=== PATIENT | male | born 1930 | race Caucasian/White ===

== ENCOUNTER 2016-11-03 16:23 | Observation (INO) | payer OTHER ==
[~2016-11-03] VITALS: Ht 180.3 cm; Wt 74.0 kg
[~2016-11-03 16:23] MED LIST: CEPH500C3 PO; GLUCTAB OR; JANU25TA OR; LORTA5
[2016-11-03 16:30] VITALS: BP 110/63; PULSE 80; RESP 18; TEMP 98.4; O2SAT 100
[2016-11-03 16:33] VITALS: BP 110/63; PULSE 71; RESP 18; TEMP 97.9; O2SAT 99
--- NOTE | 2016-11-03 16:44 | PD ---
HPI Chief Complaint: Chest Pain Time Seen by Provider: 16:30 Travel History International Travel<30 days: No Contact w/Intl Traveler<30days: No Traveled to known affect area: No History of Present Illness HPI 86-year-old male who is hard of hearing with a history of diabetes presents via EMS for evaluation of chest pain. He reports that over the past month he has had approximately 4 episodes of substernal chest pressure. Symptoms tend to last for a few minutes at a time and then resolved. Today she was sitting in a chair at the in waiting on an appointment with his primary care physician when he had an episode of chest pressure. It lasted for few minutes and then resolved. There are no obvious artery relieving factors. He was sent here via EMS for further evaluation. He currently has no pressure at all. He was given 2 nitroglycerin and 4 baby aspirin at the [place]. Denies any associated shortness of breath, diaphoresis, nausea or vomiting, recent illness, calf swelling, abdominal pain, fevers or chills. He believes that he had a stress test about 15 years ago. No personal history of coronary artery disease. No other complaints. PFSH Past Medical History Cancer: Yes (PROSTATE/RECENT DX) Diabetes: Yes Patient Takes Glucophage: No Diminished Hearing: Yes ?: Not Past Surgical History Abdominal Surgery: Yes (RT INGUINAL HERNIA REPAIR) Eye Surgery: Yes Social History Alcohol Use: Yes (OCCAS) Tobacco Use: No Substance Use: No Allergies-Medications (Allergen,Severity, Reaction): Coded Allergies: No Known Allergies (Verified , 05/27/12) Reported Meds & Prescriptions Reported Meds & Active Scripts Active Review of Systems Except as stated in HPI: all other systems reviewed are Neg Physical Exam Narrative GENERAL: Pleasant well-developed well-nourished elderly male in no acute distress answering questions appropriately SKIN: Warm and dry. HEAD: Atraumatic. Normocephalic. EYES: Pupils equal and round. No scleral icterus. No injection or drainage. ENT: No nasal bleeding or discharge. Mucous membranes pink and moist. NECK: Trachea midline. No JVD. CARDIOVASCULAR: Regular rate and rhythm. No murmur appreciated. RESPIRATORY: No accessory muscle use. Clear to auscultation. Breath sounds equal bilaterally. GASTROINTESTINAL: Abdomen soft, non-tender, nondistended. Hepatic and splenic margins not palpable. MUSCULOSKELETAL: No obvious deformities. No edema. NEUROLOGICAL: Awake and alert. No obvious cranial nerve deficits. Motor grossly within normal limits. Normal speech. PSYCHIATRIC: Appropriate mood and affect; insight and judgment normal. Data Data Last Documented VS Vital Signs Date Time Temp Pulse Resp B/P Pulse Ox O2 Delivery O2 Flow Rate FiO2 11/03/16 16:33 71 18 99 Room Air 11/03/16 16:33 97.9 110/63 Orders Electrocardiogram (11/03/16 16:42) Basic Metabolic Panel (Bmp) (11/03/16 16:42) Ckmb (Isoenzyme) Profile (11/03/16 16:42) Complete Blood Count With Diff (11/03/16 16:42) Magnesium (Mg) (11/03/16 16:42) Prothrombin Time / Inr (Pt) (11/03/16 16:42) Act Partial Throm Time (Ptt) (11/03/16 16:42) Troponin I (11/03/16 16:42) Chest, Single Ap (11/03/16 16:42) Ecg Monitoring (11/03/16 16:42) Bilateral Bp Monitoring (11/03/16 16:42) Iv Access Insert/Monitor (11/03/16 16:42) Oximetry (11/03/16 16:42) Oxygen Administration (11/03/16 16:42) Sodium Chloride 0.9% Flush (Ns Flush) (11/03/16 16:45) CKMB (11/03/16 16:45) CKMB% (11/03/16 16:45) Activity Bed Rest With Brp (11/03/16 18:02) Vital Signs (Adult) Q4H (11/03/16 18:02) Cardiac Rhythm .As Directed (11/03/16 18:02) ^ Notify Dr: Other .PRN (11/03/16 18:02) ^ Notify Dr. Parameters (11/03/16 18:02) Resp Oxygen Nasal Cannula (11/03/16 ) Diet Heart Healthy (11/03/16 Dinner) Ckmb (Isoenzyme) Profile (11/03/16 19:45) Ckmb (Isoenzyme) Profile (11/03/16 22:45) Troponin I (11/03/16 19:45) Troponin I (11/03/16 22:45) Electrocardiogram (11/03/16 19:45) Electrocardiogram (11/03/16 22:45) ^ Obtain (11/03/16 18:02) Sodium Chloride 0.9% Flush (Ns Flush) (11/03/16 18:15) Sodium Chloride 0.9% Flush (Ns Flush) (11/03/16 21:00) Tassel Snipper / Telemetry EMELY.Q8H (11/03/16 18:02) Npo After Midnight W/ Po Meds (11/03/16 Dinner) Admit Order (Ed Use Only) (11/03/16 18:07) Labs Laboratory Tests Test 11/03/16 16:45 White Blood Count 7.7 TH/MM3 Red Blood Count 3.96 MIL/MM3 Hemoglobin 12.3 GM/DL Hematocrit 36.1 % Mean Corpuscular Volume 91.2 FL Mean Corpuscular Hemoglobin 31.1 PG Mean Corpuscular Hemoglobin 34.0 % Concent Red Cell Distribution Width 14.1 % Platelet Count 154 TH/MM3 Mean Platelet Volume 9.5 FL Neutrophils (%) (Auto) 71.5 % Lymphocytes (%) (Auto) 19.1 % Monocytes (%) (Auto) 7.1 % Eosinophils (%) (Auto) 1.3 % Basophils (%) (Auto) 1.0 % Neutrophils # (Auto) 5.5 TH/MM3 Lymphocytes # (Auto) 1.5 TH/MM3 Monocytes # (Auto) 0.5 TH/MM3 Eosinophils # (Auto) 0.1 TH/MM3 Basophils # (Auto) 0.1 TH/MM3 CBC Comment DIFF FINAL Differential Comment Prothrombin Time 10.8 SEC Prothromb Time International 1.0 RATIO Ratio Activated Partial 25.9 SEC Thromboplast Time Sodium Level 142 MEQ/L Potassium Level 4.7 MEQ/L Chloride Level 106 MEQ/L Carbon Dioxide Level 30.4 MEQ/L Anion Gap 6 MEQ/L Blood Urea Nitrogen 32 MG/DL Creatinine 1.50 MG/DL Estimat Glomerular Filtration 44 ML/MIN Rate Random Glucose 138 MG/DL Calcium Level 8.8 MG/DL Magnesium Level 2.0 MG/DL Total Creatine Kinase 106 U/L Creatine Kinase MB 3.0 NG/ML Troponin I LESS THAN 0.02 NG/ML MDM Medical Decision Making Medical Screen Exam Complete: Yes Emergency Medical Condition: Yes Medical Record Reviewed: Yes Interpretation(s) EKG sinus tachycardia Differential Diagnosis Acute coronary syndrome, angina, costochondritis, GERD, pericarditis, myocarditis, pneumonia, pneumothorax Narrative Course 86-year-old male with diabetes was sent from the [place] for evaluation of substernal chest pressure which lasted for a few minutes and then resolved. He received 325 mg of aspirin as well as 2 nitroglycerin reportedly at the [facility] today. Currently he feels fine. We'll check basic laboratory, chest x-ray and EKG. Ultimately the patient will be admitted to the chest pain center for rule out purposes. Laboratory is been reviewed. He does have renal insufficiency with no recent creatinine and BUN on file. He can likely follow-up with his primary care physician about this after discharge for repeat BMP. Diagnosis Primary Impression: Chest pain Qualified Code: R07.9 - Chest pain, unspecified type Admitting Information Admitting Physician Requests: Edinson Sheriff Nov 03, 2016 16:44
[2016-11-03] MEDS ORDERED: SODIUM CHLORIDE 0.9% FLUSH 5 ML FLUSH IVF PRN ×2 (16:45→18:15)
[2016-11-03 17:00] LABS: AUTOMATED NEUTROPHIL # 5.5 TH/MM3 (1.8-7.7); BASOPHIL # 0.1 TH/MM3 (0-0.2); EOSINOPHIL # 0.1 TH/MM3 (0-0.4); EOSINOPHIL % 1.3 % (0.0-4.0); HEMATOCRIT 36.1 % (39.0-51.0); HEMO FLAGS DIFF FINAL; LYMPH % 19.1 % (9.0-44.0); LYMPHOCYTE # 1.5 TH/MM3 (1.0-4.8); MEAN CELL VOLUME 91.2 FL (80.0-100.0); MEAN CORPUSCULAR HEMOGLOBIN 31.1 PG (27.0-34.0); MONO % 7.1 % (0.0-8.0); NEUT % 71.5 % (16.0-70.0); PLATELET COUNT 154 TH/MM3 (150-450); RED BLOOD COUNT 3.96 MIL/MM3 (4.50-5.90); RED CELL DISTRIBUTION WIDTH 14.1 % (11.6-17.2); WHITE BLOOD COUNT 7.7 TH/MM3 (4.0-11.0)
[2016-11-03 17:09] LABS: APTT (PATIENT) 25.9 SEC (24.3-30.1); PROTHROMBIN TIME - PATIENT 10.8 SEC (9.8-11.6)
[2016-11-03 17:22] LABS: ANION GAP 6 MEQ/L (5-15); BICARBONATE 30.4 MEQ/L (21.0-32.0); BLOOD UREA NITROGEN 32 MG/DL (7-18); CHLORIDE 106 MEQ/L (98-107); GLOMERULAR FILTRATION RATE 44 ML/MIN (>89); POTASSIUM 4.7 MEQ/L (3.5-5.1); SODIUM (NA) 142 MEQ/L (136-145)
[2016-11-03 17:27] LABS: CREATINE KINASE 106 U/L (39-308)
--- NOTE | 2016-11-03 17:40 | PD ---
Physical Exam Date Seen by Provider: Nov 03, 2016 Time Seen by Provider: 17:15 Narrative Ancillary Baylee Phillips. The patient presents here from the [place] after he had an episode of chest pain. Patient states he's had 4 episodes of chest pain over the last month. While waiting the [facility] waiting room, he had another episode of chest pain/chest pressure. They gave him 2 nitroglycerin and aspirin and sent him here for further evaluation. The patient does have a history of diabetes mellitus. He is pain-free now at the time of my examination. Data Data Last Documented VS Vital Signs Date Time Temp Pulse Resp B/P Pulse Ox O2 Delivery O2 Flow Rate FiO2 11/03/16 16:33 71 18 99 Room Air 11/03/16 16:33 97.9 110/63 Orders Electrocardiogram (11/03/16 16:42) Basic Metabolic Panel (Bmp) (11/03/16 16:42) Ckmb (Isoenzyme) Profile (11/03/16 16:42) Complete Blood Count With Diff (11/03/16 16:42) Magnesium (Mg) (11/03/16 16:42) Prothrombin Time / Inr (Pt) (11/03/16 16:42) Act Partial Throm Time (Ptt) (11/03/16 16:42) Troponin I (11/03/16 16:42) Chest, Single Ap (11/03/16 16:42) Ecg Monitoring (11/03/16 16:42) Bilateral Bp Monitoring (11/03/16 16:42) Iv Access Insert/Monitor (11/03/16 16:42) Oximetry (11/03/16 16:42) Oxygen Administration (11/03/16 16:42) Sodium Chloride 0.9% Flush (Ns Flush) (11/03/16 16:45) CKMB (11/03/16 16:45) CKMB% (11/03/16 16:45) Activity Bed Rest With Brp (11/03/16 18:02) Vital Signs (Adult) Q4H (11/03/16 18:02) Cardiac Rhythm .As Directed (11/03/16 18:02) ^ Notify Dr: Other .PRN (11/03/16 18:02) ^ Notify . Parameters (11/03/16 18:02) Resp Oxygen Nasal Cannula (11/03/16 ) Diet Heart Healthy (11/03/16 Dinner) Ckmb (Isoenzyme) Profile (11/03/16 19:45) Ckmb (Isoenzyme) Profile (11/03/16 22:45) Troponin I (11/03/16 19:45) Troponin I (11/03/16 22:45) Electrocardiogram (11/03/16 19:45) Electrocardiogram (11/03/16 22:45) ^ Obtain (11/03/16 18:02) Sodium Chloride 0.9% Flush (Ns Flush) (11/03/16 18:15) Sodium Chloride 0.9% Flush (Ns Flush) (11/03/16 21:00) Shipping Hand / Telemetry EMELY.Q8H (11/03/16 18:02) Npo After Midnight W/ Po Meds (11/03/16 Dinner) Admit Order (Ed Use Only) (11/03/16 18:07) Labs Laboratory Tests Test 11/03/16 16:45 White Blood Count 7.7 TH/MM3 Red Blood Count 3.96 MIL/MM3 Hemoglobin 12.3 GM/DL Hematocrit 36.1 % Mean Corpuscular Volume 91.2 FL Mean Corpuscular Hemoglobin 31.1 PG Mean Corpuscular Hemoglobin 34.0 % Concent Red Cell Distribution Width 14.1 % Platelet Count 154 TH/MM3 Mean Platelet Volume 9.5 FL Neutrophils (%) (Auto) 71.5 % Lymphocytes (%) (Auto) 19.1 % Monocytes (%) (Auto) 7.1 % Eosinophils (%) (Auto) 1.3 % Basophils (%) (Auto) 1.0 % Neutrophils # (Auto) 5.5 TH/MM3 Lymphocytes # (Auto) 1.5 TH/MM3 Monocytes # (Auto) 0.5 TH/MM3 Eosinophils # (Auto) 0.1 TH/MM3 Basophils # (Auto) 0.1 TH/MM3 CBC Comment DIFF FINAL Differential Comment Prothrombin Time 10.8 SEC Prothromb Time International 1.0 RATIO Ratio Activated Partial 25.9 SEC Thromboplast Time Sodium Level 142 MEQ/L Potassium Level 4.7 MEQ/L Chloride Level 106 MEQ/L Carbon Dioxide Level 30.4 MEQ/L Anion Gap 6 MEQ/L Blood Urea Nitrogen 32 MG/DL Creatinine 1.50 MG/DL Estimat Glomerular Filtration 44 ML/MIN Rate Random Glucose 138 MG/DL Calcium Level 8.8 MG/DL Magnesium Level 2.0 MG/DL Total Creatine Kinase 106 U/L Creatine Kinase MB 3.0 NG/ML Troponin I LESS THAN 0.02 NG/ML [facility] Medical Record Reviewed: Yes Supervised Visit with CHALO: Yes Narrative Course 86-year-old with a history of diabetes mellitus, presents from the [place] with complaints of chest pain. The patient had 4 previous episodes in the last month. Patient's EKG does not show acute ST elevations or depressions with a heart rate 110. The patient's cardiac enzymes are within normal limits. Given his pain and symptoms, we have recommended that he be admitted to the chest pain center. Initially the patient did not wish to stay however upon further encouragement, he agreed to stay. Diagnosis Primary Impression: Chest pain Additional Impression: Diabetes mellitus Taiwo Chery MD Nov 03, 2016 17:40
--- NOTE | 2016-11-03 18:03 | RADRPT ---
EXAM DATE/TIME: 11/03/2016 17:17 [facility] COMPARISON: No previous studies available for comparison. INDICATIONS : Short of breath. MEDICAL HISTORY : None. SURGICAL HISTORY : None. ENCOUNTER: Initial ACUITY: 1 day PAIN SCORE: 0/10 LOCATION: Bilateral chest FINDINGS: A single view of the chest demonstrates the lungs to be symmetrically aerated without evidence of mas s, infiltrate or effusion. The cardiomediastinal contours are unremarkable. Osseous structures are intact. CONCLUSION: No evidence of acute cardiopulmonary disease. Duong Moreno MD on November 03, 2016 at 18:01 Board Certified Radiologist. This report was verified electronically.
[2016-11-03 18:56] VITALS: BP 134/73; PULSE 67; RESP 18; O2SAT 100
[2016-11-03] MEDS ORDERED: METF500T PO (19:14)
[2016-11-03] MEDS ORDERED: INSULIN SQ (19:14)
[2016-11-03] MEDS ORDERED: GLIM4TAB PO (19:14)
[2016-11-03 20:16] VITALS: BP 139/79; PULSE 86; RESP 16; O2SAT 94
[2016-11-03] MEDS: SODIUM CHLORIDE 0.9% FLUSH 5 ML FLUSH IVF SCH (20:53)
[2016-11-03 21:16] LABS: CREATINE KINASE 87 U/L (39-308)
[2016-11-03 23:36] VITALS: BP 109/65; PULSE 55; RESP 18; TEMP 98.2; O2SAT 97
[2016-11-04 00:10] VITALS: PULSE 60
[2016-11-04 00:34] LABS: CREATINE KINASE 81 U/L (39-308)
[2016-11-04 04:00] VITALS: BP 122/71; PULSE 65; RESP 18; TEMP 97.8; O2SAT 96
[2016-11-04 04:05] VITALS: PULSE 66
[2016-11-04 07:35] VITALS: BP 132/71; PULSE 78; RESP 20; TEMP 98.7; O2SAT 96
[2016-11-04 08:00] VITALS: PULSE 83
[2016-11-04] MEDS ORDERED: PANTOPRAZOLE SOD 40 MG DELAYED RELEASE TAB PO SCH (09:00)
[2016-11-04] MEDS ORDERED: ACETAMINOPHEN 500 MG CPLT PO PRN (09:00)
[2016-11-04] MEDS ORDERED: NITROGLYCERIN 0.4 MG SL 25 TABS/BTL SL PRN (09:00)
[2016-11-04] MEDS ORDERED: ONDANSETRON HCL 4 MG/2 ML VIAL IV PRN (09:00)
[2016-11-04] MEDS ORDERED: ASPIRIN 325 MG TAB PO SCH (09:00)
[2016-11-04] MEDS: SODIUM CHLORIDE 0.9% FLUSH 5 ML FLUSH IVF SCH (09:04)
[2016-11-04] MEDS ORDERED: GLUCAGON 1 MG/ML VIAL OTHER PRN (10:15)
[2016-11-04] MEDS ORDERED: DEXTROSE 50% IN WATER 50 ML VIAL(D50) IV PUSH PRN (10:15)
--- NOTE | 2016-11-04 10:21 | HHI.HP ---
HPI Primary Care Physician Physician [facility]- Dr. Portillo Chief Complaint Chest pressure History of Present Illness 86-year-old male with known diabetes presents to the emergency room via EMS. He was at his regular scheduled primary care appointment yesterday. There he developed chest pressure in his midsternal area severity 11/05. States this is not pain but chest pressure. No radiation. Duration approximately 15 minutes. No associated symptoms. No precipitating factors. No relieving factors. Over the past month, he had 4 episodes similar to yesterday's chest pressure episode. Relieving factors eating. Chest pressures nonexertional. Past episode also lasted approximately 15 minutes. Never had chest pain in the past. Position, movement, or breathing did not make pressure better or worse. Feels similar to acid reflux he has had in the past. In fact, one of his chest pressure episodes was relieved with 3 Tums. Endorses multiple stressors in past 6 months, including 5 close relatives/friends have . Review of Systems General: No fatigue,weakness, fever, chills, recent travel, recent illness, or change in appetite HEENT: No BROOKE, no vision changes, no nasal congestion or drainage, no dysphasia CV: No current chest pain or pressure. Occasionally feels palpitations and evening hours. No intermittent leg pain or dizziness RESP: No SOB, cough, wheeze, or recent URI GI: No nausea, vomiting, bowel changes, constipation, pain, distention, melena, blood in the stool. Last week endorses day diarrhea, this has since resolved. No change in appetite, no unintentional weight gain or weight loss : No dysuria, urgency, frequency, history of elevated PSA-follows with PCP. EXT: No lower leg edema, no paraesthesias MS: No discomfort or change in ROM. NEURO: No change in memory, dizziness, difficulty with balance, LOC, motor/ sensory deficits PSYCH: No anxiety or depression. Situational stress as stated above. SKIN: No rashes, no concerning lesions Past Family Social History Allergies: Coded Allergies: No Known Allergies (Verified , 05/27/12) Past Medical History Diabetes, BPH, hard of hearing Past Surgical History None Reported Medications Reported Meds & Active Scripts Active Reported Metformin (Metformin HCl) 500 Mg Tab 1,000 Mg PO BID With meals [Insulin] 5 Units SQ BID-name of insulin unknown at this time Glimepiride 4 Mg Tab 4 Mg PO BID Active Ordered Medications Current Medications Medications (Trade) Dose Ordered Sig/Kristen Route Start Time Stop Time Status Last Admin (Tylenol) 500 mg Q4H PRN PO 11/04/16 09:00 (Zofran Inj) 4 mg Q6H PRN IV 11/04/16 09:00 (Protonix) 40 mg DAILY PO 11/04/16 09:00 11/04/16 09:04 (Nitrostat Sl) 0.4 mg Q5M PRN SL 11/04/16 09:00 (Aspirin) 325 mg DAILY PO 11/04/16 09:00 11/04/16 09:04 (D50w (Vial) Inj) 25 ml UNSCH PRN IV PUSH 11/04/16 10:15 (Glucagon Inj) 1 mg UNSCH PRN OTHER 11/04/16 10:15 Family History Noncontributory for early onset cardiovascular disease Social History Retired, , 4 grown children. He quit smoking 1951. Rare alcohol use. No remote or current illegal drug use. Known diabetes. No known hypertension or hyperlipidemia. Does not take statins or LIANA inhibitor's, states he was never told to do so. Although remembers remotely before changing MDs he was on a pill to "protect my kidneys. " He is active daily. Activities include softball, bowling, and the gym membership. Past cardiac testing Exercise treadmill 1520 years ago. Has never had cardiac catheterization nor required a naphthalene operator. Physical Exam Vital Signs Vital Signs Date Time Temp Pulse Resp B/P Pulse Ox O2 Delivery O2 Flow Rate FiO2 11/04/16 08:00 83 11/04/16 07:35 98.7 78 20 132/71 96 11/04/16 04:05 66 11/04/16 04:00 97.8 65 18 122/71 96 11/04/16 00:10 60 11/03/16 23:36 98.2 55 18 109/65 97 11/03/16 20:16 86 16 139/79 94 Room Air 11/03/16 18:56 67 18 134/73 100 Room Air 11/03/16 16:33 71 18 99 Room Air 11/03/16 16:33 97.9 71 18 110/63 99 Room Air 11/03/16 16:30 98.4 80 18 110/63 100 11/03/16 16:30 98 Room Air Physical Exam GENERAL: Alert WN, WD, NAD, pleasant, male who appears younger than stated age HEAD: NC, AT EYES: Sclera clear, conjunctiva without injection, pupils equal and round ENT: Mucous membranes pink and moist NECK: Supple, no masses CV: RRR, without murmur, rub, gallop, no JVD, S1-S2 no S3-S4. No carotid or femoral bruits RESP: Clear lungs throughout bilateral, no crackles, wheeze, rhonchi, symmetrical chest rise, nonlabored, able to speak in full sentences ABD: Soft, flat, NT, ND, no masses, positive bowel tones BACK: No scoliosis EXT: Pulses +24, no dependent edema MS: Normal tone 4 extremities, nontender, no obvious deformities, full range of motion NEURO: CN II through CN XII grossly intact, motor strength 5/5, gait WNL PSYCH: A+O 3, pleasant affect, appropriate speech, appropriate mood and affect , insight and judgment SKIN: Normal turgor, normal texture, no lesions, no rashes, brisk cap refill, even hair distribution Laboratory Laboratory Tests Test 11/03/16 11/03/16 11/03/16 16:45 20:04 23:58 White Blood Count 7.7 Red Blood Count 3.96 Hemoglobin 12.3 Hematocrit 36.1 Mean Corpuscular Volume 91.2 Mean Corpuscular Hemoglobin 31.1 Mean Corpuscular Hemoglobin 34.0 Concent Red Cell Distribution Width 14.1 Platelet Count 154 Mean Platelet Volume 9.5 Neutrophils (%) (Auto) 71.5 Lymphocytes (%) (Auto) 19.1 Monocytes (%) (Auto) 7.1 Eosinophils (%) (Auto) 1.3 Basophils (%) (Auto) 1.0 Neutrophils # (Auto) 5.5 Lymphocytes # (Auto) 1.5 Monocytes # (Auto) 0.5 Eosinophils # (Auto) 0.1 Basophils # (Auto) 0.1 CBC Comment DIFF FINAL Differential Comment Prothrombin Time 10.8 Prothromb Time International 1.0 Ratio Activated Partial 25.9 Thromboplast Time Sodium Level 142 Potassium Level 4.7 Chloride Level 106 Carbon Dioxide Level 30.4 Anion Gap 6 Blood Urea Nitrogen 32 Creatinine 1.50 Estimat Glomerular Filtration 44 Rate Random Glucose 138 Calcium Level 8.8 Magnesium Level 2.0 Total Creatine Kinase 106 87 81 Creatine Kinase MB 3.0 Troponin I LESS THAN 0.02 LESS THAN 0.02 LESS THAN 0.02 Result Diagram: 11/03/16 1645 11/03/16 1645 Imaging Last Impressions Chest X-Ray 11/03/16 1642 Signed Impressions: Service Date/Time: Thursday, November 03, 2016 17:17 - CONCLUSION: No evidence of acute cardiopulmonary disease. Duong Moreno MD Course EKGs 3 EKGs show normal sinus rhythm, normal axis, with no ST or T-segment changes. First EKG showed sinus arrhythmia/sinus rhythm. Assessment and Plan Assessment and Plan #1 Chest painadmitted to chest pain center. Ruled out with 3 EKGs, cardiac enzymes, and monitored throughout evening. Was seen and evaluated by Dr. Jani Perry. Completed an exercise stress test. Stress test was on remarkable with no signs of ischemia and good exercise tolerance. Will be discharged this afternoon. #2 GERDdiscussed in length possibility chest pressure could be related to acid reflux. Encouraged daily [id number] preventative medications and to discuss with PCP at follow-up appointment. Take antacids liberally as needed. #3 DiabetesSSI ordered. No changes in home going medications for discharge. Encouraged patient to discuss with PCP the addition of an liana inhibitor and statin for preventative measures. Catalina Potts Nov 04, 2016 10:21
[2016-11-04] MEDS ORDERED: INSULIN ASPART SUPPLEMENTAL SCALE SQ SCH (11:00)
[2016-11-04 11:15] VITALS: BP 123/66; PULSE 85; RESP 20; TEMP 99.4; O2SAT 99
[2016-11-04] MEDS ORDERED: metFORMIN HCL 500 MG TAB PO SCH (11:15)
--- NOTE | 2016-11-04 11:33 | TR ---
Date Performed: 11/04/2016 Time Performed: 10:27:13 DOCTOR: Jani Perry DRUG LIST: CLINICAL HISTORY: CHEST PAIN REASON FOR TEST: REASON FOR ENDING: OBSERVATION: CONCLUSION: Saeid protocol completed. Stopped sec to exceeding target heart rate and leg fatigue . Maximum KZ=580 Target HR Achieved=91.0% Maximum IN=874/60 Total Exercise Time=7:01. No reprod chest discomfort. Rare PVC. No st t segment changes to sugg ischemia. Good exercise tolerance. Normal bp r esponse. Recovery quick and unremarkable. COMMENTS: Conclusion: Normal treadmill exercise. No evidence of ischemia.
[2016-11-04] MEDS ORDERED: GLIMEPIRIDE 4 MG TAB PO SCH (12:00)
--- NOTE | 2016-11-04 12:04 | HHI.DCPOC ---
Discharge Care Plan Diagnosis: (1) Atypical chest pain (2) GERD (gastroesophageal reflux disease) (3) Diabetes mellitus Goals to Promote Your Health * To prevent worsening of your condition and complications * To maintain your health at the optimal level Directions to Meet Your Goals Take your medications as prescribed Follow your dietary instruction Follow activity as directed Keep your appointments as scheduled Take your immunizations and boosters as scheduled If your symptoms worsen call your PCP, if no PCP go to Urgent Care Center or Emergency Room Smoking is Dangerous to Your Health. Avoid second hand smoke Call the 24-hour hour crisis hotline for domestic abuse at Catalina Potts Nov 04, 2016 12:04
--- NOTE | 2016-11-04 14:40 | EKG ---
Date Performed: 11/03/2016 Time Performed: 23:34:04 PTAGE: 86 years EKG: SINUS BRADYCARDIA WITH OCCASIONAL SUPRAVENTRICULAR PREMATURE COMPLEXES BORDERLINE ECG Sinus arrhythmia PREVIOUS TRACING : 11/03/2016 20.13 Since previous tracing, no significant change noted DOCTOR: Jani Perry Interpretating Date/Time 11/04/2016 14:39:06
--- NOTE | 2016-11-04 14:41 | EKG ---
Date Performed: 11/03/2016 Time Performed: 20:13:23 PTAGE: 86 years EKG: Sinus rhythm WITH MARKED SINUS ARRHYTHMIA BORDERLINE ECG PREVIOUS TRACING : 11/03/2016 16.33 Since previous tracing, no significant change noted DOCTOR: Jani Perry Interpretating Date/Time 11/04/2016 14:39:56
--- NOTE | 2016-11-04 14:43 | EKG ---
Date Performed: 11/03/2016 Time Performed: 16:33:19 PTAGE: 86 years EKG: SINUS TACHYCARDIA ABNORMAL RHYTHM ECG PREVIOUS TRACING : 09/24/2009 21.07 Since previous tracing, no significant change noted DOCTOR: Jani Perry Interpretating Date/Time 11/04/2016 14:42:19
== END 2016-11-04 13:13 | disposition home or self-care (01) ==
LOC: NEPC 16:23 → NEDA 18:08 → UNDOADMOB 18:08 → NEPGCP 23:11
PROVIDERS: ADMIT Internal Medicine Cardiovascular Disease; ATTEND Internal Medicine Cardiovascular Disease
DX: E07.89 Other specified disorders of thyroid (principal); K21.9 Gastro-esophageal reflux disease without esophagitis; E11.9 Type 2 diabetes mellitus without complications
CPT/HCPCS: 71010; 80048; 82550; 82552; 82948; 83735; 84484; 85025; 85610; 85730; 93005; 93017; 99285; G0378

== ENCOUNTER 2017-10-20 19:56 | Inpatient (IN) | payer OTHER, MEDICARE ==
[~2017-10-20] VITALS: Ht 182.9 cm; Wt 65.0 kg
[~2017-10-20 19:56] MED LIST changes: -CEPH500C3 PO; +GLIM4TAB PO; -GLUCTAB OR; +INSULIN SQ; -JANU25TA OR; -LORTA5; +METF500T PO
[2017-10-20 20:02] VITALS: BP 189/85; PULSE 81; RESP 16; TEMP 97.8; O2SAT 99
[2017-10-20] MEDS ORDERED: NOVORP2 SQ (20:08)
[2017-10-20] MEDS ORDERED: MORPHINE SULFATE 2 MG/ML INJ IV PUSH ONE (20:15)
[2017-10-20] MEDS ORDERED: ONDANSETRON HCL 4 MG/2 ML VIAL IV PUSH ONE (20:15)
--- NOTE | 2017-10-20 21:05 | RADRPT ---
EXAM DATE/TIME: 10/20/2017 20:25 [facility] COMPARISON: CHEST SINGLE AP, November 03, 2016, 17:17. INDICATIONS : Trauma due to fall. MEDICAL HISTORY : Diabetes mellitus type II. SURGICAL HISTORY : Hernia repair. ENCOUNTER: Initial ACUITY: 3 weeks PAIN SCORE: 0/10 LOCATION: Bilateral chest FINDINGS: Mild diffuse interstitial prominence similar to the prior exam. No pneumothorax, effusion or new pare nchymal opacity. Cardiomediastinal contours are within normal limits. Bony thorax is grossly intact. CONCLUSION: 1. No acute abnormality or significant interval change. Abhinav Diaz MD on October 20, 2017 at 21:03 Board Certified Radiologist. This report was verified electronically.
--- NOTE | 2017-10-20 21:07 | RADRPT ---
EXAM DATE/TIME: 10/20/2017 20:25 [facility] COMPARISON: No previous studies available for comparison. EXTERNAL COMPARISON : [facility] October 20, 2017 INDICATIONS : Pain due to fall three weeks ago. MEDICAL HISTORY : Diabetes mellitus type II. SURGICAL HISTORY : Hernia repair. ENCOUNTER: Initial ACUITY: 3 weeks PAIN SCORE: 10/10 LOCATION: Right hip, anterior. FINDINGS: Subpectoral right femoral neck fracture. Remaining osseous structures are intact. Joint spaces are ma intained. Sacral arches are intact. Soft tissues are unremarkable. CONCLUSION: 1. Subcapital right femoral neck fracture. Abhinav Diaz MD on October 20, 2017 at 21:04 Board Certified Radiologist. This report was verified electronically.
[2017-10-20 21:17] LABS: AUTOMATED NEUTROPHIL # 11.3 TH/MM3 (1.8-7.7); BASOPHIL # 0.1 TH/MM3 (0-0.2); BASOPHIL % 0.7 % (0.0-2.0); EOSINOPHIL % 0.3 % (0.0-4.0); HEMATOCRIT 36.4 % (39.0-51.0); HEMOGLOBIN 12.2 GM/DL (13.0-17.0); LYMPH % 9.3 % (9.0-44.0); LYMPHOCYTE # 1.2 TH/MM3 (1.0-4.8); MEAN CELL VOLUME 89.3 FL (80.0-100.0); MEAN CORPUSCULAR HEMOGLOBIN 29.8 PG (27.0-34.0); MEAN CORPUSCULAR HGB CONC 33.4 % (32.0-36.0); MEAN PLATELET VOLUME 9.8 FL (7.0-11.0); MONO % 5.4 % (0.0-8.0); MONOCYTE # 0.7 TH/MM3 (0-0.9); NEUT % 84.3 % (16.0-70.0); PLATELET COUNT 228 TH/MM3 (150-450); RED BLOOD COUNT 4.08 MIL/MM3 (4.50-5.90); RED CELL DISTRIBUTION WIDTH 13.3 % (11.6-17.2); WHITE BLOOD COUNT 13.4 TH/MM3 (4.0-11.0)
[2017-10-20 21:24] LABS: INTERNATIONAL NORMALIZED RATIO 1.1 RATIO; PROTHROMBIN TIME - PATIENT 10.7 SEC (9.8-11.6)
[2017-10-20 21:38] LABS: ALT (GPT) 25 U/L (12-78)
[2017-10-20 21:39] LABS: ALBUMIN 3.3 GM/DL (3.4-5.0); AST (GOT) 23 U/L (15-37); BICARBONATE 29.3 MEQ/L (21.0-32.0); BLOOD UREA NITROGEN 51 MG/DL (7-18); CALCIUM 9.3 MG/DL (8.5-10.1); CHLORIDE 97 MEQ/L (98-107); CREATININE 1.65 MG/DL (0.60-1.30); GLOMERULAR FILTRATION RATE 40 ML/MIN (>89); GLUCOSE,RANDOM 319 MG/DL (74-106); MAGNESIUM 2.3 MG/DL (1.5-2.5); SODIUM (NA) 134 MEQ/L (136-145)
[2017-10-20 21:41] LABS: ALKALINE PHOSPHATASE 77 U/L (45-117); TOTAL BILIRUBIN ADULT 0.6 MG/DL (0.2-1.0); TOTAL PROTEIN 7.3 GM/DL (6.4-8.2)
--- NOTE | 2017-10-20 21:44 | PD ---
HPI Chief Complaint: Pain: Acute or Chronic Time Seen by Provider: 20:07 Travel History International Travel<30 days: No Contact w/Intl Traveler<30days: No Traveled to known affect area: No History of Present Illness HPI 87-year-old male that presents to the ED for evaluation of right hip pain. Apparently patient had a fall about 3 weeks ago moving a wheelbarrow. Per patient he was doing some yard work when he lost his footing and landed on his left hip. He was not able to get himself back up and had a they were helping. Per patient he had a lot of pain since and did not seek any medical help until this week when he went to see his doctor. He had an x-ray done yesterday at [facility] that showed apparently fracture. Per patient he was sent here for eval for the fracture. He does not have a orthopedic surgeon. He denies any other medical issues. No head injury. Per patient he has no pain as long as he doesn't move. Any weightbearing or movement makes pain worse. Per patient is 7 out of 10. Currently 4 out of 10. He was given morphine by ambulance. Denies any urinary or bowel movement issues. History of diabetes. No allergies to medication. No other medical issues. PFSH Past Medical History Heart Rhythm Problems: No Cancer: Yes (PROSTATE) Cardiac Catheterization: No Cardiovascular Problems: No High Cholesterol: No Congestive Heart Failure: No Diabetes: Yes Patient Takes Glucophage: Yes Diminished Hearing: Yes Past Surgical History Abdominal Surgery: Yes (RT INGUINAL HERNIA REPAIR) Coronary Artery Bypass Graft: No Eye Surgery: Yes Social History Alcohol Use: Yes (OCCAS) Tobacco Use: No (PT STATES NOT SINCE HIS 30S) Substance Use: No Allergies-Medications (Allergen,Severity, Reaction): Coded Allergies: No Known Allergies (Verified Adverse Reaction, Unknown, 10/20/17) Reported Meds & Prescriptions Reported Meds & Active Scripts Active Reported Novolin R Inj (Insulin Human Regular) 1,000 Unit/10 Ml Vial 7 Units SQ BID Metformin (Metformin HCl) 500 Mg Tab 1,000 Mg PO BID With meals Glimepiride 4 Mg Tab 4 Mg PO BIDAC Review of Systems Except as stated in HPI: all other systems reviewed are Neg Physical Exam Narrative GENERAL: SKIN: Warm and dry. HEAD: Atraumatic. Normocephalic. EYES: Pupils equal and round. No scleral icterus. No injection or drainage. ENT: No nasal bleeding or discharge. Mucous membranes pink and moist. Tongue is midline. No uvula deviation. NECK: Trachea midline. No JVD. CARDIOVASCULAR: Regular rate and rhythm. RESPIRATORY: No accessory muscle use. Clear to auscultation. Breath sounds equal bilaterally. GASTROINTESTINAL: Abdomen soft, non-tender, nondistended. Hepatic and splenic margins not palpable. MUSCULOSKELETAL: Extremities without clubbing, cyanosis, or edema. No obvious deformities. Full ROM of the upper and lower extremities bilaterally. Significant pain with any movement of the right hip. There is some shortening and rotation of the right hip. 2+ pulses bilaterally. sensation intact. NEUROLOGICAL: Awake and alert. No obvious cranial nerve deficits. Motor grossly within normal limits. Five out of 5 muscle strength in the arms and legs. Normal speech. PSYCHIATRIC: Appropriate mood and affect; insight and judgment normal. Data Data Last Documented VS Vital Signs Date Time Temp Pulse Resp B/P (MAP) Pulse Ox O2 Delivery O2 Flow Rate FiO2 10/20/17 20:02 97.8 81 16 189/85 (119) 99 Orders Orders Morphine Inj (Morphine Inj) (10/20/17 20:15) Ondansetron Inj (Zofran Inj) (10/20/17 20:15) Hip, Uni(Ap&Lat) W Ap Pelvis (10/20/17 ) Complete Blood Count With Diff (10/20/17 20:27) Comprehensive Metabolic Panel (10/20/17 20:27) Prothrombin Time / Inr (Pt) (10/20/17 20:27) Act Partial Throm Time (Ptt) (10/20/17 20:27) Urinalysis - C+S If Indicated (10/20/17 20:27) Magnesium (Mg) (10/20/17 20:27) Chest, Single Ap (10/20/17 20:27) Iv Access Insert/Monitor (10/20/17 20:27) Ecg Monitoring (10/20/17 20:27) Oximetry (10/20/17 20:27) Labs Laboratory Tests Test 10/20/17 20:55 White Blood Count 13.4 TH/MM3 Red Blood Count 4.08 MIL/MM3 Hemoglobin 12.2 GM/DL Hematocrit 36.4 % Mean Corpuscular Volume 89.3 FL Mean Corpuscular Hemoglobin 29.8 PG Mean Corpuscular Hemoglobin Concent 33.4 % Red Cell Distribution Width 13.3 % Platelet Count 228 TH/MM3 Mean Platelet Volume 9.8 FL Neutrophils (%) (Auto) 84.3 % Lymphocytes (%) (Auto) 9.3 % Monocytes (%) (Auto) 5.4 % Eosinophils (%) (Auto) 0.3 % Basophils (%) (Auto) 0.7 % Neutrophils # (Auto) 11.3 TH/MM3 Lymphocytes # (Auto) 1.2 TH/MM3 Monocytes # (Auto) 0.7 TH/MM3 Eosinophils # (Auto) 0.0 TH/MM3 Basophils # (Auto) 0.1 TH/MM3 CBC Comment DIFF FINAL Differential Comment Prothrombin Time 10.7 SEC Prothromb Time International Ratio 1.1 RATIO Activated Partial Thromboplast Time 24.5 SEC MDM Medical Decision Making Medical Screen Exam Complete: Yes Emergency Medical Condition: Yes Medical Record Reviewed: Yes Interpretation(s) xray shows subcapital femoral neck fracture CBC & BMP Diagram 10/20/17 20:55 Total Protein 7.3, Albumin 3.3 L, Calcium Level 9.3, Magnesium Level 2.3, Alkaline Phosphatase 77, Aspartate Amino Transf (AST/SGOT) 23, Alanine Aminotransferase (ALT/SGPT) 25, Total Bilirubin 0.6 Differential Diagnosis Fracture versus sprain versus strain versus bruise versus contusion Narrative Course 37-year-old male that presents to the ED for evaluation right hip pain. Patient was properly examined and was found to have signs and symptoms consistent with fracture. I was able to review the records of the x-rays that he had outpatient and the did show right hip subcapital femoral neck fracture. Unclear if patient has an appointment with orthopedic doctor as he is not really sure but he was told to come here to get evaluated as she continues to have pain. X-ray labs were ordered. X-ray labs confirm fracture. This time her condition is for admission for further eval and likely orthopedic consultation and possible surgery. Patient agrees with plan. Patient was given pain medication with relief. Case discussed with Dr. Wu who agrees to admission. Diagnosis Primary Impression: Hip fracture, right Qualified Codes: S72.001A - Fracture of unspecified part of neck of right femur, initial encounter for closed fracture Admitting Information Admitting Physician Requests: Admit Jonah Chau Oct 20, 2017 21:44
[2017-10-20 22:04] VITALS: BP 158/84; PULSE 68; RESP 16; O2SAT 98
[2017-10-20 22:05] VITALS: O2SAT 98
[2017-10-20] MEDS ORDERED: BISACODYL 10 MG SUPP RECTAL PRN (23:00)
[2017-10-20] MEDS ORDERED: GLUCAGON 1 MG/ML VIAL OTHER PRN (23:00)
[2017-10-20] MEDS ORDERED: LACTULOSE SYRUP 20 GM/30 ML CUP PO PRN (23:00)
[2017-10-20] MEDS ORDERED: SODIUM CHLORIDE 0.9% FLUSH 10 ML FLUSH IV FLUSH PRN (23:00)
[2017-10-20] MEDS ORDERED: SENNOSIDES 8.6 MG TAB PO PRN (23:00)
[2017-10-20] MEDS ORDERED: DEXTROSE 50% IN WATER 50 ML VIAL(D50) IV PUSH PRN (23:00)
[2017-10-20] MEDS ORDERED: NALOXONE HCL 0.4 MG/ML AMP IV PUSH PRN (23:00)
[2017-10-20] MEDS ORDERED: ACETAMINOPHEN 325 MG TAB PO PRN (23:00)
[2017-10-20] MEDS ORDERED: ONDANSETRON HCL 4 MG/2 ML VIAL IVP PRN (23:00)
[2017-10-20] MEDS ORDERED: MORPHINE SULFATE 2 MG/ML INJ IV PUSH PRN (23:00)
--- NOTE | 2017-10-20 23:03 | HHI.HP ---
[facility] Admission Diagnosis right hip fracture Diagnoses: Travel History International Travel<30 Days: No Contact w/Intl Traveler <30 Da: No Traveled to Known Affected Are: No History of Present Illness 87-year-old male with past medical history significant for diabetes mellitus presents to the emergency department for evaluation of right hip pain. Approximately 3 weeks ago, the patient was working in his yard with a wheelbarrow when he tripped and fell onto his right side. The patient reports that he has been able to ambulate however only with a 4 wheeled walker. He complains of significant pain in his right hip when going from sitting to standing or standing to sitting. Denies chest pain or shortness of breath. No nausea/vomiting/diarrhea. Review of Systems Except as stated in HPI: all other systems reviewed are Neg Past Family Social History Past Medical History Diabetes mellitus Past Surgical History Hernia repair 2 Reported Medications Reported Meds & Active Scripts Active Reported Novolin R Inj (Insulin Human Regular) 1,000 Unit/10 Ml Vial 7 Units SQ BID Metformin (Metformin HCl) 500 Mg Tab 1,000 Mg PO BID With meals Glimepiride 4 Mg Tab 4 Mg PO BIDAC Allergies: Coded Allergies: No Known Allergies (Verified Adverse Reaction, Unknown, 10/20/17) Family History Father with coronary artery disease Social History Denies tobacco. Occasional alcohol. Denies illicit drugs. Physical Exam Vital Signs Vital Signs Date Time Temp Pulse Resp B/P (MAP) Pulse Ox O2 Delivery O2 Flow Rate FiO2 10/20/17 22:05 98 Room Air 10/20/17 22:04 68 16 158/84 (108) 98 Room Air 10/20/17 20:21 16 10/20/17 20:02 97.8 81 16 189/85 (119) 99 Physical Exam GENERAL: male lying in bed SKIN: No rashes, ecchymoses or lesions. Cool and dry. HEAD: Atraumatic. Normocephalic. No temporal or scalp tenderness. EYES: Pupils equal round and reactive. Extraocular motions intact. No scleral icterus. No injection or drainage. ENT: Nose without bleeding, purulent drainage or septal hematoma. Throat without erythema, tonsillar hypertrophy or exudate. Uvula midline. Airway patent. NECK: Trachea midline. No JVD or lymphadenopathy. Supple, nontender, no meningeal signs. CARDIOVASCULAR: Regular rate and rhythm without murmurs, gallops, or rubs. RESPIRATORY: Clear to auscultation. Breath sounds equal bilaterally. No wheezes , rales, or rhonchi. GASTROINTESTINAL: Abdomen soft, non-tender, nondistended. No hepato-splenomegaly , or palpable masses. No guarding. MUSCULOSKELETAL: Extremities without clubbing, cyanosis, or edema. No calf tenderness. Right lower extremity bent at the knee and externally rotated. Neurovascularly intact. NEUROLOGICAL: Awake and alert. Cranial nerves II through XII intact. Motor and sensory grossly within normal limits. Five out of 5 muscle strength in all muscle groups. Normal speech. Laboratory Laboratory Tests Test 10/20/17 20:55 White Blood Count 13.4 Red Blood Count 4.08 Hemoglobin 12.2 Hematocrit 36.4 Mean Corpuscular Volume 89.3 Mean Corpuscular Hemoglobin 29.8 Mean Corpuscular Hemoglobin Concent 33.4 Red Cell Distribution Width 13.3 Platelet Count 228 Mean Platelet Volume 9.8 Neutrophils (%) (Auto) 84.3 Lymphocytes (%) (Auto) 9.3 Monocytes (%) (Auto) 5.4 Eosinophils (%) (Auto) 0.3 Basophils (%) (Auto) 0.7 Neutrophils # (Auto) 11.3 Lymphocytes # (Auto) 1.2 Monocytes # (Auto) 0.7 Eosinophils # (Auto) 0.0 Basophils # (Auto) 0.1 CBC Comment DIFF FINAL Differential Comment Prothrombin Time 10.7 Prothromb Time International Ratio 1.1 Activated Partial Thromboplast Time 24.5 Blood Urea Nitrogen 51 Creatinine 1.65 Random Glucose 319 Total Protein 7.3 Albumin 3.3 Calcium Level 9.3 Magnesium Level 2.3 Alkaline Phosphatase 77 Aspartate Amino Transf (AST/SGOT) 23 Alanine Aminotransferase (ALT/SGPT) 25 Total Bilirubin 0.6 Sodium Level 134 Potassium Level 4.3 Chloride Level 97 Carbon Dioxide Level 29.3 Anion Gap 8 Estimat Glomerular Filtration Rate 40 Result Diagram: 10/20/17205410/20/172054 Caprini VTE Risk Assessment Caprini VTE Risk Assessment: Mod/High Risk (score >= 2) Caprini Risk Assessment Model Point Value = 1 Point Value = 2 Point Value = 3 Point Value = 5 Age 41-60 Minor surgery BMI > 25 kg/m2 Swollen legs Varicose veins or History of unexplained or recurrent spontaneous Oral contraceptives or hormone replacement Sepsis (< 1 month) Serious lung disease, including pneumonia (< 1 month) Abnormal pulmonary function Acute myocardial infarction Congestive heart failure (< 1 month) History of inflammatory bowel disease Medical patient at bed rest Age 61-74 Arthroscopic surgery Major open surgery (> 45 min) Laparoscopic surgery (> 45 min) Malignancy Confined to bed (> 72 hours) Immobilizing plaster cast Central venous access Age >= 75 History of VTE Family history of VTE Factor V Leiden Prothrombin [id number] Lupus anticoagulant Anticardiolipin antibodies Elevated serum homocysteine Heparin-induced thrombocytopenia Other congenital or acquired thrombophilia Stroke (< 1 month) Elective arthroplasty Hip, pelvis, or leg fracture Acute spinal cord injury (< 1 month) Prophylaxis Regimen Total Risk Factor Score Risk Level Prophylaxis Regimen 0-1 Low Early ambulation 2 Moderate Order ONE of the following: *Sequential Compression Device (SCD) *Heparin 5000 units SQ BID 3-4 Higher Order ONE of the following medications: *Heparin 5000 units SQ TID *Enoxaparin/Lovenox 40 mg SQ daily (WT < 150 kg, CrCl > 30 mL/min) *Enoxaparin/Lovenox 30 mg SQ daily (WT < 150 kg, CrCl > 10-29 mL/min) *Enoxaparin/Lovenox 30 mg SQ BID (WT < 150 kg, CrCl > 30 mL/min) AND/OR *Sequential Compression Device (SCD) 5 or more Highest Order ONE of the following medications: *Heparin 5000 units SQ TID (Preferred with Epidurals) *Enoxaparin/Lovenox 40 mg SQ daily (WT < 150 kg, CrCl > 30 mL/min) *Enoxaparin/Lovenox 30 mg SQ daily (WT < 150 kg, CrCl > 10-29 mL/min) *Enoxaparin/Lovenox 30 mg SQ BID (WT < 150 kg, CrCl > 30 mL/min) AND *Sequential Compression Device (SCD) Assessment and Plan Assessment and Plan Assessment/plan: 1. Right femoral neck fracture Hip x-ray significant for subcapital right femoral neck fracture Orthopedic surgery consulted, appreciate assistance Morphine for pain 2. Diabetes mellitus Holding home oral anti-hyperglycemics Sinus scale insulin Monitor blood glucose 3. Chronic kidney disease Creatinine 1.65, at baseline Monitor renal function FEN Nothing by mouth NS at 75 cc/hour Electrolytes: Monitor and replete when necessary Holding pharmacologic anticoagulation in anticipation of operative intervention Physician Certification 2 Midnight Certification Type: Admission for Inpatient Services Order for Inpatient Services The services are ordered in accordance with Medicare regulations or non- Medicare payer requirements, as applicable. In the case of services not specified as inpatient-only, they are appropriately provided as inpatient services in accordance with the 2-midnight benchmark. Estimated LOS (days): 2 2 days is the estimated time the patient will need to remain in the hospital, assuming treatment plan goals are met and no additional complications. Post-Hospital Plan: Not yet determined Tracee Wu MD Oct 20, 2017 23:02
[2017-10-20] MEDS ORDERED: POVIDONE IODINE 5% (ANTISEPSIS KIT) 4 APPLICATIONS EACH NARE PRN (23:45)
[2017-10-20] MEDS ORDERED: CHLORHEXIDINE GLUCONATE 2 % 1 PACK (2 CLOTHS) TOPICAL PRN (23:45)
[2017-10-20] MEDS ORDERED: LACTATED RINGER'S 1000 ML IV PRN (23:45)
[2017-10-20] MEDS ORDERED: METOPROLOL TARTRATE 25 MG TAB PO PRN (23:45)
[2017-10-21] VITALS: BP 131/66; PULSE 71; RESP 15; TEMP 97.2; O2SAT 98
[2017-10-21] MEDS: SODIUM CHLOR 0.9% 1000 ML INJ 1,000 ML IV SCH ×3 (00:11→22:12)
[2017-10-21 04:00] VITALS: BP 134/65; PULSE 66; RESP 15; TEMP 98.2; O2SAT 97
[2017-10-21 06:14] LABS: AUTOMATED NEUTROPHIL # 7.1 TH/MM3 (1.8-7.7); BASOPHIL # 0.1 TH/MM3 (0-0.2); BASOPHIL % 0.7 % (0.0-2.0); EOSINOPHIL # 0.1 TH/MM3 (0-0.4); EOSINOPHIL % 0.9 % (0.0-4.0); HEMATOCRIT 34.9 % (39.0-51.0); HEMOGLOBIN 11.9 GM/DL (13.0-17.0); LYMPH % 16.1 % (9.0-44.0); LYMPHOCYTE # 1.5 TH/MM3 (1.0-4.8); MEAN CELL VOLUME 89.5 FL (80.0-100.0); MEAN CORPUSCULAR HEMOGLOBIN 30.6 PG (27.0-34.0); MEAN CORPUSCULAR HGB CONC 34.2 % (32.0-36.0); MEAN PLATELET VOLUME 9.3 FL (7.0-11.0); MONO % 6.3 % (0.0-8.0); MONOCYTE # 0.6 TH/MM3 (0-0.9); PLATELET COUNT 209 TH/MM3 (150-450); RED CELL DISTRIBUTION WIDTH 13.1 % (11.6-17.2); WHITE BLOOD COUNT 9.4 TH/MM3 (4.0-11.0)
[2017-10-21 06:32] LABS: BICARBONATE 27.1 MEQ/L (21.0-32.0); CREATININE 1.39 MG/DL (0.60-1.30)
--- NOTE | 2017-10-21 06:36 | PD.ORT.PN ---
Subjective Subjective Remarks Fall at home at driveway. right hip pain and was unable to ambulate Objective Vitals Vital Signs Date Time Temp Pulse Resp B/P (MAP) Pulse Ox O2 Delivery O2 Flow Rate FiO2 10/21/17 00:00 97.2 71 15 131/66 (87) 98 10/20/17 23:16 10/20/17 22:05 98 Room Air 10/20/17 22:04 68 16 158/84 (108) 98 Room Air 10/20/17 20:21 16 10/20/17 20:02 97.8 81 16 189/85 (119) 99 Result Diagram: 10/21/17 0530 10/21/17 0530 Other Results Laboratory Tests Test 10/20/17 20:55 Prothromb Time International Ratio 1.1 RATIO Prothrombin Time 10.7 SEC (9.8-11.6) Imaging Last 24 hours Impressions Chest X-Ray 10/20/172026 Signed Impressions: Service Date/Time: September 20:25 - CONCLUSION: 1. No acute abnormality or significant interval change. Abhinav Diaz MD Objective Remarks Right upper extremity slight tenderness with motion of right shoulder. Skin is intact. No pain with elbow or wrist range of motion. Distally intact sensation good capillary refills. left upper extremity full range of motion neurovascularly intact Left lower extremity: Full range of motion and neurovascularly intact Right lower extremity: Pain to palpation of hip and movement of hip. No pain at knee or ankle. Distally intact sensation good capillary refills. Assessment & Plan Assessment and Plan Right femoral neck fracture Surgical intervention is discussed and understands that a right hip hemiarthroplasty is most appropriate. We will plan for surgery this morning. Nothing by mouth Sign consents Shahid Crump Jr. Oct 21, 2017 06:36
[2017-10-21] MEDS ORDERED: INSULIN HUMAN REGULAR 1,000 UNITS/10 ML VIAL ONE (07:24)
[2017-10-21] MEDS ORDERED: SODIUM CHLORIDE 0.9% IV SCH (07:30)
[2017-10-21] MEDS ORDERED: TRANEXAMIC ACID IV SCH (07:30)
[2017-10-21] MEDS ORDERED: ceFAZolin 2 GM PREMIX 0 ML ONE (07:31)
[2017-10-21] MEDS ORDERED: ceFAZolin INJ 1,000 MG VIAL ONE (07:43)
[2017-10-21] MEDS: INSULIN ASPART SUPPLEMENTAL SCALE SQ SCH ×4 (08:00→21:00)
[2017-10-21] MEDS ORDERED: NORC5TAB PO (08:54)
--- NOTE | 2017-10-21 08:54 | PD.OP ---
cc: Alejandro Hudson MD Operative Report Date of Surgery: Oct 21, 2017 Preoperative Diagnosis: Displaced right femoral neck fracture Postoperative Diagnosis: Procedure: Right hip hemiarthroplasty Anesthesia: Gen. Surgeon: Alejandro Hudson Shift Superintendent Caustic Cresylate(s): ENDER Garces PA-C The surgical procedure was assisted by my physician assistant passenger locomotive engineer. My P.A. presence was necessary throughout this case for the manipulation and positioning of the surgical extremity. My P.A. was assisting me throughout the duration of this procedure. The skill set of a physician assistant passenger locomotive engineer was medically necessary to complete this procedure. During the surgical case the certified surgical tech/first assistant was working at the back table and the physician assistant passenger locomotive engineer was directly assisting me. Operation and Findings: PLAN OF ACTIVITY Weight bear as tolerated. IMPLANTS USED DePuy Corail size [15] stem with size [56] bipolar head and [+1 standard] neck. DETAILS OF PROCEDURE This patient was brought into the operating room and placed on the OR table. The patient was given anesthesia. The patient received IV antibiotics. The patient was then placed in lateral decubitus position. The hip and leg were prepped with alcohol, followed by Hibiclens and draped in a usual sterile fashion. Clean air was used for this procedure. Time out procedure was performed. The procedure began with a 5 inch incision over the posterolateral hip. The subcutaneous tissue was dissected with the Bovie. The iliotibial band were split in line with fibers. The Charnley retractor was placed. The piriformis and external rotators were released from the femur and tagged with a #1 Vicryl suture. The capsule is now incised and tagged with #1 Vicryl. The femoral neck fracture was now visualized. A corkscrew was now used to remove the femoral head. The femoral head was sized and measured. Soft tissue was now protected. The hip skid was placed underneath the femoral neck. An oscillating saw was used to make a femoral neck cut. At this point attention was turned to preparation of the proximal femur. A box osteotome was used to remove the lateral cortex of the femoral neck. The T- handle reamer was used to open the femoral canal. Next, the canal was broached. A lateralizing reamer was used to help lateralize the prosthesis. At this point a trial head and neck were placed. The hip was reduced. The patient was found to have excellent stability with good range of motion. Trial components were removed. Soft tissue and bone were thoroughly irrigated. A Corail stem was now opened. The stem was now impacted into the proximal femur. Care was taken to keep appropriate anteversion. The head and neck were now impacted onto the stem. The hip was again reduced. The hip was found to have good range of motion and good stability. Leg lengths were clinically equal. The wound was thoroughly irrigated. The capsule, piriformis and iliotibial band were closed with #1 Vicryl. Subcutaneous tissue was closed with 3-0 Vicryl. The skin was closed with wen. A sterile dressing was applied with Primapore. The patient was placed into a knee immobilizer. The patient was awakened and transferred to the recovery room in stable condition. Needle and sponge counts were correct. Alejandro Hudson MD Oct 21, 2017 08:54
[2017-10-21] MEDS ORDERED: MORPHINE SULFATE 4 MG/ML INJ IV PUSH PRN (09:00)
[2017-10-21] MEDS ORDERED: Post-op Orders (for Pharmacy) XX ONE (09:00)
[2017-10-21] MEDS ORDERED: CHOLECALCIFEROL (VIT D3) 5000 UNIT CAP PO SCH (09:00)
[2017-10-21] MEDS ORDERED: ERGOCALCIFEROL (VIT D2) 50,000 UNIT CAP PO ONE (09:15)
[2017-10-21] MEDS ORDERED: DO NOT ADM ANY ANTICOAGULANT DRUGS PRN (09:15)
[2017-10-21] MEDS ORDERED: WALKER/ADULT/FO1 MIS (09:16)
[2017-10-21] MEDS ORDERED: CALCTAB19 PO (09:16)
[2017-10-21] MEDS ORDERED: XARE10TA PO (09:16)
[2017-10-21] MEDS ORDERED: VITA500012 PO (09:16)
--- NOTE | 2017-10-21 09:21 | PD.ORT.PN ---
Subjective Subjective Remarks As for the PACU in stable condition Objective Vitals Vital Signs Date Time Temp Pulse Resp B/P (MAP) Pulse Ox O2 Delivery O2 Flow Rate FiO2 10/21/17 04:00 98.2 66 15 134/65 (88) 97 10/21/17 00:00 97.2 71 15 131/66 (87) 98 10/20/17 23:16 10/20/17 22:05 98 Room Air 10/20/17 22:04 68 16 158/84 (108) 98 Room Air 10/20/17 20:21 16 10/20/17 20:02 97.8 81 16 189/85 (119) 99 I/O 10/20/17 10/20/17 10/20/17 10/21/17 10/21/17 10/21/17 07:00 15:00 23:00 07:00 15:00 23:00 Intake Total 300 ml 600 ml Output Total 250 ml Balance 300 ml 350 ml Intake Oral 300 ml IV Total 600 ml Output Estimated Blood Loss 250 ml Result Diagram: 10/21/17 0530 10/21/17 0530 Other Results Laboratory Tests Test 10/20/17 20:55 Prothromb Time International Ratio 1.1 RATIO Prothrombin Time 10.7 SEC (9.8-11.6) Imaging Last 24 hours Impressions Chest X-Ray 10/20/172026 Signed Impressions: Service Date/Time: September 20:25 - CONCLUSION: 1. No acute abnormality or significant interval change. Abhinav Diaz MD Objective Remarks Right upper extremity slight tenderness with motion of right shoulder. Skin is intact. No pain with elbow or wrist range of motion. Distally intact sensation good capillary refills. left upper extremity full range of motion neurovascularly intact Left lower extremity: Full range of motion and neurovascularly intact Right lower extremity: Clean dry dressings intact. Knee immobilizer in place. Distally intact sensation and good capillary refills Assessment & Plan Assessment and Plan Right hip hemiarthroplasty POD 0 Weightbearing as tolerated with posterior hip precautions Knee immobilizer while in bed Begin daily dressing changes beginning POD 2 with dry dressings of Primapore. Beginning 10/31/2017 begin adding bacitracin over incision with Primapore Incentive spirometry Lovenox Discharge to rehabilitation Tuesday or Tuesday Follow-up Dr. Hudson or PA in 2 weeks Shahid Crump Jr. BRAVO Oct 21, 2017 09:21
[2017-10-21] MEDS ORDERED: VANCOMYCIN HCL 1000 MG VIAL ONE (09:30)
[2017-10-21] MEDS ORDERED: GENTAMICIN SULFATE 80 MG/2 ML VIAL ONE (09:30)
[2017-10-21] MEDS ORDERED: *morphine SULFATE 10 MG/ML PERIprocedure ONLY ONE (09:34)
--- NOTE | 2017-10-21 10:11 | RADRPT ---
EXAM DATE/TIME: 10/21/2017 09:24 [place] COMPARISON: HIP RIGHT (AP&LAT 2/3VWS) W AP PELVIS, October 20, 2017, 20:25. INDICATIONS : Post op right hip surgery MEDICAL HISTORY : None. SURGICAL HISTORY : None. ENCOUNTER: Initial ACUITY: 1 day PAIN SCORE: Non-responsive. LOCATION: Right hip and pelvis FINDINGS: 5 images of the right hip are performed after right noncemented unipolar total hip arthroplasty. The alignment of the osseous structures is anatomic. Lucency between the medial femoral component and b one measures 5 mm in thickness. Multiple skin wen and deep soft tissue gas is present. The bony pelvic ring is grossly intact. Vascular calcification in the proximal thighs. CONCLUSION: 1. Expected postsurgical changes right total hip arthroplasty. 2. Please note that there is a 5 mm lucency at the interface between the proximal medial femoral shaf t component and bone; this configuration can serve as a baseline. Tristan Figueroa MD on October 21, 2017 at 10:07 Board Certified Radiologist. This report was verified electronically.
[2017-10-21 11:35] VITALS: BP 119/57; PULSE 58; RESP 19; TEMP 95.6; O2SAT 100
[2017-10-21] MEDS: SODIUM CHLORIDE 0.9% FLUSH 10 ML FLUSH IV FLUSH SCH ×2 (11:39→22:12)
[2017-10-21] MEDS: DOCUSATE SODIUM 50 MG/SENNA 8.6 MG TAB PO SCH ×2 (11:40→22:11)
[2017-10-21] MEDS: ACETAMINOPHEN/HYDROcodone 325 MG/5 MG TAB PO PRN (11:44)
[2017-10-21] MEDS ORDERED: LIDOCAINE HCL 1% PF 5 ML SYRINGE OTHER ONE (12:00)
[2017-10-21] MEDS ORDERED: ONDANSETRON HCL 4 MG/2 ML VIAL IV PUSH ONE (12:00)
[2017-10-21] MEDS ORDERED: PHENYLEPH/NS 1000 MCG/10 ML SYR IV ONE (12:00)
[2017-10-21] MEDS ORDERED: PROPOFOL 200 MG/20 ML AMP IV ONE (12:00)
[2017-10-21] MEDS ORDERED: NEOSTIGMINE 5 MG/5 ML SYRINGE IV PUSH ONE (12:00)
[2017-10-21] MEDS ORDERED: GLYCOPYRROLATE 1 MG/5 ML SYRINGE IV PUSH ONE (12:00)
[2017-10-21] MEDS ORDERED: ROCURONIUM INJ 50 MG/5 ML SYRINGE IV PUSH ONE (12:00)
[2017-10-21] MEDS ORDERED: ePHEDrine/NS 25 MG/5 ML SYRINGE IV ONE (12:00)
--- NOTE | 2017-10-21 13:26 | MB ---
cc: BANDAR SANTIAGO DATE OF CONSULTATION: 10/20/2017 REASON FOR CONSULTATION: A right femoral neck fracture. CONSULTING PHYSICIAN Dr. Cueto. HISTORY Farhad is an 87-year-old male who is relatively healthy. He does have diabetes. He states he fell approximately 3 weeks ago. He has had persistent right hip pain since that time. He has only been able to ambulate with a walker. He has pain with moving his hip. He has pain with putting weight on his leg. He presented emergency room where x-rays revealed a partially displaced right femoral neck fracture. He is currently awake and the orthopedic floor. His only complaint is his right hip. He denies dizziness, syncope or loss of consciousness. PAST MEDICAL HISTORY Illnesses diabetes, hernia repair. MEDICATIONS: insulin, metformin, glimepiride. ALLERGIES NO KNOWN DRUG ALLERGIES. FAMILY HISTORY: Family history is positive for coronary artery disease in father. SOCIAL HISTORY The patient lives at home independently. He denies alcohol. He denies tobacco or drug use. He rarely drinks alcohol. REVIEW OF SYSTEMS The patient denies headache, visual changes, neck pain, chest pain, shortness of breath, abdominal pain, nausea or recent weight loss, fevers or chills, numbness of extremities or bowel, bladder incontinence. Today he complains of the right hip pain. PHYSICAL EXAMINATION IN GENERAL: The patient is a pleasant 87-year-old male. He is awake and alert. He is alert and x3. He appears well-developed, well-nourished. He is in no acute distress. VITAL SIGNS: Temperature 98.2, pulse 66, respirations 15, blood pressure 134/65, O2 sat 97% on room air. HEAD, EYES, EARS, NOSE, AND THROAT: Head: The patient is normocephalic. Pupils are equal. NECK: Soft, nontender. Trachea is midline. ABDOMEN: Soft, nontender, nondistended. EXTREMITIES: Examination of bilateral upper extremities reveals no pain with shoulder, elbow or wrist motion. He has intact sensation in all fingers. He has good cap refill fingers. Skin is intact in both hands. Radial pulses are palpable. Examination of left leg reveals no pain with hip, knee or ankle motion. Skin is intact. Dorsalis pedis pulses palpable. Sensation is intact. Examination of right leg reveals pain with any hip motion. Skin is intact. Calf and thigh compartments are soft. He has no pain with knee or ankle motion. Dorsalis pedis pulses palpable. Sensation is intact in both feet. X-RAYS X-rays of right hip were reviewed x-rays reveal a moderately displaced right femoral neck fracture.. IMPRESSION 1. Diabetes 2. Right femoral neck fracture. PLAN Treatment option discussed with the patient. I discussed both reduction and pinning as well as right hip hemiarthroplasty. The fracture site is relatively vertical and there is mild to moderate displacement of the fracture. At this point I feel that hemiarthroplasty would give him a quick return to function empirically for return to walking as well as overall better functional outcome. The patient states that he would like to return activities as possible. He prefers proceed prefer to proceed with hemiarthroplasty. Risks of surgery include bleeding, infection, injury to blood vessels, hip dislocation of leg length discrepancies as well as medical complications including blood clot, stroke, heart attack and . All questions were answered. I will plan on surgery today. At my new patient PA follow up in point in O2 structures follow up above assessment and had a section of LABORATORY DATA The patient is a white blood cell count 9.4, hemoglobin 11.9, hematocrit of 34.9. INR is 1.1. BUN is 45 and creatinine is 1.39. MD VALENTE Jaeger/silvia /7:39 AM /12:43 PM
[2017-10-21 14:00] VITALS: BP 116/62; PULSE 67; RESP 19; TEMP 96.9; O2SAT 100
[2017-10-21] MEDS: ceFAZolin 2 GM PREMIX 50 ML IV SCH ×2 (14:00→22:13)
--- NOTE | 2017-10-21 16:37 | EKG ---
Date Performed: 10/21/2017 Time Performed: 00:10:40 PTAGE: 87 years EKG: Sinus rhythm with PAC(s). Borderline ECG PREVIOUS TRACING : 11/03/2016 23.34 No significant change from previous tracing noted. DOCTOR: Eduardo Bolden Interpretating Date/Time 10/21/2017 16:35:32
--- NOTE | 2017-10-21 20:13 | HHI.PR ---
Subjective Remarks Patient states pain is controlled. Denies cp/sob. Afebrile. WBC and creatinine trending down. Objective Vitals Vital Signs Date Time Temp Pulse Resp B/P (MAP) Pulse Ox O2 Delivery O2 Flow Rate FiO2 10/21/17 19:21 Room Air 10/21/17 14:00 96.9 67 19 116/62 (80) 100 10/21/17 11:35 95.6 58 19 119/57 (77) 100 10/21/17 10:00 54 12 130/63 (85) 100 Nasal Cannula 2 10/21/17 09:45 57 20 137/70 (92) 100 Nasal Cannula 2 10/21/17 09:30 59 19 148/72 (97) 100 Nasal Cannula 3 10/21/17 09:12 98.0 69 20 185/83 (117) 99 Nasal Cannula 3 10/21/17 04:00 98.2 66 15 134/65 (88) 97 10/21/17 00:00 97.2 71 15 131/66 (87) 98 10/20/17 23:16 10/20/17 22:05 98 Room Air 10/20/17 22:04 68 16 158/84 (108) 98 Room Air 10/20/17 20:21 16 I/O 10/20/17 10/20/17 10/20/17 10/21/17 10/21/17 10/21/17 06:59 14:59 22:59 06:59 14:59 22:59 Intake Total 300 ml 900 ml Output Total 1000 ml Balance 300 ml -100 ml Intake Oral 300 ml 300 ml IV Total 600 ml Output Urine Total 750 ml Estimated Blood Loss 250 ml # Voids 1 # Bowel Movements 0 Result Diagram: 10/21/17 0530 10/21/17 0530 Imaging Last Impressions Hip and Pelvis X-Ray 10/21/17 0851 Signed Impressions: Service Date/Time: Saturday, October 21, 2017 09:24 - CONCLUSION: 1. Expected postsurgical changes right total hip arthroplasty. 2. Please note that there is a 5 mm lucency at the interface between the proximal medial femoral shaft component and bone; this configuration can serve as a baseline. Tristan Figueroa MD Chest X-Ray 10/20/172026 Signed Impressions: Service Date/Time: September 20:25 - CONCLUSION: 1. No acute abnormality or significant interval change. Abhinav Diaz MD Objective Remarks GENERAL: male lying in bed SKIN: No rashes, ecchymoses or lesions. Cool and dry. HEAD: Atraumatic. Normocephalic. No temporal or scalp tenderness. EYES: Pupils equal round and reactive. Extraocular motions intact. No scleral icterus. No injection or drainage. ENT: Nose without bleeding, purulent drainage or septal hematoma. Throat without erythema, tonsillar hypertrophy or exudate. Uvula midline. Airway patent. NECK: Trachea midline. No JVD or lymphadenopathy. Supple, nontender, no meningeal signs. CARDIOVASCULAR: Regular rate and rhythm without murmurs, gallops, or rubs. RESPIRATORY: Clear to auscultation. Breath sounds equal bilaterally. No wheezes , rales, or rhonchi. GASTROINTESTINAL: Abdomen soft, non-tender, nondistended. No hepato-splenomegaly , or palpable masses. No guarding. MUSCULOSKELETAL: Extremities without clubbing, cyanosis, or edema. No calf tenderness. Neurovascularly intact. Postsurgical site C/D/I. No hematoma observed NEUROLOGICAL: Awake and alert. Cranial nerves II through XII intact. Motor and sensory grossly within normal limits. Five out of 5 muscle strength in all muscle groups. Normal speech. Medications and IVs Current Medications Medications (Trade) Dose Ordered Sig/Kristen Route Start Time Stop Time Status Last Admin Sodium Chloride 1,000 ml @ 75 mls/hr [id number] IV 10/20/17 22:51 10/21/17 11:43 (NS Flush) 2 ml UNSCH PRN IV FLUSH 10/20/17 23:00 (NS Flush) 2 ml BID IV FLUSH 10/21/17 09:00 10/21/17 11:39 (Tylenol) 650 mg Q4H PRN PO 10/20/17 23:00 (Zofran Inj) 4 mg Q6H PRN IVP 10/20/17 23:00 (Narcan Inj) 0.4 mg UNSCH PRN IV PUSH 10/20/17 23:00 (Jerri-Colace) 1 tab BID PO 10/21/17 09:00 10/21/17 11:40 (Milk Of Magnesia Liq) 30 ml Q12H PRN PO 10/20/17 23:00 (Senokot) 17.2 mg Q12H PRN PO 10/20/17 23:00 (Dulcolax Supp) 10 mg DAILY PRN RECTAL 10/20/17 23:00 (Lactulose Liq) 30 ml DAILY PRN PO 10/20/17 23:00 (Morphine Inj) 2 mg Q3H PRN IV PUSH 10/20/17 23:00 10/20/17 23:53 (D50w (Vial) Inj) 50 ml UNSCH PRN IV PUSH 10/20/17 23:00 (Glucagon Inj) 1 mg UNSCH PRN OTHER 10/20/17 23:00 (NovoLOG SUPPLEMENTAL SCALE) 1 ACHS SLIDING SCALE SQ 10/21/17 08:00 10/21/17 18:39 Lactated Ringer's 1,000 ml @ 30 mls/hr Q24H PRN IV 10/20/17 23:45 10/23/17 23:44 10/21/17 06:59 (Lopressor) 25 mg TECHNICIAN TERMINAL AND REPEATER PRN PO 10/20/17 23:45 10/23/17 23:44 (Betadine 5% Antisepsis Kit) 1 applic TECHNICIAN TERMINAL AND REPEATER PRN EACH NARE 10/20/17 23:45 10/23/17 23:44 (Chlorhexidine 2% Cloth) 3 pack TECHNICIAN TERMINAL AND REPEATER PRN TOPICAL 10/20/17 23:45 10/23/17 23:44 Cefazolin Sodium/ Dextrose 50 ml @ 100 mls/hr Q6H IV 10/21/17 14:00 10/22/17 02:29 10/21/17 14:00 (Lovenox Inj) 30 mg Q24H SQ 10/22/17 08:00 ([place] 5-325 Mg) 1 tab Q3H PRN PO 10/21/17 09:00 10/21/17 11:44 (Morphine Inj) 3 mg Q3H PRN IV PUSH 10/21/17 09:00 (Vitamin D3) 5,000 units DAILY PO 10/22/17 09:00 Miscellaneous Information ALL NURSING DEPARTME... UNSCH PRN .XX 10/21/17 09:15 10/22/17 09:14 A/P Problem List: (1) Diabetes mellitus with hyperglycemia ICD Code: E11.65 - Type 2 diabetes mellitus with hyperglycemia (2) Hip fracture, right ICD Code: S72.001A - Fracture of unspecified part of neck of right femur, initial encounter for closed fracture Status: Acute (3) FARZANEH (acute kidney injury) ICD Code: N17.9 - Acute kidney failure, unspecified Status: Acute Assessment and Plan Assessment/plan: 1. Right femoral neck fracture Hip x-ray significant for subcapital right femoral neck fracture Orthopedic surgery consulted, appreciate assistance Morphine for pain 10/21 the patient is status post right hip hemiarthroplasty. Continue pain control as per orthopedic surgery. Weightbearing as tolerated. 2. Diabetes mellitus Holding home oral anti-hyperglycemics Sinus scale insulin Monitor blood glucose 10/21 blood sugar is severely elevated in the 300s. Start the patient on basal bolus therapy with insulin Levemir and prandial insulin NovoLog. Check hemoglobin A1c. 3. Acute kidney injury on chronic kidney disease As per review of records creatinine 1.50 in 2017. Back in 2012 patient had a normal creatinine of 0.8. Suspect there is some degree of acute kidney injury which is improving since creatinine trended down from 1.65-1.39. Continue to monitor BMP, STI's and O's and avoid nephrotoxins. Continue IV fluids. FEN Nothing by mouth NS at 75 cc/hour Electrolytes: Monitor and replete when necessary Lovenox subcu as per orthopedic surgery for DVT prophylaxis. Discharge Planning Discharge planning pending orthopedic surgery clearance and stabilization of blood sugars. Problem Qualifiers (1) Diabetes mellitus with hyperglycemia: Qualified Codes: E11.65 - Type 2 diabetes mellitus with hyperglycemia; Z79.4 - prison (current) use of insulin (2) Hip fracture, right: Qualified Codes: S72.001A - Fracture of unspecified part of neck of right femur , initial encounter for closed fracture Rosendo Yañez MD Oct 21, 2017 20:13
[2017-10-21 20:30] VITALS: BP 113/60; PULSE 93; RESP 18; TEMP 98.7; O2SAT 98
[2017-10-21] MEDS: INSULIN DETEMIR 100 UNITS/ML VIAL SQ SCH (22:11)
[2017-10-22] VITALS (7 sets, daily range): BP systolic 119–166; BP diastolic 61–77; PULSE 75–91; RESP 18–19; TEMP 97.6–100.8; O2SAT 94–100
[2017-10-22] MEDS: ACETAMINOPHEN/HYDROcodone 325 MG/5 MG TAB PO PRN ×3 (03:45→15:21)
[2017-10-22] MEDS: ceFAZolin 2 GM PREMIX 50 ML IV SCH (03:45)
[2017-10-22 06:06] LABS: AUTOMATED NEUTROPHIL # 12.4 TH/MM3 (1.8-7.7); BASOPHIL % 0.3 % (0.0-2.0); EOSINOPHIL % 0.1 % (0.0-4.0); HEMATOCRIT 34.6 % (39.0-51.0); HEMOGLOBIN 11.8 GM/DL (13.0-17.0); LYMPH % 4.7 % (9.0-44.0); LYMPHOCYTE # 0.7 TH/MM3 (1.0-4.8); MEAN CELL VOLUME 89.3 FL (80.0-100.0); MEAN CORPUSCULAR HEMOGLOBIN 30.6 PG (27.0-34.0); MEAN CORPUSCULAR HGB CONC 34.2 % (32.0-36.0); MEAN PLATELET VOLUME 9.6 FL (7.0-11.0); MONO % 6.3 % (0.0-8.0); MONOCYTE # 0.9 TH/MM3 (0-0.9); NEUT % 88.6 % (16.0-70.0); PLATELET COUNT 193 TH/MM3 (150-450); RED BLOOD COUNT 3.88 MIL/MM3 (4.50-5.90); RED CELL DISTRIBUTION WIDTH 13.1 % (11.6-17.2)
[2017-10-22 06:41] LABS: ALBUMIN 2.9 GM/DL (3.4-5.0); ALKALINE PHOSPHATASE 67 U/L (45-117); ALT (GPT) 23 U/L (12-78); AST (GOT) 29 U/L (15-37); BICARBONATE 27.1 MEQ/L (21.0-32.0); BLOOD UREA NITROGEN 28 MG/DL (7-18); CALCIUM 8.7 MG/DL (8.5-10.1); CHLORIDE 101 MEQ/L (98-107); CREATININE 1.22 MG/DL (0.60-1.30); GLOMERULAR FILTRATION RATE 56 ML/MIN (>89); GLUCOSE,RANDOM 208 MG/DL (74-106); MAGNESIUM 1.8 MG/DL (1.5-2.5); PHOSPHORUS 2.5 MG/DL (2.5-4.9); SODIUM (NA) 135 MEQ/L (136-145); TOTAL BILIRUBIN ADULT 0.5 MG/DL (0.2-1.0); TOTAL PROTEIN 6.5 GM/DL (6.4-8.2)
--- NOTE | 2017-10-22 07:04 | PD.ORT.PN ---
Subjective Post Op Day #: 1 Subjective Remarks Pt slightly confused, laying in bed comfortable with ice to right hip. Expresses interest in attempting walking today with PT. No other complaints. Objective Vitals Vital Signs Date Time Temp Pulse Resp B/P (MAP) Pulse Ox O2 Delivery O2 Flow Rate FiO2 10/22/17 03:45 100.8 86 19 166/70 (102) 99 10/22/17 00:05 100.1 91 19 138/69 (92) 100 10/21/17 20:30 98.7 93 18 113/60 (77) 98 10/21/17 19:21 Room Air 10/21/17 14:00 96.9 67 19 116/62 (80) 100 10/21/17 11:35 95.6 58 19 119/57 (77) 100 10/21/17 10:00 54 12 130/63 (85) 100 Nasal Cannula 2 10/21/17 09:45 57 20 137/70 (92) 100 Nasal Cannula 2 10/21/17 09:30 59 19 148/72 (97) 100 Nasal Cannula 3 10/21/17 09:12 98.0 69 20 185/83 (117) 99 Nasal Cannula 3 I/O 10/21/17 10/21/17 10/21/17 10/22/17 10/22/17 10/22/17 07:00 15:00 23:00 07:00 15:00 23:00 Intake Total 300 ml 900 ml 240 ml 2154 ml Output Total 1000 ml 0 ml 1250 ml Balance 300 ml -100 ml 240 ml 904 ml Intake Oral 300 ml 300 ml 240 ml 240 ml IV Total 600 ml 1914 ml Output Urine Total 750 ml 0 ml 1250 ml Estimated Blood Loss 250 ml # Voids 1 # Bowel Movements 0 0 0 Result Diagram: 10/22/17 0505 10/22/17 0505 Imaging Last 24 hours Impressions Chest X-Ray 10/20/172026 Signed Impressions: Service Date/Time: September 20:25 - CONCLUSION: 1. No acute abnormality or significant interval change. Abhinav Diaz MD Procedures Right hip hemiarthroplasty [place] 10/21/17 Objective Remarks Right upper extremity slight tenderness with motion of right shoulder. Skin is intact. No pain with elbow or wrist range of motion. Distally intact sensation good capillary refills. left upper extremity full range of motion neurovascularly intact Left lower extremity: Full range of motion and neurovascularly intact Right lower extremity: Clean dry dressings intact. Knee immobilizer in place. Distally intact sensation and good capillary refills Assessment & Plan Ortho Post Op Day #: 1 Problem List: (1) Hip fracture, right ICD Codes: S72.001A - Fracture of unspecified part of neck of right femur, initial encounter for closed fracture Status: Acute Qualifiers: Qualified Codes: S72.001A - Fracture of unspecified part of neck of right femur, initial encounter for closed fracture (2) FARZANEH (acute kidney injury) ICD Codes: N17.9 - Acute kidney failure, unspecified Status: Acute (3) Diabetes mellitus with hyperglycemia ICD Codes: E11.65 - Type 2 diabetes mellitus with hyperglycemia Qualifiers: Qualified Codes: E11.65 - Type 2 diabetes mellitus with hyperglycemia; 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 Beginning 10/31/2017 begin adding bacitracin over incision with Primapore Incentive spirometry Lovenox Discharge to rehabilitation Tuesday or Tuesday Follow-up Dr. [place] or [place] in 2 weeks Prisca Velez Oct 22, 2017 07:04
[2017-10-22] MEDS: INSULIN ASPART SUPPLEMENTAL SCALE SQ SCH ×4 (08:00→21:18)
[2017-10-22] MEDS: INSULIN ASPART 1,000 UNITS/10 ML VIAL SQ SCH ×3 (08:00→17:00)
[2017-10-22] MEDS: DOCUSATE SODIUM 50 MG/SENNA 8.6 MG TAB PO SCH ×2 (08:59→21:17)
[2017-10-22] MEDS: CHOLECALCIFEROL (VIT D3) 5000 UNIT CAP PO SCH (08:59)
[2017-10-22] MEDS: ENOXAPARIN SODIUM 30 MG/0.3 ML SYRINGE SQ SCH (08:59)
[2017-10-22] MEDS: SODIUM CHLORIDE 0.9% FLUSH 10 ML FLUSH IV FLUSH SCH ×2 (09:00→21:17)
[2017-10-22] MEDS: INSULIN DETEMIR 100 UNITS/ML VIAL SQ SCH ×2 (09:00→21:18)
[2017-10-22] MEDS: SODIUM CHLOR 0.9% 1000 ML INJ 1,000 ML IV SCH (14:51)
--- NOTE | 2017-10-22 18:04 | HHI.PR ---
Subjective Remarks Patient had a low-grade fever with a MAXIMUM TEMPERATURE of 100.8. WBC count also increased. Blood sugars are improving. Creatinine is trending down. Objective Vitals Vital Signs Date Time Temp Pulse Resp B/P (MAP) Pulse Ox O2 Delivery O2 Flow Rate FiO2 10/22/17 16:21 18 10/22/17 16:00 99.8 84 18 119/61 (80) 97 10/22/17 12:00 98.8 80 18 135/65 (88) 97 10/22/17 08:00 97.6 75 18 149/77 (101) 98 10/22/17 03:45 100.8 86 19 166/70 (102) 99 10/22/17 00:05 100.1 91 19 138/69 (92) 100 10/21/17 20:30 98.7 93 18 113/60 (77) 98 10/21/17 19:21 Room Air I/O 10/21/17 10/21/17 10/21/17 10/22/17 10/22/17 10/22/17 07:00 15:00 23:00 07:00 15:00 23:00 Intake Total 300 ml 900 ml 240 ml 2154 ml 600 ml Output Total 1000 ml 0 ml 1250 ml 550 ml Balance 300 ml -100 ml 240 ml 904 ml 50 ml Intake Oral 300 ml 300 ml 240 ml 240 ml 600 ml IV Total 600 ml 1914 ml Output Urine Total 750 ml 0 ml 1250 ml 550 ml Estimated Blood Loss 250 ml # Voids 1 # Bowel Movements 0 0 0 0 Result Diagram: 10/22/17 0505 10/22/17 0505 Imaging Last Impressions Hip and Pelvis X-Ray 10/21/17 0851 Signed Impressions: Service Date/Time: Saturday, October 21, 2017 09:24 - CONCLUSION: 1. Expected postsurgical changes right total hip arthroplasty. 2. Please note that there is a 5 mm lucency at the interface between the proximal medial femoral shaft component and bone; this configuration can serve as a baseline. Tristan Figueroa MD Chest X-Ray 10/20/172026 Signed Impressions: Service Date/Time: September 20:25 - CONCLUSION: 1. No acute abnormality or significant interval change. Abhinav Diaz MD Objective Remarks GENERAL: male lying in bed SKIN: No rashes, ecchymoses or lesions. Cool and dry. HEAD: Atraumatic. Normocephalic. No temporal or scalp tenderness. EYES: Pupils equal round and reactive. Extraocular motions intact. No scleral icterus. No injection or drainage. ENT: Nose without bleeding, purulent drainage or septal hematoma. Throat without erythema, tonsillar hypertrophy or exudate. Uvula midline. Airway patent. NECK: Trachea midline. No JVD or lymphadenopathy. Supple, nontender, no meningeal signs. CARDIOVASCULAR: Regular rate and rhythm without murmurs, gallops, or rubs. RESPIRATORY: Clear to auscultation. Breath sounds equal bilaterally. No wheezes , rales, or rhonchi. GASTROINTESTINAL: Abdomen soft, non-tender, nondistended. No hepato-splenomegaly , or palpable masses. No guarding. MUSCULOSKELETAL: Extremities without clubbing, cyanosis, or edema. No calf tenderness. Neurovascularly intact. Postsurgical site C/D/I. No hematoma observed NEUROLOGICAL: Awake and alert. Cranial nerves II through XII intact. Motor and sensory grossly within normal limits. Five out of 5 muscle strength in all muscle groups. Normal speech. Medications and IVs Current Medications Medications (Trade) Dose Ordered Sig/Kristen Route Start Time Stop Time Status Last Admin Sodium Chloride 1,000 ml @ 75 mls/hr [id number] IV 10/20/17 22:51 10/21/17 22:12 (NS Flush) 2 ml UNSCH PRN IV FLUSH 10/20/17 23:00 (NS Flush) 2 ml BID IV FLUSH 10/21/17 09:00 10/21/17 22:12 (Tylenol) 650 mg Q4H PRN PO 10/20/17 23:00 (Zofran Inj) 4 mg Q6H PRN IVP 10/20/17 23:00 (Narcan Inj) 0.4 mg UNSCH PRN IV PUSH 10/20/17 23:00 (Jerri-Colace) 1 tab BID PO 10/21/17 09:00 10/22/17 08:59 (Milk Of Magnesia Liq) 30 ml Q12H PRN PO 10/20/17 23:00 (Senokot) 17.2 mg Q12H PRN PO 10/20/17 23:00 (Dulcolax Supp) 10 mg DAILY PRN RECTAL 10/20/17 23:00 (Lactulose Liq) 30 ml DAILY PRN PO 10/20/17 23:00 (Morphine Inj) 2 mg Q3H PRN IV PUSH 10/20/17 23:00 10/20/17 23:53 (D50w (Vial) Inj) 50 ml UNSCH PRN IV PUSH 10/20/17 23:00 (Glucagon Inj) 1 mg UNSCH PRN OTHER 10/20/17 23:00 (NovoLOG SUPPLEMENTAL SCALE) 1 ACHS SLIDING SCALE SQ 10/21/17 08:00 10/22/17 17:00 Lactated Ringer's 1,000 ml @ 30 mls/hr Q24H PRN IV 10/20/17 23:45 10/23/17 23:44 10/21/17 06:59 (Lopressor) 25 mg INSTITUTE DIRECTOR PRN PO 10/20/17 23:45 10/23/17 23:44 (Betadine 5% Antisepsis Kit) 1 applic INSTITUTE DIRECTOR PRN EACH NARE 10/20/17 23:45 10/23/17 23:44 (Chlorhexidine 2% Cloth) 3 pack INSTITUTE DIRECTOR PRN TOPICAL 10/20/17 23:45 10/23/17 23:44 (Lovenox Inj) 30 mg Q24H SQ 10/22/17 08:00 10/22/17 08:59 ([place] 5-325 Mg) 1 tab Q3H PRN PO 10/21/17 09:00 10/22/17 15:21 (Morphine Inj) 3 mg Q3H PRN IV PUSH 10/21/17 09:00 (Vitamin D3) 5,000 units DAILY PO 10/22/17 09:00 10/22/17 08:59 (Levemir Inj) 8 units Q12HR SQ 10/21/17 21:00 10/22/17 09:00 (NovoLOG INJ) 5 units TIDAC SQ 10/22/17 08:00 10/22/17 17:00 A/P Problem List: (1) Diabetes mellitus with hyperglycemia ICD Code: E11.65 - Type 2 diabetes mellitus with hyperglycemia (2) Hip fracture, right ICD Code: S72.001A - Fracture of unspecified part of neck of right femur, initial encounter for closed fracture Status: Acute (3) FARZANEH (acute kidney injury) ICD Code: N17.9 - Acute kidney failure, unspecified Status: Acute Assessment and Plan Assessment/plan: 1. Right femoral neck fracture Hip x-ray significant for subcapital right femoral neck fracture Orthopedic surgery consulted, appreciate assistance Morphine for pain The patient is status post right hip hemiarthroplasty. Continue pain control as per orthopedic surgery. Weightbearing as tolerated. 2. Diabetes mellitus Holding home oral anti-hyperglycemics Sinus scale insulin Monitor blood glucose 10/21 blood sugar is severely elevated in the 300s. Start the patient on basal bolus therapy with insulin Levemir and prandial insulin NovoLog. Check hemoglobin A1c. 3. Acute kidney injury on chronic kidney disease As per review of records creatinine 1.50 in 2017. Back in 2012 patient had a normal creatinine of 0.8. Suspect there is some degree of acute kidney injury which is improving since creatinine trended down from 1.65-1.39. Continue to monitor BMP, STI's and O's and avoid nephrotoxins. Continue IV fluids. FEN Nothing by mouth NS at 75 cc/hour Electrolytes: Monitor and replete when necessary Lovenox subcu as per orthopedic surgery for DVT prophylaxis. Discharge Planning Discharge planning pending orthopedic surgery clearance and stabilization of blood sugars. 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
[2017-10-22 18:05] LABS: BACTERIA, URINE FEW /hpf; BILIRUBIN, URINE NEG (NEG); BLOOD, URINE MOD (NEG); GLUCOSE,URINE TRACE mg/dL (NEG); KETONE, URINE NEG (NEG); MUCUS URINE FEW /lpf (OCC); NITRITE,URINE NEG (NEG); PH, URINE 5.5 (5.0-8.5); URINE COLOR YELLOW (YELLW/STRAW); URINE LEUKOCYTE ESTERASE LARGE (NEG)
[2017-10-22] MEDS: MAGNESIUM HYDROXIDE SUSP 30 ML CUP PO PRN (21:17)
[2017-10-23 04:20] VITALS: BP 129/69; PULSE 88; RESP 18; TEMP 98.8; O2SAT 95
[2017-10-23] MEDS: ACETAMINOPHEN/HYDROcodone 325 MG/5 MG TAB PO PRN (05:58)
--- NOTE | 2017-10-23 06:12 | PD.ORT.PN ---
Subjective Post Op Day #: 2 Subjective Remarks Patient is awake alert and mildly confused. He relates mild hip discomfort. He has no other specific complaint. Objective Vitals Vital Signs Date Time Temp Pulse Resp B/P (MAP) Pulse Ox O2 Delivery O2 Flow Rate FiO2 10/23/17 04:20 98.8 88 18 129/69 (89) 95 10/22/17 23:20 99.8 91 18 133/69 (90) 95 10/22/17 19:40 100.5 88 19 129/64 (85) 94 10/22/17 16:21 18 10/22/17 16:00 99.8 84 18 119/61 (80) 97 10/22/17 12:00 98.8 80 18 135/65 (88) 97 10/22/17 08:00 97.6 75 18 149/77 (101) 98 I/O 10/22/17 10/22/17 10/22/17 10/23/17 10/23/17 10/23/17 07:00 15:00 23:00 07:00 15:00 23:00 Intake Total 2154 ml 600 ml Output Total 1250 ml 550 ml Balance 904 ml 50 ml Intake Oral 240 ml 600 ml IV Total 1914 ml Output Urine Total 1250 ml 550 ml Bladder Scan Volume Amount 415 ml 415 ml # Bowel Movements 0 0 Result Diagram: 10/22/17 0505 10/22/17 0505 Imaging Last 24 hours Impressions Chest X-Ray 10/20/172026 Signed Impressions: Service Date/Time: September 20:25 - CONCLUSION: 1. No acute abnormality or significant interval change. Abhinav Diaz MD Procedures Right hip hemiarthroplasty [place] 10/21/17 Objective Remarks Right upper extremity slight tenderness with motion of right shoulder. Skin is intact. No pain with elbow or wrist range of motion. Distally intact sensation good capillary refills. Left upper extremity full range of motion neurovascularly intact Left lower extremity: Full range of motion and neurovascularly intact Right lower extremity: Clean dry dressings intact. Knee immobilizer in place. Distally intact sensation and good capillary refills Assessment & Plan Problem List: (1) Hip fracture, right ICD Codes: S72.001A - Fracture of unspecified part of neck of right femur, initial encounter for closed fracture Status: Acute Qualifiers: Qualified Codes: S72.001A - Fracture of unspecified part of neck of right femur, initial encounter for closed fracture (2) FARZANEH (acute kidney injury) ICD Codes: N17.9 - Acute kidney failure, unspecified Status: Acute (3) Diabetes mellitus with hyperglycemia ICD Codes: E11.65 - Type 2 diabetes mellitus with hyperglycemia Qualifiers: Qualified Codes: E11.65 - Type 2 diabetes mellitus with hyperglycemia; 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 Beginning 10/31/2017 begin adding bacitracin over incision with Primapore Incentive spirometry Lovenox Discharge to rehabilitation Tuesday or Tuesday Follow-up Dr. [place] or [place] in 2 weeks Jani Romo MD Oct 23, 2017 06:12
[2017-10-23 08:00] VITALS: BP 144/70; PULSE 78; RESP 18; TEMP 98.1; O2SAT 96
[2017-10-23] MEDS: INSULIN ASPART SUPPLEMENTAL SCALE SQ SCH ×4 (08:00→21:40)
[2017-10-23] MEDS: INSULIN ASPART 1,000 UNITS/10 ML VIAL SQ SCH ×3 (08:00→17:51)
[2017-10-23 08:18] LABS: BASOPHIL # 0.1 TH/MM3 (0-0.2); BASOPHIL % 0.6 % (0.0-2.0); EOSINOPHIL % 0.4 % (0.0-4.0); HEMATOCRIT 32.2 % (39.0-51.0); LYMPH % 10.1 % (9.0-44.0); LYMPHOCYTE # 1.1 TH/MM3 (1.0-4.8); MEAN CELL VOLUME 89.1 FL (80.0-100.0); MEAN CORPUSCULAR HEMOGLOBIN 30.5 PG (27.0-34.0); MEAN CORPUSCULAR HGB CONC 34.2 % (32.0-36.0); MEAN PLATELET VOLUME 10.1 FL (7.0-11.0); MONO % 8.1 % (0.0-8.0); MONOCYTE # 0.9 TH/MM3 (0-0.9); NEUT % 80.8 % (16.0-70.0); PLATELET COUNT 180 TH/MM3 (150-450); RED BLOOD COUNT 3.62 MIL/MM3 (4.50-5.90); RED CELL DISTRIBUTION WIDTH 13.5 % (11.6-17.2); WHITE BLOOD COUNT 11.1 TH/MM3 (4.0-11.0)
[2017-10-23] MEDS: CHOLECALCIFEROL (VIT D3) 5000 UNIT CAP PO SCH (08:54)
[2017-10-23] MEDS: INSULIN DETEMIR 100 UNITS/ML VIAL SQ SCH ×2 (08:54→21:39)
[2017-10-23] MEDS: SODIUM CHLORIDE 0.9% FLUSH 10 ML FLUSH IV FLUSH SCH ×2 (08:55→20:27)
[2017-10-23] MEDS: DOCUSATE SODIUM 50 MG/SENNA 8.6 MG TAB PO SCH ×2 (08:55→20:31)
[2017-10-23] MEDS: ENOXAPARIN SODIUM 30 MG/0.3 ML SYRINGE SQ SCH (08:55)
[2017-10-23 09:05] LABS: BICARBONATE 28.1 MEQ/L (21.0-32.0); CALCIUM 8.6 MG/DL (8.5-10.1); CREATININE 1.04 MG/DL (0.60-1.30)
[2017-10-23 12:00] VITALS: BP 120/72; PULSE 105; RESP 18; TEMP 96.3; O2SAT 98
[2017-10-23 12:24] LABS: HEMOGLOBIN A1C 10.5 % (4.3-6.0)
[2017-10-23] MEDS ORDERED: cefTRIAXone INJ 2,000 MG in SODIUM CHLORIDE 0.9% INJ 100 ML IV SCH (15:00)
--- NOTE | 2017-10-23 15:17 | HHI.PR ---
Subjective Remarks Patient had a low grade temp last night WBC trending down Pain is controlled. Objective Vitals Vital Signs Date Time Temp Pulse Resp B/P (MAP) Pulse Ox O2 Delivery O2 Flow Rate FiO2 10/23/17 12:00 96.3 105 18 120/72 (88) 98 10/23/17 08:00 98.1 78 18 144/70 (94) 96 10/23/17 04:20 98.8 88 18 129/69 (89) 95 10/22/17 23:20 99.8 91 18 133/69 (90) 95 10/22/17 19:40 100.5 88 19 129/64 (85) 94 10/22/17 16:21 18 10/22/17 16:00 99.8 84 18 119/61 (80) 97 I/O 10/22/17 10/22/17 10/22/17 10/23/17 10/23/17 10/23/17 07:00 15:00 23:00 07:00 15:00 23:00 Intake Total 2154 ml 600 ml 640 ml Output Total 1250 ml 550 ml 650 ml Balance 904 ml 50 ml -10 ml Intake Oral 240 ml 600 ml 640 ml IV Total 1914 ml Output Urine Total 1250 ml 550 ml 650 ml Bladder Scan Volume Amount 415 ml 415 ml # Bowel Movements 0 0 0 Result Diagram: 10/23/17 0636 10/23/17 0636 Imaging Last Impressions Hip and Pelvis X-Ray 10/21/17 0851 Signed Impressions: Service Date/Time: Saturday, October 21, 2017 09:24 - CONCLUSION: 1. Expected postsurgical changes right total hip arthroplasty. 2. Please note that there is a 5 mm lucency at the interface between the proximal medial femoral shaft component and bone; this configuration can serve as a baseline. Tristan Figueroa MD Chest X-Ray 10/20/172026 Signed Impressions: Service Date/Time: September 20:25 - CONCLUSION: 1. No acute abnormality or significant interval change. Abhinav Diaz MD Objective Remarks GENERAL: male lying in bed SKIN: No rashes, ecchymoses or lesions. Cool and dry. HEAD: Atraumatic. Normocephalic. No temporal or scalp tenderness. EYES: Pupils equal round and reactive. Extraocular motions intact. No scleral icterus. No injection or drainage. ENT: Nose without bleeding, purulent drainage or septal hematoma. Throat without erythema, tonsillar hypertrophy or exudate. Uvula midline. Airway patent. NECK: Trachea midline. No JVD or lymphadenopathy. Supple, nontender, no meningeal signs. CARDIOVASCULAR: Regular rate and rhythm without murmurs, gallops, or rubs. RESPIRATORY: Clear to auscultation. Breath sounds equal bilaterally. No wheezes , rales, or rhonchi. GASTROINTESTINAL: Abdomen soft, non-tender, nondistended. No hepato-splenomegaly , or palpable masses. No guarding. MUSCULOSKELETAL: Extremities without clubbing, cyanosis, or edema. No calf tenderness. Neurovascularly intact. Postsurgical site C/D/I. No hematoma observed NEUROLOGICAL: Awake and alert. Cranial nerves II through XII intact. Motor and sensory grossly within normal limits. Five out of 5 muscle strength in all muscle groups. Normal speech. Medications and IVs Current Medications Medications (Trade) Dose Ordered Sig/Kristen Route Start Time Stop Time Status Last Admin (NS Flush) 2 ml UNSCH PRN IV FLUSH 10/20/17 23:00 (NS Flush) 2 ml BID IV FLUSH 10/21/17 09:00 10/21/17 22:12 (Tylenol) 650 mg Q4H PRN PO 10/20/17 23:00 (Zofran Inj) 4 mg Q6H PRN IVP 10/20/17 23:00 (Narcan Inj) 0.4 mg UNSCH PRN IV PUSH 10/20/17 23:00 (Jerri-Colace) 1 tab BID PO 10/21/17 09:00 10/23/17 08:55 (Milk Of Magnesia Liq) 30 ml Q12H PRN PO 10/20/17 23:00 18 21:17 (Senokot) 17.2 mg Q12H PRN PO 10/20/17 23:00 (Dulcolax Supp) 10 mg DAILY PRN RECTAL 10/20/17 23:00 (Lactulose Liq) 30 ml DAILY PRN PO 10/20/17 23:00 (Morphine Inj) 2 mg Q3H PRN IV PUSH 10/20/17 23:00 10/20/17 23:53 (D50w (Vial) Inj) 50 ml UNSCH PRN IV PUSH 10/20/17 23:00 (Glucagon Inj) 1 mg UNSCH PRN OTHER 10/20/17 23:00 (NovoLOG SUPPLEMENTAL SCALE) 1 ACHS SLIDING SCALE SQ 10/21/17 08:00 10/23/17 12:26 Lactated Ringer's 1,000 ml @ 30 mls/hr Q24H PRN IV 10/20/17 23:45 10/23/17 23:44 10/21/17 06:59 (Lopressor) 25 mg BUILDING [employer]STRUCTION IRONWORKER PRN PO 10/20/17 23:45 10/23/17 23:44 (Betadine 5% Antisepsis Kit) 1 applic [employer]ILDING [employer]STRU[employer] IRONWORKER PRN EACH NARE 10/20/17 23:45 10/23/17 23:44 (Chlorhexidine 2% Cloth) 3 pack [employer]ILDING [employer] IRON[employer]ER PRN TOPICAL 10/20/17 23:45 10/23/17 23:44 (Lovenox Inj) 30 mg Q24H SQ 10/22/17 08:00 10/23/17 08:55 ([place] 5-325 Mg) 1 tab Q3H PRN PO 10/21/17 09:00 10/23/17 05:58 (Morphine Inj) 3 mg Q3H PRN IV PUSH 10/21/17 09:00 (Vitamin D3) 5,000 units DAILY PO 10/22/17 09:00 10/23/17 08:54 (Levemir Inj) 8 units Q12HR SQ 10/21/17 21:00 10/23/17 08:54 (NovoLOG INJ) 5 units TIDAC SQ 10/22/17 08:00 10/23/17 12:26 Ceftriaxone Sodium 2000 mg/ Sodium Chloride 100 ml @ 200 mls/hr Q24H IV 10/23/17 15:00 UNV A/P Problem List: (1) Diabetes mellitus with hyperglycemia ICD Code: E11.65 - Type 2 diabetes mellitus with hyperglycemia (2) Hip fracture, right ICD Code: S72.001A - Fracture of unspecified part of neck of right femur, initial encounter for closed fracture Status: Acute (3) FARZANEH (acute kidney injury) ICD Code: N17.9 - Acute kidney failure, unspecified Status: Acute (4) Low grade fever ICD Code: R50.9 - Fever, unspecified Plan: Patient has been having a temperature elevation with a T-max of 100.8 since 10/22. Urinalysis ordered and positive for Leukocyte esterase increased RBCs, increased WBCs, urine bacteria and urine mucus. Urine culture did not show any growth in 24 hours however Repeat urinalysis with catheterized urine to avoid contamination. We will check a chest x-ray. Start empiric IV Rocephin until UTI ruled out or ruled in. The patient will need to be 24 hours fever free prior to be able to be discharged. Assessment and Plan Assessment/plan: 1. Right femoral neck fracture Hip x-ray significant for subcapital right femoral neck fracture Orthopedic surgery consulted, appreciate assistance Morphine for pain The patient is status post right hip hemiarthroplasty. Continue pain control as per orthopedic surgery. Weightbearing as tolerated. 10/23 Patient cleared to be discharged by orthopedic surgery. fu recommendations. 2. Diabetes mellitus Holding home oral anti-hyperglycemics Sinus scale insulin Monitor blood glucose 10/21 blood sugar is severely elevated in the 300s. Start the patient on basal bolus therapy with insulin Levemir and prandial insulin NovoLog. 10/23 Hemoglobin A1c 10.5. Diabetes uncontrolled. Blood sugar still severely elevated in the 300s range. Blood sugar still severely elevated. I will increase insulin Levemir and prandial NovoLog dose for target blood sugar less than 180. 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 3. Acute kidney injury on chronic kidney disease As per review of records creatinine 1.50 in 2017. Back in 2012 patient had a normal creatinine of 0.8. Suspect there is some degree of acute kidney injury which is improving since creatinine trended down from 1.65-1.39. Continue to monitor BMP, STI's and O's and avoid nephrotoxins. 10/23 creatinine trending down to 1.04. Acute kidney injury resolving. FEN Electrolytes: Monitor and replete when necessary Lovenox subcu as per orthopedic surgery for DVT prophylaxis. Discharge Planning Pending stabilization of blood sugars and resolution of low grade fever. 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
--- NOTE | 2017-10-23 15:52 | RADRPT ---
EXAM DATE/TIME: 10/23/2017 15:42 [place] COMPARISON: CHEST SINGLE AP, October 20, 2017, 20:25. INDICATIONS : Fever. MEDICAL HISTORY : Diabetes mellitus type II SURGICAL HISTORY : Hernia repair. ENCOUNTER: Subsequent ACUITY: 1 day PAIN SCORE: Non-responsive. LOCATION: Bilateral chest FINDINGS: A single view of the chest demonstrates the lungs to be symmetrically aerated without evidence of mas s, infiltrate or effusion. The cardiomediastinal contours are unremarkable. Osseous structures are intact. CONCLUSION: No acute disease. No significant change has occurred. Ish Ceron MD on October 23, 2017 at 15:50 Board Certified Radiologist. This report was verified electronically.
[2017-10-23 16:00] VITALS: BP 121/62; PULSE 82; RESP 18; TEMP 100.1; O2SAT 98
[2017-10-23 20:15] VITALS: BP 125/71; PULSE 60; RESP 18; TEMP 98.5; O2SAT 95
[2017-10-23 23:10] VITALS: BP 128/83; PULSE 116; RESP 18; TEMP 100.4; O2SAT 96
[2017-10-24 04:46] VITALS: TEMP 99.4
[2017-10-24 05:50] LABS: AUTOMATED NEUTROPHIL # 9.3 TH/MM3 (1.8-7.7); BASOPHIL # 0.1 TH/MM3 (0-0.2); BASOPHIL % 0.8 % (0.0-2.0); EOSINOPHIL # 0.1 TH/MM3 (0-0.4); EOSINOPHIL % 0.7 % (0.0-4.0); HEMATOCRIT 34.2 % (39.0-51.0); HEMOGLOBIN 11.8 GM/DL (13.0-17.0); LYMPHOCYTE # 1.7 TH/MM3 (1.0-4.8); MEAN CORPUSCULAR HEMOGLOBIN 30.8 PG (27.0-34.0); MEAN CORPUSCULAR HGB CONC 34.5 % (32.0-36.0); MONO % 8.7 % (0.0-8.0); MONOCYTE # 1.1 TH/MM3 (0-0.9); NEUT % 75.8 % (16.0-70.0); PLATELET COUNT 199 TH/MM3 (150-450); RED BLOOD COUNT 3.85 MIL/MM3 (4.50-5.90); RED CELL DISTRIBUTION WIDTH 13.1 % (11.6-17.2); WHITE BLOOD COUNT 12.2 TH/MM3 (4.0-11.0)
[2017-10-24 06:15] LABS: BICARBONATE 29.8 MEQ/L (21.0-32.0); CALCIUM 8.9 MG/DL (8.5-10.1); CREATININE 1.18 MG/DL (0.60-1.30)
--- NOTE | 2017-10-24 06:35 | PD.ORT.PN ---
Subjective Subjective Remarks Resting comfortably Objective Vitals Vital Signs Date Time Temp Pulse Resp B/P (MAP) Pulse Ox O2 Delivery O2 Flow Rate FiO2 10/24/17 04:46 99.4 10/23/17 23:10 100.4 116 18 128/83 (98) 96 10/23/17 20:15 98.5 60 18 125/71 (89) 95 10/23/17 16:00 100.1 82 18 121/62 (81) 98 10/23/17 12:00 96.3 105 18 120/72 (88) 98 10/23/17 08:00 98.1 78 18 144/70 (94) 96 I/O 10/23/17 10/23/17 10/23/17 10/24/17 10/24/17 10/24/17 07:00 15:00 23:00 07:00 15:00 23:00 Intake Total 640 ml 240 ml 260 ml Output Total 650 ml 325 ml Balance -10 ml 240 ml -65 ml Intake Oral 640 ml 240 ml 260 ml Output Urine Total 650 ml 325 ml Bladder Scan Volume Amount 415 ml 415 ml # Voids 2 # Bowel Movements 0 1 1 Result Diagram: 10/24/172 10/24/17 041 Imaging Last 24 hours Impressions Chest X-Ray 10/20/172026 Signed Impressions: Service Date/Time: September 20:25 - CONCLUSION: 1. No acute abnormality or significant interval change. Abhinav Diaz MD Procedures Right hip hemiarthroplasty [place] 10/21/17 Objective Remarks Right upper extremity slight tenderness with motion of right shoulder. Skin is intact. No pain with elbow or wrist range of motion. Distally intact sensation good capillary refills. Left upper extremity full range of motion neurovascularly intact Left lower extremity: Full range of motion and neurovascularly intact Right lower extremity: Clean dry dressings intact. Knee immobilizer in place. Distally intact sensation and good capillary refills Assessment & Plan Problem List: (1) Hip fracture, right ICD Codes: S72.001A - Fracture of unspecified part of neck of right femur, initial encounter for closed fracture Status: Acute Qualifiers: Qualified Codes: S72.001A - Fracture of unspecified part of neck of right femur, initial encounter for closed fracture (2) FARZANEH (acute kidney injury) ICD Codes: N17.9 - Acute kidney failure, unspecified Status: Acute (3) Diabetes mellitus with hyperglycemia ICD Codes: E11.65 - Type 2 diabetes mellitus with hyperglycemia Qualifiers: Qualified Codes: E11.65 - Type 2 diabetes mellitus with hyperglycemia; Z79.4 - FDC (current) use of insulin (4) Diabetes mellitus ICD Codes: E11.9 - Type 2 diabetes mellitus without complications Status: Acute Assessment and Plan Right hip hemiarthroplasty POD 3 Weightbearing as tolerated with posterior hip precautions Knee immobilizer while in bed Begin daily dressing changes beginning with dry dressings of [place]. Beginning 10/31/2017 begin adding bacitracin over incision with [place] Incentive spirometry Lovenox Discharge to rehabilitation when bed available Follow-up Dr. Hudson or [place] in 2 weeks Shahid Crump Jr. Oct 24, 2017 06:35
[2017-10-24 08:00] VITALS: BP 135/73; PULSE 111; RESP 17; TEMP 98.4; O2SAT 97
[2017-10-24] MEDS: INSULIN ASPART SUPPLEMENTAL SCALE SQ SCH ×4 (08:00→21:00)
[2017-10-24] MEDS: INSULIN ASPART 1,000 UNITS/10 ML VIAL SQ SCH ×3 (08:00→16:51)
[2017-10-24] MEDS: INSULIN DETEMIR 100 UNITS/ML VIAL SQ SCH ×2 (08:01→21:02)
[2017-10-24] MEDS: ENOXAPARIN SODIUM 30 MG/0.3 ML SYRINGE SQ SCH (09:21)
[2017-10-24] MEDS: DOCUSATE SODIUM 50 MG/SENNA 8.6 MG TAB PO SCH ×2 (09:21→21:02)
[2017-10-24] MEDS: CHOLECALCIFEROL (VIT D3) 5000 UNIT CAP PO SCH (09:21)
[2017-10-24] MEDS: SODIUM CHLORIDE 0.9% FLUSH 10 ML FLUSH IV FLUSH SCH ×2 (09:24→21:00)
[2017-10-24 12:00] VITALS: BP 128/62; PULSE 97; RESP 17; TEMP 97; O2SAT 97
--- NOTE | 2017-10-24 14:54 | PD.CONS ---
History of Present Illness Service Infectious disease Consult Requested By Dr. Cyndi Haynes Reason for Consult Evaluate patient with low-grade temps Primary Care Physician [facility] Diagnoses: History of Present Illness Patient seen and examined. Records reviewed. Patient is an 87-year-old male, presented to the hospital for further evaluation of right hip pain. He apparently fell about 3 weeks ago. He has had persistent pain since, and has been having difficulty ambulating. On presentation the emergency room he was found to have a partially displaced right femoral neck fracture. Patient underwent surgery on October 21 and had right hip hemiarthroplasty. Starting October 22 he's been having some low- grade temps. Denies any respiratory complaint. No nausea or vomiting or diarrhea. Patient had a Crawford postop, and this was removed. However he had some urinary retention and the Crawford was reinserted, but removed yesterday. Patient currently is having difficulty voiding. Chest x-ray did not show any infiltrate. Urinalysis did show pyuria, but the culture is negative. Patient had Ancef perioperatively. Patient is currently on Rocephin. His WBC is mildly elevated. Patient stated that he has had prostate problem and sometimes has difficulty urinating. Infectious disease consultation has been requested to evaluate the patient with low-grade temps. Review of Systems Constitutional: COMPLAINS OF: Fever, DENIES: Chills, Night Sweats Eyes: DENIES: Eye pain Ears, nose, mouth, throat: DENIES: Nasal discharge, Oral lesions, Throat pain, Running Nose, Sinus Pain Respiratory: DENIES: Cough, Shortness of breath Cardiovascular: DENIES: Chest pain, Palpitations Gastrointestinal: COMPLAINS OF: Abdominal pain, DENIES: Diarrhea, Nausea, Vomiting, Difficulty Swallowing Genitourinary: COMPLAINS OF: Urgency, DENIES: Dysuria Musculoskeletal: COMPLAINS OF: Joint pain, DENIES: Neck pain Integumentary: DENIES: Rash Neurologic: DENIES: Headache, Localized weakness Past Family Social History Allergies: Coded Allergies: No Known Allergies (Verified Allergy, Unknown, 10/20/17) Past Medical History Diabetes mellitus Past Surgical History Hernia repair x 2 Active Ordered Medications Current Medications Medications (Trade) Dose Ordered Sig/Kristen Route Start Time Stop Time Status Last Admin (NS Flush) 2 ml UNSCH PRN IV FLUSH 10/20/17 23:00 (NS Flush) 2 ml BID IV FLUSH 10/21/17 09:00 10/24/17 09:24 (Tylenol) 650 mg Q4H PRN PO 10/20/17 23:00 (Zofran Inj) 4 mg Q6H PRN IVP 10/20/17 23:00 (Narcan Inj) 0.4 mg UNSCH PRN IV PUSH 10/20/17 23:00 (Jerri-Colace) 1 tab BID PO 10/21/17 09:00 10/24/17 09:21 (Milk Of Magnesia Liq) 30 ml Q12H PRN PO 10/20/17 23:00 10/22/17 21:17 (Senokot) 17.2 mg Q12H PRN PO 10/20/17 23:00 (Dulcolax Supp) 10 mg DAILY PRN RECTAL 10/20/17 23:00 (Lactulose Liq) 30 ml DAILY PRN PO 10/20/17 23:00 (Morphine Inj) 2 mg Q3H PRN IV PUSH 10/20/17 23:00 10/20/17 23:53 (D50w (Vial) Inj) 50 ml UNSCH PRN IV PUSH 10/20/17 23:00 (Glucagon Inj) 1 mg UNSCH PRN OTHER 10/20/17 23:00 (NovoLOG SUPPLEMENTAL SCALE) 1 ACHS SLIDING SCALE SQ 10/21/17 08:00 10/24/17 12:37 (Lovenox Inj) 30 mg Q24H SQ 10/22/17 08:00 10/24/17 09:21 ([place]akin 5-325 Mg) 1 tab Q3H PRN PO 10/21/17 09:00 10/23/17 05:58 (Morphine Inj) 3 mg Q3H PRN IV PUSH 10/21/17 09:00 (Vitamin D3) 5,000 units DAILY PO 10/22/17 09:00 10/24/17 09:21 Ceftriaxone Sodium 2000 mg/ Sodium Chloride 100 ml @ 200 mls/hr Q24H IV 10/23/17 15:00 10/23/17 15:00 (NovoLOG INJ) 8 units TIDAC SQ 10/23/17 17:00 10/24/17 12:37 (Levemir Inj) 12 units Q12HR SQ 10/23/17 21:00 10/23/17 21:39 Family History Father with coronary artery disease Social History Denies tobacco. Occasional alcohol. Denies illicit drugs. Physical Exam Vital Signs Vital Signs Date Time Temp Pulse Resp B/P (MAP) Pulse Ox O2 Delivery O2 Flow Rate FiO2 10/24/17 12:00 97.0 97 17 128/62 (84) 97 10/24/17 08:00 98.4 111 17 135/73 (93) 97 10/24/17 04:46 99.4 10/23/17 23:10 100.4 116 18 128/83 (98) 96 10/23/17 20:15 98.5 60 18 125/71 (89) 95 10/23/17 16:00 100.1 82 18 121/62 (81) 98 Physical Exam GENERAL: Patient is a well-nourished, well-developed male, awake and alert, not in respiratory distress. SKIN: Warm and dry. No generalized rash, no ecchymoses and no evidence of embolic lesions. HEAD: Atraumatic. Normocephalic. No temporal wasting, or tenderness. EYES: [place] conjunctiva. No petechia or hemorrhage. Pupils equal, round and reactive to light. Extraocular movements full and intact. No scleral icterus. No injection or drainage. EARS, NOSE AND THROAT: Nose without bleeding or purulent nasal discharge. No sinus tenderness. Mucous membranes pink and moist. No oral lesions noted. NECK: Trachea midline. Supple and not tender, no meningeal signs CARDIOVASCULAR: Regular rate and rhythm. No murmurs, rubs or gallops heard RESPIRATORY: Clear to auscultation. Breath sounds equal bilaterally. No rales , wheezing or rhonchi ABDOMEN: Soft, mildly distended, tender in suprapubic region, with fullness. Bowel sounds present and normoactive. No guarding. No rebound. No organomegaly. EXTREMITIES: No clubbing, cyanosis, or edema. Has immobilizer in his RLE. Incision R hip is dry, no drainage or redness. No L calf tenderness. Well perfused and warm. NEUROLOGICAL: Awake and alert. Cranial nerves grossly intact. Motor grossly within normal limits. PSYCHIATRIC: Normal affect, calm and cooperative. LINE: No evidence of infection, IV sites look ok Laboratory Laboratory Tests Test 10/24/17 04:12 White Blood Count 12.2 Red Blood Count 3.85 Hemoglobin 11.8 Hematocrit 34.2 Mean Corpuscular Volume 89.0 Mean Corpuscular Hemoglobin 30.8 Mean Corpuscular Hemoglobin Concent 34.5 Red Cell Distribution Width 13.1 Platelet Count 199 Mean Platelet Volume 10.0 Neutrophils (%) (Auto) 75.8 Lymphocytes (%) (Auto) 14.0 Monocytes (%) (Auto) 8.7 Eosinophils (%) (Auto) 0.7 Basophils (%) (Auto) 0.8 Neutrophils # (Auto) 9.3 Lymphocytes # (Auto) 1.7 Monocytes # (Auto) 1.1 Eosinophils # (Auto) 0.1 Basophils # (Auto) 0.1 CBC Comment DIFF FINAL Differential Comment Blood Urea Nitrogen 26 Creatinine 1.18 Random Glucose 97 Calcium Level 8.9 Sodium Level 136 Potassium Level 3.9 Chloride Level 100 Carbon Dioxide Level 29.8 Anion Gap 6 Estimat Glomerular Filtration Rate 58 Date/Time Source Procedure Growth Status 10/22/17 17:20 Urine Random Urine Urine Culture - Final NO GROWTH IN 48 HOURS. Complete Result Diagram: 10/24/17 0412 10/24/17 0412 Imaging RADIOLOGY STUDIES/FILMS REVIEWED Chest X-Ray 10/23/17 0000 Signed Impressions: Service Date/Time: Monday, October 23, 2017 15:42 - CONCLUSION: No acute disease. No significant change has occurred. Ish Ceron MD Hip and Pelvis X-Ray 10/21/17 0851 Signed Impressions: Service Date/Time: Saturday, October 21, 2017 09:24 - CONCLUSION: 1. Expected postsurgical changes right total hip arthroplasty. 2. Please note that there is a 5 mm lucency at the interface between the proximal medial femoral shaft component and bone; this configuration can serve as a baseline. Tristan Figueroa MD Assessment and Plan Assessment and Plan IMPRESSION Low grade temps likely due to source - has urinary retention - UA with pyuria - UC negative because he has been on Abx S/P R hip hemiarthroplasty RECOMMENDATION Place crawford - straight cath put out 600+ ml urine Repeat UA and C/S Change to cefepime Adjust Abx once C/S available Follow C/S Follow temps Monitor progress I will follow along with you Thank you for this consultation Discussed Condition With D/W RN Vickie Merrill MD Oct 24, 2017 14:54
--- NOTE | 2017-10-24 15:25 | HHI.PR ---
Subjective Remarks This chart entry, the patient was seen earlier at 1315 hrs. The patient complains of pain in the right hip. Denies chest pain or shortness of breath, denies cough. Denies diarrhea. Patient still had a low-grade fever with a T-max of 100.4. Objective Vitals Vital Signs Date Time Temp Pulse Resp B/P (MAP) Pulse Ox O2 Delivery O2 Flow Rate FiO2 10/24/17 12:00 97.0 97 17 128/62 (84) 97 10/24/17 08:00 98.4 111 17 135/73 (93) 97 10/24/17 04:46 99.4 10/23/17 23:10 100.4 116 18 128/83 (98) 96 10/23/17 20:15 98.5 60 18 125/71 (89) 95 10/23/17 16:00 100.1 82 18 121/62 (81) 98 I/O 10/23/17 10/23/17 10/23/17 10/24/17 10/24/17 10/24/17 07:00 15:00 23:00 07:00 15:00 23:00 Intake Total 640 ml 240 ml 260 ml Output Total 650 ml 325 ml Balance -10 ml 240 ml -65 ml Intake Oral 640 ml 240 ml 260 ml Output Urine Total 650 ml 325 ml Bladder Scan Volume Amount 415 ml 415 ml # Voids 2 # Bowel Movements 0 1 1 Result Diagram: 10/24/17 0412 10/24/17 0412 Imaging Last Impressions Chest X-Ray 10/23/17 0000 Signed Impressions: Service Date/Time: Monday, October 23, 2017 15:42 - CONCLUSION: No acute disease. No significant change has occurred. Ish Ceron MD Hip and Pelvis X-Ray 10/21/17 0851 Signed Impressions: Service Date/Time: Saturday, October 21, 2017 09:24 - CONCLUSION: 1. Expected postsurgical changes right total hip arthroplasty. 2. Please note that there is a 5 mm lucency at the interface between the proximal medial femoral shaft component and bone; this configuration can serve as a baseline. Tristan Figueroa MD Objective Remarks GENERAL: male lying in bed SKIN: No rashes, ecchymoses or lesions. Cool and dry. HEAD: Atraumatic. Normocephalic. No temporal or scalp tenderness. EYES: Pupils equal round and reactive. Extraocular motions intact. No scleral icterus. No injection or drainage. ENT: Nose without bleeding, purulent drainage or septal hematoma. Throat without erythema, tonsillar hypertrophy or exudate. Uvula midline. Airway patent. NECK: Trachea midline. No JVD or lymphadenopathy. Supple, nontender, no meningeal signs. CARDIOVASCULAR: Regular rate and rhythm without murmurs, gallops, or rubs. RESPIRATORY: Clear to auscultation. Breath sounds equal bilaterally. No wheezes , rales, or rhonchi. GASTROINTESTINAL: Abdomen soft, non-tender, nondistended. No hepato-splenomegaly , or palpable masses. No guarding. MUSCULOSKELETAL: Extremities without clubbing, cyanosis, or edema. No calf tenderness. Neurovascularly intact. Postsurgical site C/D/I. No hematoma observed NEUROLOGICAL: Awake and alert. Cranial nerves II through XII intact. Motor and sensory grossly within normal limits. Five out of 5 muscle strength in all muscle groups. Normal speech. Medications and IVs Current Medications Medications (Trade) Dose Ordered Sig/Kristen Route Start Time Stop Time Status Last Admin (NS Flush) 2 ml UNSCH PRN IV FLUSH 10/20/17 23:00 (NS Flush) 2 ml BID IV FLUSH 10/21/17 09:00 10/24/17 09:24 (Tylenol) 650 mg Q4H PRN PO 10/20/17 23:00 (Zofran Inj) 4 mg Q6H PRN IVP 10/20/17 23:00 (Narcan Inj) 0.4 mg UNSCH PRN IV PUSH 10/20/17 23:00 (Jerri-Colace) 1 tab BID PO 10/21/17 09:00 10/24/17 09:21 (Milk Of Magnesia Liq) 30 ml Q12H PRN PO 10/20/17 23:00 10/22/17 21:17 (Senokot) 17.2 mg Q12H PRN PO 10/20/17 23:00 (Dulcolax Supp) 10 mg DAILY PRN RECTAL 10/20/17 23:00 (Lactulose Liq) 30 ml DAILY PRN PO 10/20/17 23:00 (Morphine Inj) 2 mg Q3H PRN IV PUSH 10/20/17 23:00 10/20/17 23:53 (D50w (Vial) Inj) 50 ml UNSCH PRN IV PUSH 10/20/17 23:00 (Glucagon Inj) 1 mg UNSCH PRN OTHER 10/20/17 23:00 (NovoLOG SUPPLEMENTAL SCALE) 1 ACHS SLIDING SCALE SQ 10/21/17 08:00 10/24/17 12:37 (Lovenox Inj) 30 mg Q24H SQ 10/22/17 08:00 10/24/17 09:21 ([place] 5-325 Mg) 1 tab Q3H PRN PO 10/21/17 09:00 10/23/17 05:58 (Morphine Inj) 3 mg Q3H PRN IV PUSH 10/21/17 09:00 (Vitamin D3) 5,000 units DAILY PO 10/22/17 09:00 10/24/17 09:21 (NovoLOG INJ) 8 units TIDAC SQ 10/23/17 17:00 10/24/17 12:37 (Levemir Inj) 12 units Q12HR SQ 10/23/17 21:00 10/23/17 21:39 Cefepime HCl 2000 mg/Sodium Chloride 100 ml @ 200 mls/hr Q12H IV 10/24/17 16:00 A/P Problem List: (1) Diabetes mellitus with hyperglycemia ICD Code: E11.65 - Type 2 diabetes mellitus with hyperglycemia (2) Hip fracture, right ICD Code: S72.001A - Fracture of unspecified part of neck of right femur, initial encounter for closed fracture Status: Acute (3) FARZANEH (acute kidney injury) ICD Code: N17.9 - Acute kidney failure, unspecified Status: Acute (4) Low grade fever ICD Code: R50.9 - Fever, unspecified Plan: Patient has been having a temperature elevation with a T-max of 100.8 since 10/22. Urinalysis ordered and positive for Leukocyte esterase increased RBCs, increased WBCs, urine bacteria and urine mucus. Urine culture did not show any growth in 24 hours however Repeat urinalysis with catheterized urine to avoid contamination. We will check a chest x-ray. Start empiric IV Rocephin until UTI ruled out or ruled in. The patient will need to be 24 hours fever free prior to be able to be discharged. 10/24 consult infectious disease, the patient still having low-grade temp with worsening leukocytosis. Assessment and Plan Assessment/plan: 1. Right femoral neck fracture Hip x-ray significant for subcapital right femoral neck fracture Orthopedic surgery consulted, appreciate assistance Morphine for pain The patient is status post right hip hemiarthroplasty. Continue pain control as per orthopedic surgery. Weightbearing as tolerated. 10/23 Patient cleared to be discharged by orthopedic surgery. fu recommendations. 2. Diabetes mellitus Holding home oral anti-hyperglycemics Sinus scale insulin Monitor blood glucose 10/21 blood sugar is severely elevated in the 300s. Start the patient on basal bolus therapy with insulin Levemir and prandial insulin NovoLog. 10/23 Hemoglobin A1c 10.5. Diabetes uncontrolled. Blood sugar still severely elevated in the 300s range. Blood sugar still severely elevated. I will increase insulin Levemir and prandial NovoLog dose for target blood sugar less than 180. 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 10/24 level blood sugar with blood sugar at 80 mm of 97, blood sugar at noon in the 300s range. Continue same dose of insulin Levemir and prandial insulin NovoLog. Continue SSI with insulin NovoLog. 3. Acute kidney injury on chronic kidney disease As per review of records creatinine 1.50 in 2017. Back in 2012 patient had a normal creatinine of 0.8. Suspect there is some degree of acute kidney injury which is improving since creatinine trended down from 1.65-1.39. Continue to monitor BMP, STI's and O's and avoid nephrotoxins. Resolved after IV fluid administration. FEN Electrolytes: Monitor and replete when necessary Lovenox subcu as per orthopedic surgery for DVT prophylaxis. Discharge Planning Pending stabilization of blood sugars and resolution of low grade fever. Problem Qualifiers (1) Diabetes mellitus with hyperglycemia: Qualified Codes: E11.65 - Type 2 diabetes mellitus with hyperglycemia; Z79.4 - care home (current) use of insulin (2) Hip fracture, right: Qualified Codes: S72.001A - Fracture of unspecified part of neck of right femur , initial encounter for closed fracture Rosendo Yañez MD Oct 24, 2017 15:25
[2017-10-24 16:00] VITALS: BP 134/67; PULSE 85; RESP 17; TEMP 98.1; O2SAT 98
[2017-10-24 16:09] LABS: BACTERIA, URINE RARE /hpf; BILIRUBIN, URINE NEG (NEG); BLOOD, URINE MOD (NEG); GLUCOSE,URINE 300 mg/dL (NEG); KETONE, URINE NEG (NEG); MUCUS URINE FEW /lpf (OCC); NITRITE,URINE NEG (NEG); SQUAMOUS EPITHELIAL CELL URINE <1 /hpf (0-5); URINE COLOR YELLOW (YELLW/STRAW); URINE LEUKOCYTE ESTERASE NEG (NEG)
[2017-10-24] MEDS: CEFEPIME INJ 2,000 MG in SODIUM CHLORIDE 0.9% INJ 100 ML IV SCH (16:41)
[2017-10-24 20:01] VITALS: BP 125/62; PULSE 77; RESP 15; TEMP 96.8; TEMP 98.9; O2SAT 98
[2017-10-25] VITALS: BP 135/77; PULSE 77; RESP 15; TEMP 98; O2SAT 98
[2017-10-25] MEDS: CEFEPIME INJ 2,000 MG in SODIUM CHLORIDE 0.9% INJ 100 ML IV SCH (03:41)
--- NOTE | 2017-10-25 06:47 | PD.ORT.PN ---
Subjective Subjective Remarks Resting comfortably Objective Vitals Vital Signs Date Time Temp Pulse Resp B/P (MAP) Pulse Ox O2 Delivery O2 Flow Rate FiO2 10/25/17 00:00 98.0 77 15 135/77 (96) 98 10/24/17 20:01 98.9 77 15 125/62 (83) 98 10/24/17 16:00 98.1 85 17 134/67 (89) 98 10/24/17 12:00 97.0 97 17 128/62 (84) 97 10/24/17 08:00 98.4 111 17 135/73 (93) 97 I/O 10/24/17 10/24/17 10/24/17 10/25/17 10/25/17 10/25/17 07:00 15:00 23:00 07:00 15:00 23:00 Intake Total 260 ml 425 ml 400 ml Output Total 325 ml 425 ml 1000 ml 300 ml Balance -65 ml 0 ml -600 ml -300 ml Intake Oral 260 ml 425 ml 300 ml IV Total 100 ml Output Urine Total 325 ml 425 ml 1000 ml 300 ml # Bowel Movements 1 0 Result Diagram: 10/24/172 10/24/17411 Imaging Last 24 hours Impressions Chest X-Ray 10/20/172026 Signed Impressions: Service Date/Time: September 20:25 - CONCLUSION: 1. No acute abnormality or significant interval change. Abhinav Diaz MD Procedures Right hip hemiarthroplasty [place] 10/21/17 Objective Remarks Right upper extremity slight tenderness with motion of right shoulder. Skin is intact. No pain with elbow or wrist range of motion. Distally intact sensation good capillary refills. Left upper extremity full range of motion neurovascularly intact Left lower extremity: Full range of motion and neurovascularly intact Right lower extremity: Clean dry dressings intact. Incision healing well. No erythema. Knee immobilizer in place. Distally intact sensation and good capillary refills Assessment & Plan Problem List: (1) Hip fracture, right ICD Codes: S72.001A - Fracture of unspecified part of neck of right femur, initial encounter for closed fracture Status: Acute Qualifiers: Qualified Codes: S72.001A - Fracture of unspecified part of neck of right femur, initial encounter for closed fracture (2) FARZANEH (acute kidney injury) ICD Codes: N17.9 - Acute kidney failure, unspecified Status: Acute (3) Diabetes mellitus with hyperglycemia ICD Codes: E11.65 - Type 2 diabetes mellitus with hyperglycemia Qualifiers: Qualified Codes: E11.65 - Type 2 diabetes mellitus with hyperglycemia; 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 Beginning 10/31/2017 begin adding bacitracin over incision with [place] Incentive spirometry Lovenox Discharge to rehabilitation when bed available Follow-up Dr. Hudson or [place] in 2 weeks Shahid Crump Jr. Oct 25, 2017 06:47
[2017-10-25 07:12] LABS: AUTOMATED NEUTROPHIL # 6.7 TH/MM3 (1.8-7.7); BASOPHIL # 0.1 TH/MM3 (0-0.2); BASOPHIL % 0.8 % (0.0-2.0); EOSINOPHIL # 0.1 TH/MM3 (0-0.4); EOSINOPHIL % 1.3 % (0.0-4.0); HEMATOCRIT 31.6 % (39.0-51.0); LYMPH % 13.5 % (9.0-44.0); LYMPHOCYTE # 1.2 TH/MM3 (1.0-4.8); MEAN CELL VOLUME 88.5 FL (80.0-100.0); MEAN CORPUSCULAR HEMOGLOBIN 30.8 PG (27.0-34.0); MEAN CORPUSCULAR HGB CONC 34.8 % (32.0-36.0); MONOCYTE # 0.8 TH/MM3 (0-0.9); NEUT % 75.4 % (16.0-70.0); PLATELET COUNT 190 TH/MM3 (150-450); RED BLOOD COUNT 3.57 MIL/MM3 (4.50-5.90); WHITE BLOOD COUNT 8.9 TH/MM3 (4.0-11.0)
[2017-10-25 07:31] LABS: ALBUMIN 2.2 GM/DL (3.4-5.0); ALT (GPT) 15 U/L (12-78); AST (GOT) 17 U/L (15-37); BLOOD UREA NITROGEN 27 MG/DL (7-18); CHLORIDE 100 MEQ/L (98-107); GLOMERULAR FILTRATION RATE 71 ML/MIN (>89); GLUCOSE,RANDOM 152 MG/DL (74-106); MAGNESIUM 2.1 MG/DL (1.5-2.5); PHOSPHORUS 2.8 MG/DL (2.5-4.9); SODIUM (NA) 136 MEQ/L (136-145)
[2017-10-25 07:34] LABS: ALKALINE PHOSPHATASE 56 U/L (45-117); TOTAL BILIRUBIN ADULT 0.6 MG/DL (0.2-1.0)
[2017-10-25 08:00] VITALS: BP 133/63; PULSE 77; RESP 18; TEMP 98.8; O2SAT 96
[2017-10-25] MEDS: ENOXAPARIN SODIUM 30 MG/0.3 ML SYRINGE SQ SCH (09:04)
[2017-10-25] MEDS: INSULIN ASPART 1,000 UNITS/10 ML VIAL SQ SCH ×3 (09:05→18:17)
[2017-10-25] MEDS: SODIUM CHLORIDE 0.9% FLUSH 10 ML FLUSH IV FLUSH SCH ×2 (09:06→20:15)
[2017-10-25] MEDS: INSULIN DETEMIR 100 UNITS/ML VIAL SQ SCH ×2 (09:06→20:17)
[2017-10-25] MEDS: DOCUSATE SODIUM 50 MG/SENNA 8.6 MG TAB PO SCH ×2 (09:06→20:15)
[2017-10-25] MEDS: INSULIN ASPART SUPPLEMENTAL SCALE SQ SCH ×4 (09:06→20:17)
[2017-10-25] MEDS: CHOLECALCIFEROL (VIT D3) 5000 UNIT CAP PO SCH (09:06)
--- NOTE | 2017-10-25 10:08 | HHI.PR ---
Subjective Remarks Patient is a afebrile. 600 mL's of urine drained yesterday. Denies chest pain or shortness of breath. Objective Vitals Vital Signs Date Time Temp Pulse Resp B/P (MAP) Pulse Ox O2 Delivery O2 Flow Rate FiO2 10/25/17 08:00 98.8 77 18 133/63 (86) 96 10/25/17 07:30 Room Air 10/25/17 00:00 98.0 77 15 135/77 (96) 98 10/24/17 20:01 98.9 77 15 125/62 (83) 98 10/24/17 16:00 98.1 85 17 134/67 (89) 98 10/24/17 12:00 97.0 97 17 128/62 (84) 97 I/O 10/24/17 10/24/17 10/24/17 10/25/17 10/25/17 10/25/17 07:00 15:00 23:00 07:00 15:00 23:00 Intake Total 260 ml 425 ml 400 ml Output Total 325 ml 425 ml 1000 ml 300 ml Balance -65 ml 0 ml -600 ml -300 ml Intake Oral 260 ml 425 ml 300 ml IV Total 100 ml Output Urine Total 325 ml 425 ml 1000 ml 300 ml Bladder Scan Volume Amount 415 ml # Bowel Movements 1 0 Result Diagram: 10/25/17 0634 10/25/17 0634 Imaging Last Impressions Chest X-Ray 10/23/17 0000 Signed Impressions: Service Date/Time: Monday, October 23, 2017 15:42 - CONCLUSION: No acute disease. No significant change has occurred. Ish Ceron MD Hip and Pelvis X-Ray 10/21/17 0851 Signed Impressions: Service Date/Time: Saturday, October 21, 2017 09:24 - CONCLUSION: 1. Expected postsurgical changes right total hip arthroplasty. 2. Please note that there is a 5 mm lucency at the interface between the proximal medial femoral shaft component and bone; this configuration can serve as a baseline. Tristan Figueroa MD Objective Remarks GENERAL: male lying in bed SKIN: No rashes, ecchymoses or lesions. Cool and dry. HEAD: Atraumatic. Normocephalic. No temporal or scalp tenderness. EYES: Pupils equal round and reactive. Extraocular motions intact. No scleral icterus. No injection or drainage. ENT: Nose without bleeding, purulent drainage or septal hematoma. Throat without erythema, tonsillar hypertrophy or exudate. Uvula midline. Airway patent. NECK: Trachea midline. No JVD or lymphadenopathy. Supple, nontender, no meningeal signs. CARDIOVASCULAR: Regular rate and rhythm without murmurs, gallops, or rubs. RESPIRATORY: Clear to auscultation. Breath sounds equal bilaterally. No wheezes , rales, or rhonchi. GASTROINTESTINAL: Abdomen soft, non-tender, nondistended. No hepato-splenomegaly , or palpable masses. No guarding. MUSCULOSKELETAL: Extremities without clubbing, cyanosis, or edema. No calf tenderness. Neurovascularly intact. Postsurgical site C/D/I. No hematoma observed NEUROLOGICAL: Awake and alert. Cranial nerves II through XII intact. Motor and sensory grossly within normal limits. Five out of 5 muscle strength in all muscle groups. Normal speech. Medications and IVs Current Medications Medications (Trade) Dose Ordered Sig/Kristen Route Start Time Stop Time Status Last Admin (NS Flush) 2 ml UNSCH PRN IV FLUSH 10/20/17 23:00 (NS Flush) 2 ml BID IV FLUSH 10/21/17 09:00 10/25/17 09:06 (Tylenol) 650 mg Q4H PRN PO 10/20/17 23:00 10/24/17 21:02 (Zofran Inj) 4 mg Q6H PRN IVP 10/20/17 23:00 (Narcan Inj) 0.4 mg UNSCH PRN IV PUSH 10/20/17 23:00 (Jerri-Colace) 1 tab BID PO 10/21/17 09:00 10/25/17 09:06 (Milk Of Magnesia Liq) 30 ml Q12H PRN PO 10/20/17 23:00 10/22/17 21:17 (Senokot) 17.2 mg Q12H PRN PO 10/20/17 23:00 (Dulcolax Supp) 10 mg DAILY PRN RECTAL 10/20/17 23:00 (Lactulose Liq) 30 ml DAILY PRN PO 10/20/17 23:00 (Morphine Inj) 2 mg Q3H PRN IV PUSH 10/20/17 23:00 10/20/17 23:53 (D50w (Vial) Inj) 50 ml UNSCH PRN IV PUSH 10/20/17 23:00 (Glucagon Inj) 1 mg UNSCH PRN OTHER 10/20/17 23:00 (NovoLOG SUPPLEMENTAL SCALE) 1 ACHS SLIDING SCALE SQ 10/21/17 08:00 10/25/17 13:01 (Lovenox Inj) 30 mg Q24H SQ 10/22/17 08:00 10/25/17 09:04 ([place] 5-325 Mg) 1 tab Q3H PRN PO 10/21/17 09:00 10/25/17 11:31 (Morphine Inj) 3 mg Q3H PRN IV PUSH 10/21/17 09:00 (Vitamin D3) 5,000 units DAILY PO 10/22/17 09:00 10/25/17 09:06 (NovoLOG INJ) 8 units TIDAC SQ 10/23/17 17:00 10/25/17 13:00 (Levemir Inj) 12 units Q12HR SQ 10/23/17 21:00 10/25/17 09:06 Cefepime HCl 2000 mg/Sodium Chloride 100 ml @ 200 mls/hr Q12H IV 10/24/17 16:00 10/25/17 03:41 Urinary Catheter: Yes Assessment to: Continue Lei insert reason: Obstruction/Retention A/P Problem List: (1) Diabetes mellitus with hyperglycemia ICD Code: E11.65 - Type 2 diabetes mellitus with hyperglycemia (2) Hip fracture, right ICD Code: S72.001A - Fracture of unspecified part of neck of right femur, initial encounter for closed fracture Status: Acute (3) FARZANEH (acute kidney injury) ICD Code: N17.9 - Acute kidney failure, unspecified Status: Acute (4) Low grade fever ICD Code: R50.9 - Fever, unspecified Plan: Patient has been having a temperature elevation with a T-max of 100.8 since 10/22. Urinalysis ordered and positive for Leukocyte esterase increased RBCs, increased WBCs, urine bacteria and urine mucus. Urine culture did not show any growth in 24 hours however Repeat urinalysis with catheterized urine to avoid contamination. We will check a chest x-ray. Start empiric IV Rocephin until UTI ruled out or ruled in. The patient will need to be 24 hours fever free prior to be able to be discharged. 10/24 consult infectious disease, the patient still having low-grade temp with worsening leukocytosis. 10/25 leukocytosis much improved. Infectious disease consultation recommendations are appreciated. Low-grade fever likely secondary from urinary retention. Lei catheter was inserted. Patient was also placed on IV cefepime with resolutions of low-grade fevers. Discussed the case with Dr. Merrill who recommends discontinuation of IV cefepime and starting on Ceftin. (5) Urinary retention ICD Code: R33.9 - Retention of urine, unspecified Status: Acute Plan: 600 cc of urine drained yesterday. Lei catheter inserted. I will discharge the patient to SNF with a Lei catheter and to follow-up with urology as an outpatient. Start the patient on Flomax 0.4 mg p.o. daily. Check renal us - r/o hydronephrosis. Assessment and Plan Assessment/plan: 1. Right femoral neck fracture Hip x-ray significant for subcapital right femoral neck fracture Orthopedic surgery consulted, appreciate assistance Morphine for pain The patient is status post right hip hemiarthroplasty. Continue pain control as per orthopedic surgery. Weightbearing as tolerated. 10/23 Patient cleared to be discharged by orthopedic surgery. fu recommendations. 2. Diabetes mellitus Holding home oral anti-hyperglycemics Sinus scale insulin Monitor blood glucose 10/21 blood sugar is severely elevated in the 300s. Start the patient on basal bolus therapy with insulin Levemir and prandial insulin NovoLog. 10/23 Hemoglobin A1c 10.5. Diabetes uncontrolled. Blood sugar still severely elevated in the 300s range. Blood sugar still severely elevated. I will increase insulin Levemir and prandial NovoLog dose for target blood sugar less than 180. 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 10/24 level blood sugar with blood sugar at 80 mm of 97, blood sugar at noon in the 300s range. Continue same dose of insulin Levemir and prandial insulin NovoLog. Continue SSI with insulin NovoLog. 10/25 blood sugars better controlled. Continue basal bolus therapy with insulin Levemir and prandial insulin NovoLog. 3. Acute kidney injury on chronic kidney disease As per review of records creatinine 1.50 in 2017. Back in 2012 patient had a normal creatinine of 0.8. Suspect there is some degree of acute kidney injury which is improving since creatinine trended down from 1.65-1.39. Continue to monitor BMP, STI's and O's and avoid nephrotoxins. Resolved after IV fluid administration. FEN Electrolytes: Monitor and replete when necessary Lovenox subcu as per orthopedic surgery for DVT prophylaxis. Discharge Planning Pending stabilization of blood sugars and resolution of low grade fever. Problem Qualifiers (1) Diabetes mellitus with hyperglycemia: Qualified Codes: E11.65 - Type 2 diabetes mellitus with hyperglycemia; Z79.4 - [facility] (current) use of insulin (2) Hip fracture, right: Qualified Codes: S72.001A - Fracture of unspecified part of neck of right femur , initial encounter for closed fracture Rosendo Yañez MD Oct 25, 2017 10:08
[2017-10-25] MEDS: ACETAMINOPHEN/HYDROcodone 325 MG/5 MG TAB PO PRN ×2 (11:31→18:16)
[2017-10-25 12:00] VITALS: BP 151/71; PULSE 89; RESP 18; TEMP 96.9; O2SAT 97
--- NOTE | 2017-10-25 13:51 | HHI.IDPN ---
Subjective Subjective Remarks Patient is an 87-year-old male, presented to the hospital for further evaluation of right hip pain. He apparently fell about 3 weeks ago. He has had persistent pain since, and has been having difficulty ambulating. On presentation the emergency room he was found to have a partially displaced right femoral neck fracture. Patient underwent surgery on October 21 and had right hip hemiarthroplasty. Starting October 22 he's been having some low- grade temps. Denies any respiratory complaint. No nausea or vomiting or diarrhea. Patient had a Crawford postop, and this was removed. However he had some urinary retention and the Crawford was reinserted, but removed yesterday. Patient currently is having difficulty voiding. Chest x-ray did not show any infiltrate. Urinalysis did show pyuria, but the culture is negative. Patient had Ancef perioperatively. Patient is currently on Rocephin. His WBC is mildly elevated. Patient stated that he has had prostate problem and sometimes has difficulty urinating. Infectious disease consultation has been requested to evaluate the patient with low-grade temps. Notes reviewed Temps better Has urinary retention Crawford placed WBC down to normal Repeat UA better UC negative No new Complaints Antibiotics Current Medications Cefepime Medications (Trade) Dose Ordered Sig/Kristen Route Start Time Stop Time Status Last Admin (NS Flush) 2 ml UNSCH PRN IV FLUSH 10/20/17 23:00 (NS Flush) 2 ml BID IV FLUSH 10/21/17 09:00 10/25/17 09:06 (Tylenol) 650 mg Q4H PRN PO 10/20/17 23:00 10/24/17 21:02 (Zofran Inj) 4 mg Q6H PRN IVP 10/20/17 23:00 (Narcan Inj) 0.4 mg UNSCH PRN IV PUSH 10/20/17 23:00 (Jerri-Colace) 1 tab BID PO 10/21/17 09:00 10/25/17 09:06 (Milk Of Magnesia Liq) 30 ml Q12H PRN PO 10/20/17 23:00 10/22/17 21:17 (Senokot) 17.2 mg Q12H PRN PO 10/20/17 23:00 (Dulcolax Supp) 10 mg DAILY PRN RECTAL 10/20/17 23:00 (Lactulose Liq) 30 ml DAILY PRN PO 10/20/17 23:00 (Morphine Inj) 2 mg Q3H PRN IV PUSH 10/20/17 23:00 10/20/17 23:53 (D50w (Vial) Inj) 50 ml UNSCH PRN IV PUSH 10/20/17 23:00 (Glucagon Inj) 1 mg UNSCH PRN OTHER 10/20/17 23:00 (NovoLOG SUPPLEMENTAL SCALE) 1 ACHS SLIDING SCALE SQ 10/21/17 08:00 10/25/17 13:01 (Lovenox Inj) 30 mg Q24H SQ 10/22/17 08:00 10/25/17 09:04 (Paton 5-325 Mg) 1 tab Q3H PRN PO 10/21/17 09:00 10/25/17 11:31 (Morphine Inj) 3 mg Q3H PRN IV PUSH 10/21/17 09:00 (Vitamin D3) 5,000 units DAILY PO 10/22/17 09:00 10/25/17 09:06 (NovoLOG INJ) 8 units TIDAC SQ 10/23/17 17:00 10/25/17 13:00 (Levemir Inj) 12 units Q12HR SQ 10/23/17 21:00 10/25/17 09:06 Cefepime HCl 2000 mg/Sodium Chloride 100 ml @ 200 mls/hr Q12H IV 10/24/17 16:00 10/25/17 03:41 Lines PIV Past Medical History Diabetes mellitus Patient states he's had prostate problem Past Surgical History Hernia repair x 2 Allergies: Coded Allergies: No Known Allergies (Verified Allergy, Unknown, 10/20/17) Objective . Vital Signs Date Time Temp Pulse Resp B/P (MAP) Pulse Ox O2 Delivery O2 Flow Rate FiO2 10/25/17 12:00 96.9 89 18 151/71 (97) 97 10/25/17 08:00 98.8 77 18 133/63 (86) 96 10/25/17 07:30 Room Air 10/25/17 00:00 98.0 77 15 135/77 (96) 98 10/24/17 20:01 98.9 77 15 125/62 (83) 98 10/24/17 16:00 98.1 85 17 134/67 (89) 98 10/25/17 10/25/17 10/26/17 15:00 23:00 07:00 Bladder Scan Volume Amount 415 ml . Laboratory Tests Test 10/24/17 04:12 10/25/17 06:34 White Blood Count 12.2 TH/MM3 8.9 TH/MM3 Red Blood Count 3.85 MIL/MM3 3.57 MIL/MM3 Hemoglobin 11.8 GM/DL 11.0 GM/DL Hematocrit 34.2 % 31.6 % Mean Corpuscular Volume 89.0 FL 88.5 FL Mean Corpuscular Hemoglobin 30.8 PG 30.8 PG Mean Corpuscular Hemoglobin Concent 34.5 % 34.8 % Red Cell Distribution Width 13.1 % 13.0 % Platelet Count 199 TH/MM3 190 TH/MM3 Mean Platelet Volume 10.0 FL 9.0 FL Neutrophils (%) (Auto) 75.8 % 75.4 % Lymphocytes (%) (Auto) 14.0 % 13.5 % Monocytes (%) (Auto) 8.7 % 9.0 % Eosinophils (%) (Auto) 0.7 % 1.3 % Basophils (%) (Auto) 0.8 % 0.8 % Neutrophils # (Auto) 9.3 TH/MM3 6.7 TH/MM3 Lymphocytes # (Auto) 1.7 TH/MM3 1.2 TH/MM3 Monocytes # (Auto) 1.1 TH/MM3 0.8 TH/MM3 Eosinophils # (Auto) 0.1 TH/MM3 0.1 TH/MM3 Basophils # (Auto) 0.1 TH/MM3 0.1 TH/MM3 CBC Comment DIFF FINAL DIFF FINAL Differential Comment Laboratory Tests Test 10/24/17 04:12 10/25/17 06:34 Blood Urea Nitrogen 26 MG/DL 27 MG/DL Creatinine 1.18 MG/DL 1.00 MG/DL Random Glucose 97 MG/DL 152 MG/DL Calcium Level 8.9 MG/DL 9.0 MG/DL Sodium Level 136 MEQ/L 136 MEQ/L Potassium Level 3.9 MEQ/L 3.9 MEQ/L Chloride Level 100 MEQ/L 100 MEQ/L Carbon Dioxide Level 29.8 MEQ/L 30.0 MEQ/L Anion Gap 6 MEQ/L 6 MEQ/L Estimat Glomerular Filtration Rate 58 ML/MIN 71 ML/MIN Total Protein 6.0 GM/DL Albumin 2.2 GM/DL Phosphorus Level 2.8 MG/DL Magnesium Level 2.1 MG/DL Alkaline Phosphatase 56 U/L Aspartate Amino Transf (AST/SGOT) 17 U/L Alanine Aminotransferase (ALT/SGPT) 15 U/L Total Bilirubin 0.6 MG/DL Microbiology Date/Time Source Procedure Growth Status 10/24/17 14:50 Urine Catheterized Urine Urine Culture - Preliminary NO GROWTH IN 24 HOURS. Resulted 10/22/17 17:20 Urine Random Urine Urine Culture - Final NO GROWTH IN 48 HOURS. Complete Imaging Last Impressions Chest X-Ray 10/23/17 0000 Signed Impressions: Service Date/Time: Monday, October 23, 2017 15:42 - CONCLUSION: No acute disease. No significant change has occurred. Ish Ceron MD Hip and Pelvis X-Ray 10/21/17 0851 Signed Impressions: Service Date/Time: Saturday, October 21, 2017 09:24 - CONCLUSION: 1. Expected postsurgical changes right total hip arthroplasty. 2. Please note that there is a 5 mm lucency at the interface between the proximal medial femoral shaft component and bone; this configuration can serve as a baseline. Tristan Figueroa MD Physical Exam GENERAL: awake and alert, not in respiratory distress. Up in chair SKIN: Warm and dry. No generalized rash. HEAD: Atraumatic. Normocephalic. No temporal wasting, or tenderness. EYES: [place] conjunctiva. No petechia or hemorrhage. Pupils equal, round and reactive to light. Extraocular movements full and intact. No scleral icterus. No injection or drainage. EARS, NOSE AND THROAT: Nose without bleeding or purulent nasal discharge. No sinus tenderness. Mucous membranes pink and moist. No oral lesions noted. NECK: Trachea midline. Supple and not tender, no meningeal signs CARDIOVASCULAR: Regular rate and rhythm. No murmurs, rubs or gallops heard RESPIRATORY: Clear to auscultation. Breath sounds equal bilaterally. No rales , wheezing or rhonchi ABDOMEN: Soft, mildly distended, tender in suprapubic region, with fullness. Bowel sounds present and normoactive. No guarding. No rebound. No organomegaly. EXTREMITIES: No clubbing, cyanosis, or edema. Has immobilizer in his RLE. Incision R hip is dry, no drainage or redness. No L calf tenderness. Well perfused and warm. NEUROLOGICAL: Awake and alert. Cranial nerves grossly intact. Motor grossly within normal limits. PSYCHIATRIC: Normal affect, calm and cooperative. LINE: No evidence of infection, IV sites look ok : Crawford in place, has sediment Assessment & Plan Remarks IMPRESSION Low grade temps likely due to source - has urinary retention - UA with pyuria - UC negative because he has been on Abx S/P R hip hemiarthroplasty RECOMMENDATION Continue crawford Change Abx to po - Ceftin x 14 days renal US to complete work-up If ok, and no fever, should be able to D/C Follow temps Monitor progress D/W Vickie Tello MD Oct 25, 2017 13:50
[2017-10-25 16:00] VITALS: BP 141/63; PULSE 90; RESP 18; TEMP 96.9; O2SAT 96
[2017-10-25] MEDS: CEFUROXIME AXETIL 500 MG TAB PO SCH ×2 (18:21→20:15)
--- NOTE | 2017-10-25 19:20 | RADRPT ---
EXAM DATE/TIME: 10/25/2017 18:48 [facility] COMPARISON: No previous studies available for comparison. INDICATIONS : Abnormal labs. MEDICAL HISTORY : Inguinal hernia. Diabetes. Fever. Prostate cancer. SURGICAL HISTORY : Inguinal hernia repair. ENCOUNTER: Initial ACUITY: 1 day PAIN SCORE: 0/10 LOCATION: Bilateral flank MEASUREMENTS: RIGHT KIDNEY: 12.1 x 5.7 x 4.5 cm LEFT KIDNEY: 11.5 x 4.7 x 5.1 cm FINDINGS: Ultrasound of the kidneys demonstrate normal size shape and echogenicity. No hydronephrosis or mass l esions are identified. There is an area of cortical scarring in the midpole the right kidney. Bilater al renal cysts are present the largest measuring 1.6 cm in the midpole on the left. A Lei catheter is present within the bladder which does not allow for evaluation. CONCLUSION: 1. No evidence of stone or obstruction. Carlos Olea MD on October 25, 2017 at 19:18 Board Certified Radiologist. This report was verified electronically.
[2017-10-25 20:00] VITALS: BP 114/56; PULSE 87; RESP 15; TEMP 98.8; O2SAT 95
[2017-10-25] MEDS: MAGNESIUM HYDROXIDE SUSP 30 ML CUP PO PRN (20:15)
[2017-10-26] VITALS: BP 115/58; PULSE 76; RESP 15; TEMP 96.4; O2SAT 98
--- NOTE | 2017-10-26 06:08 | PD.ORT.PN ---
Subjective Subjective Remarks Resting comfortably. Afebrile. Objective Vitals Vital Signs Date Time Temp Pulse Resp B/P (MAP) Pulse Ox O2 Delivery O2 Flow Rate FiO2 10/26/17 00:00 96.4 76 15 115/58 (77) 98 10/25/17 20:00 98.8 87 15 114/56 (75) 95 10/25/17 16:00 96.9 90 18 141/63 (89) 96 10/25/17 12:00 96.9 89 18 151/71 (97) 97 10/25/17 08:00 98.8 77 18 133/63 (86) 96 10/25/17 07:30 Room Air I/O 10/25/17 10/25/17 10/25/17 10/26/17 10/26/17 10/26/17 07:00 15:00 23:00 07:00 15:00 23:00 Intake Total 600 ml 600 ml Output Total 300 ml 450 ml 450 ml Balance -300 ml 150 ml 150 ml Intake Oral 600 ml 600 ml Output Urine Total 300 ml 450 ml 450 ml Bladder Scan Volume Amount 415 ml 415 ml # Bowel Movements 0 Result Diagram: 10/25/17 0634 10/25/17 0634 Imaging Last 24 hours Impressions Chest X-Ray 10/20/172026 Signed Impressions: Service Date/Time: September 20:25 - CONCLUSION: 1. No acute abnormality or significant interval change. Abhinav Diaz MD Procedures Right hip hemiarthroplasty [place] 10/21/17 Objective Remarks Right upper extremity slight tenderness with motion of right shoulder. Skin is intact. No pain with elbow or wrist range of motion. Distally intact sensation good capillary refills. Left upper extremity full range of motion neurovascularly intact Left lower extremity: Full range of motion and neurovascularly intact Right lower extremity: Clean dry dressings intact. Incision healing well. No erythema. Knee immobilizer in place. Distally intact sensation and good capillary refills Assessment & Plan Problem List: (1) Hip fracture, right ICD Codes: S72.001A - Fracture of unspecified part of neck of right femur, initial encounter for closed fracture Status: Acute Qualifiers: Qualified Codes: S72.001A - Fracture of unspecified part of neck of right femur, initial encounter for closed fracture (2) FARZANEH (acute kidney injury) ICD Codes: N17.9 - Acute kidney failure, unspecified Status: Acute (3) Diabetes mellitus with hyperglycemia ICD Codes: E11.65 - Type 2 diabetes mellitus with hyperglycemia Qualifiers: Qualified Codes: E11.65 - Type 2 diabetes mellitus with hyperglycemia; 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 Beginning 2017 begin adding light coating of bacitracin over incision with Prim[place] Incentive spirometry Lovenox Discharge to rehabilitation when bed available Follow-up Dr. Hudson or [place] in 2 weeks Shahid Crump Jr. Oct 26, 2017 06:08
[2017-10-26] MEDS: INSULIN ASPART 1,000 UNITS/10 ML VIAL SQ SCH ×2 (07:35→11:53)
[2017-10-26] MEDS: INSULIN ASPART SUPPLEMENTAL SCALE SQ SCH ×2 (07:35→11:54)
[2017-10-26 08:00] VITALS: BP 137/62; PULSE 96; RESP 18; TEMP 98.6; O2SAT 96
[2017-10-26] MEDS: DOCUSATE SODIUM 50 MG/SENNA 8.6 MG TAB PO SCH (08:05)
[2017-10-26] MEDS: CHOLECALCIFEROL (VIT D3) 5000 UNIT CAP PO SCH (08:05)
[2017-10-26] MEDS: ENOXAPARIN SODIUM 30 MG/0.3 ML SYRINGE SQ SCH (08:05)
[2017-10-26] MEDS: ACETAMINOPHEN/HYDROcodone 325 MG/5 MG TAB PO PRN ×2 (08:05→11:52)
[2017-10-26] MEDS: SODIUM CHLORIDE 0.9% FLUSH 10 ML FLUSH IV FLUSH SCH (08:05)
[2017-10-26] MEDS: CEFUROXIME AXETIL 500 MG TAB PO SCH (08:05)
[2017-10-26] MEDS: INSULIN DETEMIR 100 UNITS/ML VIAL SQ SCH (08:06)
[2017-10-26 11:46] VITALS: BP 109/58; PULSE 85; RESP 18; TEMP 96.6; O2SAT 97
[2017-10-26] MEDS ORDERED: LEVEMIR SQ (12:59)
[2017-10-26] MEDS ORDERED: CEFU1TAB20 PO (13:08)
[2017-10-26] MEDS ORDERED: TAMS5CAP PO (13:08)
--- NOTE | 2017-10-26 13:08 | HHI.DCPOC ---
Discharge Care Plan Diagnosis: (1) Diabetes mellitus with hyperglycemia (2) Low grade fever (3) FARZANEH (acute kidney injury) (4) Hip fracture, right (5) Urinary retention Goals to Promote Your Health * To prevent worsening of your condition and complications * To maintain your health at the optimal level Directions to Meet Your Goals Take your medications as prescribed Follow your dietary instruction Follow activity as directed Keep your appointments as scheduled Take your immunizations and boosters as scheduled If your symptoms worsen call your PCP, if no PCP go to Urgent Care Center or Emergency Room Smoking is Dangerous to Your Health. Avoid second hand smoke Call the 24-hour hour crisis hotline for domestic abuse at Rosendo Yañez MD Oct 26, 2017 13:08
--- NOTE | 2017-10-26 13:21 | HHI.DS ---
Discharge Summary Admission Date Oct 20, 2017 at 21:45 Discharge Date: Oct 26, 2017 Admitting Diagnosis right hip fracture (1) Diabetes mellitus with hyperglycemia ICD Code: E11.65 - Type 2 diabetes mellitus with hyperglycemia Diagnosis: Principal Status: Resolved (2) Hip fracture, right ICD Code: S72.001A - Fracture of unspecified part of neck of right femur, initial encounter for closed fracture Diagnosis: Principal Status: Acute (3) FARZANEH (acute kidney injury) ICD Code: N17.9 - Acute kidney failure, unspecified Diagnosis: Principal Status: Resolved (4) Low grade fever ICD Code: R50.9 - Fever, unspecified Diagnosis: Principal Status: Resolved (5) Urinary retention ICD Code: R33.9 - Retention of urine, unspecified Diagnosis: Principal Status: Acute Procedures Right hip hemiarthroplasty Brief History - From Admission 87-year-old male with past medical history significant for diabetes mellitus presents to the emergency department for evaluation of right hip pain. Approximately 3 weeks ago, the patient was working in his yard with a wheelbarrow when he tripped and fell onto his right side. The patient reports that he has been able to ambulate however only with a 4 wheeled walker. He complains of significant pain in his right hip when going from sitting to standing or standing to sitting. Denies chest pain or shortness of breath. No nausea/vomiting/diarrhea. CBC/BMP: 10/25/17 0634 10/25/17 0634 Significant Findings Laboratory Tests Test 10/24/17 04:12 10/24/17 14:50 10/25/17 06:34 White Blood Count 12.2 TH/MM3 (4.0-11.0) Red Blood Count 3.85 MIL/MM3 (4.50-5.90) 3.57 MIL/MM3 (4.50-5.90) Hemoglobin 11.8 GM/DL (13.0-17.0) 11.0 GM/DL (13.0-17.0) Hematocrit 34.2 % (39.0-51.0) 31.6 % (39.0-51.0) Neutrophils (%) (Auto) 75.8 % (16.0-70.0) 75.4 % (16.0-70.0) Monocytes (%) (Auto) 8.7 % (0.0-8.0) 9.0 % (0.0-8.0) Neutrophils # (Auto) 9.3 TH/MM3 (1.8-7.7) Monocytes # (Auto) 1.1 TH/MM3 (0-0.9) Blood Urea Nitrogen 26 MG/DL (7-18) 27 MG/DL (7-18) Estimat Glomerular Filtration Rate 58 ML/MIN (>89) 71 ML/MIN (>89) Urine Protein 30 mg/dL (NEG-TRACE) Urine Glucose (UA) 300 mg/dL (NEG) Urine Occult Blood MOD (NEG) Urine RBC 6 /hpf (0-3) Urine Bacteria RARE /hpf (NONE) Urine Mucus FEW /lpf (OCC) Random Glucose 152 MG/DL (74-106) Total Protein 6.0 GM/DL (6.4-8.2) Albumin 2.2 GM/DL (3.4-5.0) Imaging Last Impressions Renal Ultrasound 10/25/17 0000 Signed Impressions: Service Date/Time: Wednesday, October 25, 2017 18:48 - CONCLUSION: 1. No evidence of stone or obstruction. Carlos Olea MD Chest X-Ray 10/23/17 0000 Signed Impressions: Service Date/Time: Monday, October 23, 2017 15:42 - CONCLUSION: No acute disease. No significant change has occurred. Ish Ceron MD Hip and Pelvis X-Ray 10/21/17 0851 Signed Impressions: Service Date/Time: Saturday, October 21, 2017 09:24 - CONCLUSION: 1. Expected postsurgical changes right total hip arthroplasty. 2. Please note that there is a 5 mm lucency at the interface between the proximal medial femoral shaft component and bone; this configuration can serve as a baseline. Tristan Figueroa MD PE at Discharge GENERAL: male lying in bed SKIN: No rashes, ecchymoses or lesions. Cool and dry. HEAD: Atraumatic. Normocephalic. No temporal or scalp tenderness. EYES: Pupils equal round and reactive. Extraocular motions intact. No scleral icterus. No injection or drainage. ENT: Nose without bleeding, purulent drainage or septal hematoma. Throat without erythema, tonsillar hypertrophy or exudate. Uvula midline. Airway patent. NECK: Trachea midline. No JVD or lymphadenopathy. Supple, nontender, no meningeal signs. CARDIOVASCULAR: Regular rate and rhythm without murmurs, gallops, or rubs. RESPIRATORY: Clear to auscultation. Breath sounds equal bilaterally. No wheezes , rales, or rhonchi. GASTROINTESTINAL: Abdomen soft, non-tender, nondistended. No hepato-splenomegaly , or palpable masses. No guarding. MUSCULOSKELETAL: Extremities without clubbing, cyanosis, or edema. No calf tenderness. Neurovascularly intact. Postsurgical site C/D/I. No hematoma observed NEUROLOGICAL: Awake and alert. Cranial nerves II through XII intact. Motor and sensory grossly within normal limits. Five out of 5 muscle strength in all muscle groups. Normal speech. Pt update on day of discharge Patient denies any complaints. Dc to SNF and fu with urology for urinary retention treatment. Pt Condition on Discharge: Stable Discharge Disposition: Discharge to SNF Discharge Time: > 30 minutes Discharge Instructions DIET: Follow Instructions for: As Tolerated, No Restrictions, Diabetic Diet Activities you can perform: See Additionl Instruction Other Activity Instructions: as per Pt and ortho instructions Weightbearing as tolerated with posterior hip precautions Knee immobilizer while in bed Follow up Referrals: Orthopedics - 2 Weeks @ [facility] with Alejandro Lopez MD PCP Follow-up - 2 Weeks Urology - 3-5 Days New Medications: Calcium Carbonate-Vitamin D (Calcium 600+D 200) 600-200 Mg-Unit Tab 1 TAB PO BID for Nutritional Supplement, #90 TAB 0 Refills Ergocalciferol (Ergocalciferol) 50,000 Unit Cap 36481 UNITS PO Q7D for Nutritional Supplement, #8 CAP Hydrocodone-Acetaminophen ([place]) 5 Mg-325 Mg Tab 1 TAB PO Q4H PRN for PAIN, #50 TAB 0 Refills Insulin Detemir Inj (Levemir Inj) 1,000 unit/ 10 ML Vial 10 UNITS SQ BID for Blood Sugar Management, #1 VIAL 0 Refills Do not mix with any other Insulin. Rivaroxaban (Xarelto) 10 Mg Tab 10 MG PO DAILY for Blood Clot Prevention, #14 TAB 0 Refills Walker/Adult/Folding (Walker/Adult/Folding) 1 Mis Mis EA .XX DIRECTED, #1 0 Refills Cefuroxime (Cefuroxime) 500 Mg Tab 500 MG PO Q12HR for Infection, #28 TAB Tamsulosin (Flomax) 0.4 Mg Cap 0.4 MG PO DAILY for urinary retention, #30 CAP Continued Medications: Glimepiride (Glimepiride) 4 Mg Tab 4 MG PO BIDAC for Blood Sugar Management, #60 TAB 0 Refills Metformin (Metformin) 500 Mg Tab 1000 MG PO BID for Blood Sugar Management, #60 TAB 0 Refills With meals Discontinued Medications: Insulin Human Regular Inj (Novolin R Inj) 1,000 Unit/10 Ml Vial 7 UNITS SQ BID for Blood Sugar Management, #1 INJECTION 0 Refills Rosendo Yañez MD Oct 26, 2017 13:21
[2017-10-26] MEDS ORDERED: TAMSULOSIN HCL 0.4 MG CAP PO SCH (15:00)
== END 2017-10-26 15:26 | DRG 470 ==
LOC: NEPE 19:56 → NEDA 21:45 → N06A 23:25
PROVIDERS: ADMIT Hospitalist; ATTEND Hospitalist
PROC: 0SRR0JA Replacement of Right Hip Joint, Femoral Surface with Synthetic Substitute, Uncemented, Open Approach (ICD-10-PCS; principal; 2017-10-21 07:40)
PROC: 0T9B70Z Drainage of Bladder with Drainage Device, Via Natural or Artificial Opening (ICD-10-PCS; 2017-10-24)
DX: S72.011A Unspecified intracapsular fracture of right femur, initial encounter for closed fracture (principal); N17.9 Acute kidney failure, unspecified; E11.22 Type 2 diabetes mellitus with diabetic chronic kidney disease; E11.65 Type 2 diabetes mellitus with hyperglycemia; N18.9 Chronic kidney disease, unspecified; W01.0XXA Fall on same level from slipping, tripping and stumbling without subsequent striking against object, initial encounter; Y93.H2 Activity, gardening and landscaping; Y92.007 Garden or yard of unspecified non-institutional (private) residence as the place of occurrence of the external cause; Z79.4 Long term (current) use of insulin; Z82.49 Family history of ischemic heart disease and other diseases of the circulatory system; R33.9 Retention of urine, unspecified; H91.90 Unspecified hearing loss, unspecified ear; R50.9 Fever, unspecified
CPT/HCPCS: 36415; 71045; 73502; 76775; 80048; 80053; 81001; 82306; 82948; 83036; 83735; 84100; 85025; 85610; 85730; 87086; 93005; 96374; 96375; C1776; J0690; J0692; J0696; J1580; J1650; J1815; J2270; J2370; J2405; J2710; J3010; J3370; J7030; J7120; L1830

== ENCOUNTER 2018-06-01 14:04 | Inpatient (IN) ==
[2018-06-01] MEDS ORDERED: Piperacil/Tazo 4.5 GM Premix 4.5 GM/100 ML BAG IV.SIG STA (14:26)
[2018-06-01] MEDS ORDERED: HYDROmorphone PF Inj 2 MG/ML Vial IV.PUSH ONE (14:26)
[2018-06-01 14:56] LABS: Baso % (Auto) 0.6 % (0.0-2.0); Eos % (Auto) 0.1 % (0.0-4.0); Hematocrit 35.1 % (39.0-51.0); Hemoglobin 11.9 gm/dL (13.0-17.0); Lymph # (Auto) 0.6 th/mm3 (1.0-4.8); Lymph % (Auto) 7.1 % (9.0-44.0); Mean Corpuscular HGB Conc 33.9 % (32.0-36.0); Mean Corpuscular Hemoglobin 30.8 pg (27.0-34.0); Mean Corpuscular Volume 90.9 fL (80.0-100.0); Mean Platelet Volume 9.2 fL (7.0-11.0); Mono # (Auto) 0.3 th/mm3 (0.0-0.9); Neut # (Auto) 7.1 th/mm3 (1.8-7.7); Neut % (Auto) 88.2 % (16.0-70.0); Platelet Count 173 th/mm3 (150-450); Red Blood Count 3.86 mil/mm3 (4.50-5.90); Red Cell Distribution Width 13.6 % (11.6-17.2)
[2018-06-01 15:04] LABS: Bilirubin,Urine Negative (Negative); Clarity,Urine Clear (Clear); Color,Urine Straw (Yellw/Straw); Glucose,Urine (UA) 150 mg/dL (Negative); Leukocyte Esterase,Urine Negative (Negative); Nitrite,Urine Negative (Negative); Specific Gravity,Urine 1.009 (1.002-1.035)
[2018-06-01 15:24] LABS: Alanine Aminotransferase 21 U/L (12-78); Albumin 3.5 g/dL (3.4-5.0); Anion Gap 12 meq/L (5-15); Aspartate Aminotransferase 14 U/L (15-37); Blood Urea Nitrogen 46 mg/dL (7-18); Calcium 9.3 mg/dL (8.5-10.1); Carbon Dioxide 24.4 meq/L (21.0-32.0); Chloride 101 meq/L (98-107); Glomerular Filtration Rate 21 mL/min (>89); Glucose,Random 363 mg/dL (74-106); INR 1.1 Ratio; Lipase 56 U/L (73-393); Potassium 4.6 meq/L (3.5-5.1); Prothrombin Time 10.7 sec (9.8-11.6); Sodium 137 meq/L (136-145)
[2018-06-01 15:26] LABS: Alkaline Phosphatase 219 U/L (45-117); Total Protein 7.1 g/dL (6.4-8.2)
--- NOTE | 2018-06-01 15:29 | XR ---
EXAM DATE: 06/01/2018 2:26 PM EDT AGE/SEX: 88 years / Male INDICATIONS: Left flank pain. CLINICAL DATA: This is the patient's initial encounter. Patient reports that signs and symptoms have been present for 1 day and indicates a pain score of 0/10. MEDICAL/SURGICAL HISTORY: Carcinoma, prostatic. diabetes II . hernia repair. COMPARISON: [facility] [place], CHEST SINGLE AP, 10/23/2017. . FINDINGS: 2 AP erect portable views of the chest were obtained and demonstrate no confluent infiltrates or effu sions. The heart and mediastinal structures remain within normal limits. The bony thorax is intact. O verlying electrocardiogram leads are present. Degenerative changes are again noted in the right gleno humeral joint. CONCLUSION: No acute cardiopulmonary disease. Electronically signed by: Shahid Vyas MD 06/01/2018 3:28 PM EDT
--- NOTE | 2018-06-01 15:32 | ED ---
HPI General Chief Complaint: Abdominal Pain Stated Complaint: Left Flank pain Time Seen by Provider: 06/01/18 14:11 Source: patient Mode of arrival: ambulatory Limitations: no limitations History of Present Illness HPI narrative: The patient is 88 years old and arrives from the [facility] due to abdominal pain which he states is severe. It radiates to the left upper abdomen and left flank. He reports the urge to urinate. Vomiting is reported. No fever. He states his symptoms have been present for about 3 weeks. EMS reports normal vital signs and no fever. MD complaint: Reports abdominal pain and flank pain Onset (ago): week(s) (3) Pain Consistency: constant Location: Reports LUQ, LLQ and L flank Related Data Home Medications Medication Instructions Recorded Confirmed glimepiride 1 mg PO TID 05/03/18 06/01/18 metformin 500 mg PO BID 05/03/18 06/01/18 tamsulosin 0.4 mg PO DAILY 05/03/18 06/01/18 cod liver oil 1 cap PO DAILY 06/01/18 06/01/18 insulin glargine 10 unit SUBCUT DAILY 06/01/18 06/01/18 multivit with min-folic acid 2 tab PO DAILY 06/01/18 06/01/18 omega 6-jgv-dmy-fish oil [Fish Oil] 1,000 mg PO DAILY 06/01/18 06/01/18 Allergies Allergy/AdvReac Type Severity Reaction Status Date / Time No Known Allergies Allergy Verified 06/01/18 14:22 Review of Systems ROS: all other systems reviewed are negative PMFSH Social History Social History Substance History: No History of Abuse Second Hand Smoke Exposure: No Smoking Status: Former smoker How Often Do You Have a Drink Containing Alcohol: Never Recent Travel in [place] within the Last 8 Weeks: No Recent Out of Country Travel within the Last 8 Weeks: No Immunization History Tetanus Immunization: >5 Years Hx Influenza Vaccine This Season: No Exam Narrative Exam Narrative: GENERAL: 88-year-old male well-nourished well-developed pleasant mild to moderate distress secondary to pain SKIN: Focused skin assessment warm/dry. HEAD: Atraumatic. Normocephalic. EYES: Pupils equal and round. No scleral icterus. No injection or drainage. ENT: No nasal bleeding or discharge. Mucous membranes pink and moist. NECK: Trachea midline. No JVD. CARDIOVASCULAR: Regular rate and rhythm. No murmur appreciated. RESPIRATORY: No accessory muscle use. Clear to auscultation. Breath sounds equal bilaterally. GASTROINTESTINAL: Tenderness to palpation in suprapubic abdomen with general fullness concern for urinary obstruction. MUSCULOSKELETAL: No obvious deformities. No clubbing. No cyanosis. No edema. NEUROLOGICAL: Awake and alert. No obvious cranial nerve deficits. Motor grossly within normal limits. Normal speech. PSYCHIATRIC: Appropriate mood and affect; insight and judgment normal. Course Initial Documented Vital Signs Temperature 97.5 F L 06/01/18 14:14 Pulse Rate 66 06/01/18 14:14 Respiratory Rate 20 06/01/18 14:14 Blood Pressure 197/98 H 06/01/18 14:14 Pulse Oximetry 100 06/01/18 14:14 Last Documented Vital Signs Temperature 97.5 F L 06/01/18 14:14 Pulse Rate 63 06/01/18 16:09 Respiratory Rate 16 06/01/18 16:09 Blood Pressure 148/75 H 06/01/18 16:09 Pulse Oximetry 99 06/01/18 16:09 Medical Decision Making MDM Narrative Medical decision making narrative: Patient has acute kidney injury. Creatinine 1.4 from approximately 1 month ago and today it is 2.9. 1.4 L of urine was collected shortly after Lei catheter was placed and then about 30 minutes later 2 L total was collected. Obstructive uropathy is of concern. Case discussed with hospitalist service, Dr Reyna, who advised admission. CT abd/ pel added on. Zosyn dc order placed. Medical Screen Exam Complete: Yes Emergency Medical Condition: Yes Differential Diagnosis Differential Diagnosis: Constipation, Gastritis, Acute Cholecystitis, Biliary Colic, Pancreatitis, GARCIA, Hepatitis, Bowel Obstruction, Cystitis, Mesenteric Ischemia, AAA, Appendicitis, Renal Stone/Hydronephrosis, GERD, perforated viscous Medical Records Medical records reviewed: Yes I reviewed the patient's medical records. Lab Data Lab results reviewed: Yes I reviewed the patient's lab results. Lab results narrative: Renal function 1 month ago was creatinine approximately 1.4 Urinalysis shows no UTI Result diagrams: 06/01/18 14:30 06/01/18 14:30 Lab Results 06/01/18 06/01/18 06/01/18 Range/Units 14:30 14:30 14:30 WBC 8.0 (4.0-11.0) th/mm3 RBC 3.86 L (4.50-5.90) mil/mm3 Hgb 11.9 L (13.0-17.0) gm/dL Hct 35.1 L (39.0-51.0) % MCV 90.9 (80.0-100.0) fL MCH 30.8 (27.0-34.0) pg MCHC 33.9 (32.0-36.0) % RDW 13.6 (11.6-17.2) % Plt Count 173 (150-450) th/mm3 MPV 9.2 (7.0-11.0) fL Neut % (Auto) 88.2 H (16.0-70.0) % Lymph % (Auto) 7.1 L (9.0-44.0) % [place] % (Auto) 4.0 (0.0-8.0) % Eos % (Auto) 0.1 (0.0-4.0) % Baso % (Auto) 0.6 (0.0-2.0) % Neut # (Auto) 7.1 (1.8-7.7) th/mm3 Lymph # (Auto) 0.6 L (1.0-4.8) th/mm3 [place] # (Auto) 0.3 (0.0-0.9) th/mm3 Eos # (Auto) 0.0 (0.0-0.4) th/mm3 Baso # (Auto) 0.0 (0.0-0.2) th/mm3 WBC Differential . Differential Comment Auto diff final PT 10.7 (9.8-11.6) sec INR 1.1 Ratio Sodium 137 (136-145) meq/L Potassium 4.6 (3.5-5.1) meq/L Chloride 101 (98-107) meq/L Carbon Dioxide 24.4 (21.0-32.0) meq/L Anion Gap 12 (5-15) meq/L BUN 46 H (7-18) mg/dL Creatinine 2.88 H (0.60-1.30) mg/dL Estimated GFR 21 L (>89) mL/min Random Glucose 363 H (74-106) mg/dL Lactic Acid (0.4-2.0) mmol/L Calcium 9.3 (8.5-10.1) mg/dL Total Bilirubin 0.7 (0.2-1.0) mg/dL AST 14 L (15-37) U/L ALT 21 (12-78) U/L Alkaline Phosphatase 219 H (45-117) U/L Total Protein 7.1 (6.4-8.2) g/dL Albumin 3.5 (3.4-5.0) g/dL Lipase 56 L (73-393) U/L Urine Color (Yellw/Straw) Urine Clarity (Clear) Urine pH (5.0-8.5) Ur Specific [place] (1.002-1.035) Urine Protein (Neg-Trace) mg/dL Urine Glucose (UA) (Negative) mg/dL Urine Ketones (Negative) mg/dL Urine Occult Blood (Negative) Urine Nitrate (Negative) Urine Bilirubin (Negative) Urine Urobilinogen (Less than 2) mg/dL Ur Leukocyte Esterase (Negative) Urine RBC (0-3) /hpf Urine WBC (0-5) /hpf Micro UA Comment Ur Microscopic Review Urine Culture Comments 06/01/18 06/01/18 Range/Units 14:35 14:45 WBC (4.0-11.0) th/mm3 RBC (4.50-5.90) mil/mm3 Hgb (13.0-17.0) gm/dL Hct (39.0-51.0) % MCV (80.0-100.0) fL MCH (27.0-34.0) pg MCHC (32.0-36.0) % RDW (11.6-17.2) % Plt Count (150-450) th/mm3 MPV (7.0-11.0) fL Neut % (Auto) (16.0-70.0) % Lymph % (Auto) (9.0-44.0) % [place] % (Auto) (0.0-8.0) % Eos % (Auto) (0.0-4.0) % Baso % (Auto) (0.0-2.0) % Neut # (Auto) (1.8-7.7) th/mm3 Lymph # (Auto) (1.0-4.8) th/mm3 [place] # (Auto) (0.0-0.9) th/mm3 Eos # (Auto) (0.0-0.4) th/mm3 Baso # (Auto) (0.0-0.2) th/mm3 WBC Differential Differential Comment PT (9.8-11.6) sec INR Ratio Sodium (136-145) meq/L Potassium (3.5-5.1) meq/L Chloride (98-107) meq/L Carbon Dioxide (21.0-32.0) meq/L Anion Gap (5-15) meq/L BUN (7-18) mg/dL Creatinine (0.60-1.30) mg/dL Estimated GFR (>89) mL/min Random Glucose (74-106) mg/dL Lactic Acid 1.5 (0.4-2.0) mmol/L Calcium (8.5-10.1) mg/dL Total Bilirubin (0.2-1.0) mg/dL AST (15-37) U/L ALT (12-78) U/L Alkaline Phosphatase (45-117) U/L Total Protein (6.4-8.2) g/dL Albumin (3.4-5.0) g/dL Lipase (73-393) U/L Urine Color Straw (Yellw/Straw) Urine Clarity Clear (Clear) Urine pH 5.0 (5.0-8.5) Ur Specific [place] 1.009 (1.002-1.035) Urine Protein Negative (Neg-Trace) mg/dL Urine Glucose (UA) 150 H (Negative) mg/dL Urine Ketones Negative (Negative) mg/dL Urine Occult Blood Small H (Negative) Urine Nitrate Negative (Negative) Urine Bilirubin Negative (Negative) Urine Urobilinogen Less than 2 (Less than 2) mg/dL Ur Leukocyte Esterase Negative (Negative) Urine RBC 1 (0-3) /hpf Urine WBC 1 (0-5) /hpf Micro UA Comment Cath-culture not ind Ur Microscopic Review Not Reportable Urine Culture Comments Cath-cult not ind Imaging Data Radiologist's impression: Chest X-Ray 06/01/18 14:26 CONCLUSION: No acute cardiopulmonary disease. Discharge Plan Discharge Disposition Patient Disposition: 30 Still Patient Physicians Team ED Provider: Quinten Ortiz Primary Care Provider: [facility],Physician 's Attending Provider: Eunice Reyna Status ED Status: Admitted Observation Patient
[2018-06-01] MEDS ORDERED: Dextrose 50% in Water 50 ML Vial IV.PUSH PRN (16:29)
--- NOTE | 2018-06-01 16:38 | P.HPIM ---
History of Present Illness Primary Care Physician: [facility] Chief Complaint: lower abdominal pain History of Present Illness: patient is a 88 y/o male with history of diabetes who presented to ER with abdominal pain. he says that he's had pain to the left flank for a few weeks. he also reports some pain to the lower abdomen.he denies any dysuria and gross hematuria. he denies any fever or chills. upon his arrival to ER, crawford cath was inserted and 1400 ml of urine was obtained after which the patient had instant relief. Review of Systems All other systems reviewed negative except as stated in HPI PMFSH - History History Provided By: Patient - Medical History Medical History: Medical History (Last Reviewed 06/01/18 @ 14:21 by Jennifer Huerta) Diabetes type 2, uncontrolled Enlarged prostate [place] (hard of hearing) - Surgical History Surgical History: Surgical History (Last Reviewed 06/01/18 @ 14:21 by Jennifer Huerta) History of right hip replacement - Family History Family History: Family History (Last Updated 06/01/18 @ 16:35 by Eunice Reyna MD) Other No pertinent family history - Tobacco History Second Hand Smoke Exposure: No Smoking Status: Former smoker - Alcohol History How Often Do You Have a Drink Containing Alcohol: Never - Substance Use History Substance History: No History of Abuse - Travel History Recent Travel in the [place] Within the Last 8 Weeks: No Recent Travel Out of the Country Within the Last 8 Weeks: No - Immunization History Tetanus Immunization: >5 Years Hx Influenza Vaccine This Season: No Medications and Allergies Active Medications: Active Medications Dextrose (D50w Vial) 50 ml IV.PUSH UNSCH PRN PRN Reason: PER HYPOGLYCEMIA PROTOCOL Glucagon (Glucagon Inj) 1 mg OTHER PRN PRN PRN Reason: for Hypoglycemia Protocol Sodium Chloride (Ns Inj) 1,000 mls @ 70 mls/hr IV.CONT .[id number] MARCIAL Insulin Aspart (Novolog Insulin Correctional Sugar Inj) 0 unit SQ ACHS MARCIAL; Protocol Non-Formulary Medication (Insulin Glargine [Insulin Glargine]) 10 unit SQ DAILY MARCIAL Tamsulosin HCl (Flomax) 0.4 mg PO DAILY MARCIAL Allergies Allergy/AdvReac Type Severity Reaction Status Date / Time No Known Allergies Allergy Verified 06/01/18 14:22 Home Medications Medication Instructions Recorded Confirmed Type glimepiride 1 mg PO TID 05/03/18 06/01/18 History metformin 500 mg PO BID 05/03/18 06/01/18 History tamsulosin 0.4 mg PO DAILY 05/03/18 06/01/18 History cod liver oil 1 cap PO DAILY 06/01/18 06/01/18 History insulin glargine 10 unit SUBCUT DAILY 06/01/18 06/01/18 History multivit with min-folic acid 2 tab PO DAILY 06/01/18 06/01/18 History omega 9-bci-wul-fish oil [Fish Oil] 1,000 mg PO DAILY 06/01/18 06/01/18 History Exam Vital signs: Vital Signs 06/01/18 14:14 06/01/18 14:40 06/01/18 16:09 Temperature 97.5 F L Pulse Rate 66 66 63 Respiratory Rate 20 16 Blood Pressure 197/98 H 148/75 H Pulse Oximetry 100 100 99 Intake & Output 05/31/18 06/01/18 06/01/18 18:59 06:59 18:59 Intake Total 100 / 100 Output Total 1800 / 1800 Balance -1700 / -1700 Weight 70.307 kg Intake: IV 100 / 100 Zosyn 4.5 GM Premix 4.5 gm In 100 / 100 100 ml @ 200 mls/hr IV.SIG STAT STA Rx#:[id number] Output: Urine Amount (Catheter) 1800 / 1800 Indwelling Urethral Catheter 1800 / 1800 - Constitutional no acute distress - Routine HEENT Exam Eye: Present: PERRL - Routine Neck Exam Present: supple - Routine Respiratory Exam Present: CTA bilaterally - Routine Cardiovascular Exam Present: RRR - Routine Abdominal Exam Present: soft - Routine Extremities Exam Comments: bilateral pedal edema. - Routine Neurological Exam Present: alert, oriented X3 Results - Labs CBC & Chem 7: 06/01/18 14:30 06/01/18 14:30 Labs: Short CBC 06/01/18 Range/Units 14:30 WBC 8.0 (4.0-11.0) th/mm3 Hgb 11.9 L (13.0-17.0) gm/dL Hct 35.1 L (39.0-51.0) % Plt Count 173 (150-450) th/mm3 BMP 06/01/18 14:30 Sodium 137 Potassium 4.6 Chloride 101 Carbon Dioxide 24.4 BUN 46 H Creatinine 2.88 H Calcium 9.3 Liver Function 06/01/18 Range/Units 14:30 Total Bilirubin 0.7 (0.2-1.0) mg/dL AST 14 L (15-37) U/L ALT 21 (12-78) U/L Alkaline Phosphatase 219 H (45-117) U/L Albumin 3.5 (3.4-5.0) g/dL Urine 06/01/18 Range/Units 14:45 Urine Color Straw (Yellw/Straw) Urine Clarity Clear (Clear) Urine pH 5.0 (5.0-8.5) Ur Specific [place] 1.009 (1.002-1.035) Urine Protein Negative (Neg-Trace) mg/dL Urine Glucose (UA) 150 H (Negative) mg/dL - Imaging Impressions Chest X-Ray 06/01/18 14:26 CONCLUSION: No acute cardiopulmonary disease. Caprini VTE Risk Assessment Caprini VTE Risk Assessment: Moderate/High Risk (score >= 2) Caprini Risk Assessment Model: Point Value = 1 Point Value = 2 Point Value = 3 Point Value = 5 Age 41-60 Minor surgery BMI > 25 kg/m2 Swollen legs Varicose veins or History of unexplained or recurrent spontaneous Oral contraceptives or hormone replacement Sepsis (< 1 month) Serious lung disease, including pneumonia (< 1 month) Abnormal pulmonary function Acute myocardial infarction Congestive heart failure (< 1 month) History of inflammatory bowel disease Medical patient at bed rest Age 61-74 Arthroscopic surgery Major open surgery (> 45 min) Laparoscopic surgery (> 45 min) Malignancy Confined to bed (> 72 hours) Immobilizing plaster cast Central venous access Age >= 75 History of VTE Family history of VTE Factor V Leiden Prothrombin [id number] Lupus anticoagulant Anticardiolipin antibodies Elevated serum homocysteine Heparin-induced thrombocytopenia Other congenital or acquired thrombophilia Stroke (< 1 month) Elective arthroplasty Hip, pelvis, or leg fracture Acute spinal cord injury (< 1 month) Prophylaxis Regimen: Total Risk Factor Score Risk Level Prophylaxis Regimen 0-1 Low Early ambulation 2 Moderate Order ONE of the following: *Sequential Compression Device (SCD) *Heparin 5000 units SQ BID 3-4 Higher Order ONE of the following medications: *Heparin 5000 units SQ TID *Enoxaparin/Lovenox 40 mg SQ daily (WT < 150 kg, CrCl > 30 mL/min) *Enoxaparin/Lovenox 30 mg SQ daily (WT < 150 kg, CrCl > 10-29 mL/min) *Enoxaparin/Lovenox 30 mg SQ BID (WT < 150 kg, CrCl > 30 mL/min) AND/OR *Sequential Compression Device (SCD) 5 or more Highest Order ONE of the following medications: *Heparin 5000 units SQ TID (Preferred with Epidurals) *Enoxaparin/Lovenox 40 mg SQ daily (WT < 150 kg, CrCl > 30 mL/min) *Enoxaparin/Lovenox 30 mg SQ daily (WT < 150 kg, CrCl > 10-29 mL/min) *Enoxaparin/Lovenox 30 mg SQ BID (WT < 150 kg, CrCl > 30 mL/min) AND *Sequential Compression Device (SCD) Assessment and Plan - Plan A/P - urinary retention/ FARZANEH crawford cath in place- will continue with IV fluid and Flomax. CT of the abdomen/pelvis pending. will consider urology evaluation- pending clinical course and CT of the abdomen. -diabetes mellitus; resume long-acting insulin- accu-check with SSI- hold oral hypoglycemic agents. -DVT prophylaxis with SCD's -consult PT -consult case management to assist with dc planning. Discussed Condition With: ER physician and the patient.
[2018-06-01] MEDS: Sod Chloride 0.9% Inj 1,000 ML IV.CONT SCH (17:18)
[2018-06-01] MEDS: Insulin NovoLOG Aspart Correctional Sugar Inj SQ SCH ×2 (17:47→20:58)
--- NOTE | 2018-06-01 17:48 | CT ---
EXAM DATE: 06/01/2018 3:39 PM EDT AGE/SEX: 88 years / Male INDICATIONS: Left lower quadrant pain for two weeks. CLINICAL DATA: This is the patient's initial encounter. Patient reports that signs and symptoms have been present for 2 weeks and indicates a pain score of 3/10. MEDICAL/SURGICAL HISTORY: Diabetes. . Right hip replacement. RADIATION DOSE: 6.70 CTDI (mGy) COMPARISON: No prior exams available for comparison. TECHNIQUE: Multiple contiguous axial images were obtained through the abdomen. Images were obtained using multiple row detector helical technique. Using automated exposure control and adjustment of the mA and/or kV according to patient size, radiation dose was kept as low as reasonably achievable to o btain optimal diagnostic quality images. DICOM format image data is available electronically for rev iew and comparison. FINDINGS: Lower Lungs: There is a minimal amount of pleural fluid right greater than left. There is an apparent gastric diverticulum in the left upper quadrant. There is a small amount of pericardial fluid. Coron emilie artery calcifications are noted. Liver: The liver has a homogeneous density without space-occupying lesion. There is no dilation of th e biliary tree. The gallbladder is unremarkable in appearance. There is a small amount of ascitic flu id surrounding the liver margin. Spleen: Homogeneous density without enlargement. Pancreas: Unremarkable without mass or calcification. Kidneys: Normal in size and shape. No evidence of mass or hydronephrosis. Adrenal Glands: Unremarkable. Aorta: The aorta and proximal iliac vessels are grossly unremarkable without aneurysmal dilation. Bowel/Mesentery: No oral contrast was given limiting the sensitivity of the MR for detecting bowel pa thology. There is a small amount of ascitic fluid in the pelvis. There is increased density in the me sentery. There are multiple loops of nondilated air-containing small bowel with several small air-flu id levels. There is no free air. There are multiple diverticuli in the sigmoid colon. There is a norm al air-filled appendix. Abdominal Wall: Intact. Retroperitoneum: No evidence of adenopathy in the retrocrural, para-aortic, or deep pelvic regions. Bladder: Lei catheter is present in the bladder small amount of air. The bladder is partially obsc ured. Reproductive Organs: No abnormal masses or calcifications seen. Inguinal: The inguinal region is unremarkable without evidence of adenopathy. Bony Structures: The patient is status post right hip arthroplasty with streak artifact in the pelvi s. CONCLUSION: 1. Nonspecific bowel gas pattern which could represent a mild ileus and/or gastroenteritis. There is a small amount of ascitic fluid. Mild to moderate diverticulosis is noted greatest in the sigmoid colon. There is no gross evidence of acute diverticulitis however mild diverticulitis could easily be obscured due to lack of intravenous and oral contrast which limits the sensitivity of the exam. Ther e is also streak artifact in the pelvis. 2. Anasarca. There is a small amount pericardial fluid and small amount of pleural fluid. 3. Apparent gastric diverticulum. Electronically signed by: Shahid Vyas MD 06/01/2018 5:47 PM EDT
[2018-06-02 05:51] LABS: Calcium 7.9 mg/dL (8.5-10.1); Carbon Dioxide 25.5 meq/L (21.0-32.0); Potassium 3.8 meq/L (3.5-5.1)
[2018-06-02] MEDS: Insulin NovoLOG Aspart Correctional Sugar Inj SQ SCH ×4 (09:03→21:54)
[2018-06-02] MEDS: Insulin Detemir Inj 1,000 UNIT/10 ML Vial SQ SCH (09:05)
--- NOTE | 2018-06-02 09:45 | P.PN ---
Subjective Interval history: Follow-up visit for lower abdominal and back pain with urinary retention. Patient seen and examined resting in bed comfortably in no acute distress is requesting to go home today. States that yesterday he was having severe lower abdominal and back pain when he was in to see primary care physician. Patient also experienced nausea and vomiting therefore his primary care physician called [facility] and he was transported to the emergency department. Patient is somewhat of a poor historian and cannot exactly remember if he has been consistently taking his Flomax at home. At the present time he denies any abdominal or back pain, nausea, vomiting, diarrhea, cough, shortness of breath or chest pain. Patient reports 1 regular bowel movement today. Physical Exam Vital signs: Vital Signs 06/01/18 14:14 06/01/18 14:40 06/01/18 16:09 Temperature 97.5 F L Pulse Rate 66 66 63 Respiratory Rate 20 16 Blood Pressure 197/98 H 148/75 H Pulse Oximetry 100 100 99 06/01/18 17:48 06/01/18 20:00 06/02/18 00:00 Temperature 98.1 F 98.6 F Pulse Rate 64 69 97 H Respiratory Rate 18 17 16 Blood Pressure 148/94 H 130/65 130/73 Pulse Oximetry 100 97 95 Intake & Output 06/01/18 06/02/18 06/02/18 18:59 06:59 18:59 Intake Total 100 / 100 1999 Output Total 1800 / 1800 3100 / 3100 Balance -1700 / -1700 -1100 / -1100 Weight 70.307 kg 71.7 kg Intake: IV 100 / 100 Zosyn 4.5 GM Premix 4.5 gm In 100 / 100 100 ml @ 200 mls/hr IV.SIG STAT [facility] Rx#:[id number] Oral 1999 Output: Urine 3100 / 3100 Urine Amount (Catheter) 1800 / 1800 Indwelling Urethral Catheter 1799 Narrative: GENERAL: Well-nourished, well-developed elderly male in no acute distress. SKIN: Warm and dry. HEAD: Atraumatic. Normocephalic. EYES: Pupils equal and round. No scleral icterus. No injection or drainage. ENT: No nasal bleeding or discharge. Mucous membranes pink and moist. NECK: Trachea midline. No JVD. CARDIOVASCULAR: Regular rate and rhythm. RESPIRATORY: No accessory muscle use. Clear to auscultation. Breath sounds equal bilaterally. GASTROINTESTINAL: Abdomen soft, non-tender, nondistended. Positive bowel sounds. GENITOURINARY: Lei catheter draining clear yellow urine. MUSCULOSKELETAL: Extremities without clubbing, cyanosis, or edema. No obvious deformities. NEUROLOGICAL: Awake and alert. No obvious cranial nerve deficits. Motor grossly within normal limits. Five out of 5 muscle strength in the arms and legs. Normal speech. PSYCHIATRIC: Appropriate mood and affect; insight and judgment normal. - Urinary Catheter Management Indwelling Urethral Catheter Cath placed during this visit: yes Reason for continuing: Acute urinary retention Insertion date: 06/01/18 Insertion time: 14:00 Results - Labs CBC & Chem 7: 06/01/18 14:30 06/02/18 04:16 Laboratory Results - last 24 hr 06/01/18 06/01/18 06/01/18 14:30 14:30 14:30 WBC 8.0 RBC 3.86 L Hgb 11.9 L Hct 35.1 L MCV 90.9 MCH 30.8 MCHC 33.9 RDW 13.6 Plt Count 173 MPV 9.2 Neut % (Auto) 88.2 H Lymph % (Auto) 7.1 L Morrill % (Auto) 4.0 Eos % (Auto) 0.1 Baso % (Auto) 0.6 Neut # (Auto) 7.1 Lymph # (Auto) 0.6 L [place]rill # (Auto) 0.3 Eos # (Auto) 0.0 Baso # (Auto) 0.0 WBC Differential . Differential Comment Auto diff final PT 10.7 INR 1.1 Sodium 137 Potassium 4.6 Chloride 101 Carbon Dioxide 24.4 Anion Gap 12 BUN 46 H Creatinine 2.88 H Estimated GFR 21 L POC Glucose Random Glucose 363 H Lactic Acid Calcium 9.3 Total Bilirubin 0.7 AST 14 L ALT 21 Alkaline Phosphatase 219 H Total Protein 7.1 Albumin 3.5 Lipase 56 L Urine Color Urine Clarity Urine pH Ur Specific [place] Urine Protein Urine Glucose (UA) Urine Ketones Urine Occult Blood Urine Nitrate Urine Bilirubin Urine Urobilinogen Ur Leukocyte Esterase Urine RBC Urine WBC Micro UA Comment Ur Microscopic Review Urine Culture Comments 06/01/18 06/01/18 06/01/18 14:35 14:45 17:42 WBC RBC Hgb Hct MCV MCH MCHC RDW Plt Count MPV Neut % (Auto) Lymph % (Auto) Morrill % (Auto) Eos % (Auto) Baso % (Auto) Neut # (Auto) Lymph # (Auto) [place] # (Auto) Eos # (Auto) Baso # (Auto) WBC Differential Differential Comment PT INR Sodium Potassium Chloride Carbon Dioxide Anion Gap BUN Creatinine Estimated GFR POC Glucose 275 H Random Glucose Lactic Acid 1.5 Calcium Total Bilirubin AST ALT Alkaline Phosphatase Total Protein Albumin Lipase Urine Color Straw Urine Clarity Clear Urine pH 5.0 Ur Specific [place] 1.009 Urine Protein Negative Urine Glucose (UA) 150 H Urine Ketones Negative Urine Occult Blood Small H Urine Nitrate Negative Urine Bilirubin Negative Urine Urobilinogen Less than 2 Ur Leukocyte Esterase Negative Urine RBC 1 Urine WBC 1 Micro UA Comment Cath-culture not ind Ur Microscopic Review Not Reportable Urine Culture Comments Cath-cult not ind 06/01/18 06/02/18 06/02/18 20:54 04:16 08:31 WBC RBC Hgb Hct MCV MCH MCHC RDW Plt Count MPV Neut % (Auto) Lymph % (Auto) [place] % (Auto) Eos % (Auto) Baso % (Auto) Neut # (Auto) Lymph # (Auto) [place] # (Auto) Eos # (Auto) Baso # (Auto) WBC Differential Differential Comment PT INR Sodium 144 Potassium 3.8 D Chloride 108 H Carbon Dioxide 25.5 Anion Gap 11 BUN 33 H Creatinine 1.84 H Estimated GFR 35 L POC Glucose 184 H 224 H Random Glucose 198 H D Lactic Acid Calcium 7.9 L D Total Bilirubin AST ALT Alkaline Phosphatase Total Protein Albumin Lipase Urine Color Urine Clarity Urine pH Ur Specific [place] Urine Protein Urine Glucose (UA) Urine Ketones Urine Occult Blood Urine Nitrate Urine Bilirubin Urine Urobilinogen Ur Leukocyte Esterase Urine RBC Urine WBC Micro UA Comment Ur Microscopic Review Urine Culture Comments - Imaging Impressions Chest X-Ray 06/01/18 14:26 CONCLUSION: No acute cardiopulmonary disease. Abdomen/Pelvis CT 06/01/18 15:33 CONCLUSION: 1. Nonspecific bowel gas pattern which could represent a mild ileus and/or gastroenteritis. There is a small amount of ascitic fluid. Mild to moderate diverticulosis is noted greatest in the sigmoid colon. There is no gross evidence of acute diverticulitis however mild diverticulitis could easily be obscured due to lack of intravenous and oral contrast which limits the sensitivity of the exam. There is also streak artifact in the pelvis. 2. Anasarca. There is a small amount pericardial fluid and small amount of pleural fluid. 3. Apparent gastric diverticulum. Assessment and Plan - Assessment (1) Acute kidney injury Code(s): N17.9 - Acute kidney failure, unspecified Status: Acute (2) Urinary retention Code(s): R33.9 - Retention of urine, unspecified Status: Acute (3) Diabetes mellitus Code(s): E11.9 - Type 2 diabetes mellitus without complications Status: Acute - Plan 88-year-old male with past medical history significant for diabetes mellitus enlarged prostate, and hard of hearing who presented to the emergency department via [facility] due to lower abdominal pain and back pain. Patient is being admitted for urinary retention as well as acute kidney injury. Urinary retention Enlarged prostate -Afebrile on admission, no leukocytosis, UA not indicated for culture, lactic acid normal -Lei catheter inserted and draining clear yellow urine -CT of abdomen pelvis nonspecific bowel gas pattern, small amount of ascites fluid mild to moderate diverticulosis, anasarca and small amount of pericardial fluid and small amount of pleural fluid and gastric diverticulum. No noted hydronephrosis on CT scan. -Continue Flomax, consider discontinuing Lei catheter tomorrow for voiding trial -PT evaluation, out of bed Acute kidney injury -Likely secondary to dehydration and urinary retention -Creatinine improving 2.88-->1.84, BUN 46--> 33 -Continue NS at 70 mL's per hour Diabetes mellitus -Diabetic diet, hold glimepiride and metformin -Accu-Cheks with insulin sliding scale -DVT prophylaxis-subcu heparin Discussed Condition With: Patient, RN and Dr. Mcfadden Discharge Planning: Will likely DC home maybe with [facility] depends if we are able to remove Lei.
[2018-06-02] MEDS ORDERED: Heparin - SQ 10,000 UNITS/ML Vial SQ ONE (10:00)
[2018-06-02] MEDS: Sod Chloride 0.9% Inj 1,000 ML IV.CONT SCH ×2 (10:18→23:09)
--- NOTE | 2018-06-02 14:58 | P.DCO ---
- Home Health Nursing Order: Lei catheter maintenance - Case Management Consult No - Certification I have seen patient Farhad Glover on 06/02/18. My clinical findings support the need for the requested home health care services because: Limited mobility due to disease progression I certify that my clinical findings support that this patient is homebound because: Need for psychosocial assistance
[2018-06-03 08:34] LABS: Calcium 8.4 mg/dL (8.5-10.1); Carbon Dioxide 26.5 meq/L (21.0-32.0)
[2018-06-03] MEDS: Insulin NovoLOG Aspart Correctional Sugar Inj SQ SCH ×4 (08:40→21:47)
[2018-06-03] MEDS: Insulin Detemir Inj 1,000 UNIT/10 ML Vial SQ SCH (08:41)
--- NOTE | 2018-06-03 10:57 | P.DS ---
Date of admission: 06/01/18 17:45 Primary care physician: [facility] Brief History from admission: patient is a 88 y/o male with history of diabetes who presented to ER with abdominal pain. he says that he's had pain to the left flank for a few weeks. he also reports some pain to the lower abdomen.he denies any dysuria and gross hematuria. he denies any fever or chills. upon his arrival to ER, crawford cath was inserted and 1400 ml of urine was obtained after which the patient had instant relief. DS: Summary - Time Spent with Patient Total time spent providing and/or coordinating discharge services: - Quality: VTE Deep Vein Thrombosis/Pulmonary Embolism Present on Admission: No Exam Vital signs: Vital Signs 06/02/18 12:00 06/02/18 16:00 06/02/18 20:00 Temperature 97.8 F 97.9 F 98.0 F Pulse Rate 71 81 81 Respiratory Rate 18 18 16 Blood Pressure 140/68 136/69 142/67 H Pulse Oximetry 98 98 98 06/03/18 00:00 06/03/18 08:00 Temperature 98.4 F 97.4 F L Pulse Rate 68 68 Respiratory Rate 16 17 Blood Pressure 122/59 L 147/71 H Pulse Oximetry 96 97 Intake & Output 06/02/18 06/03/18 06/03/18 18:59 06:59 18:59 Intake Total 1979 / 1980 3000 / 3000 Output Total 1350 / 1350 1600 / 1600 Balance 630 / 630 1400 / 1400 Weight 72.3 kg Intake: IV 1000 / 1000 1000 / 1000 NS Inj 1,000 ML @ 70 mls/hr IV. 1000 / 1000 1000 / 1000 CONT .[id number] [facility] Rx#:[id number] Oral 980 / 980 1999 / 1999 Output: Urine 1350 / 1350 1600 / 1600 Other: Date of Last Bowel Movement 06/02/18 06/02/18 06/02/18 # Bowel Movements 3 Results Labs on day of discharge: Labs from last 24 hours 06/03/18 06/03/18 06/02/18 07:56 07:55 21:45 Sodium 143 Potassium 4.0 Chloride 106 Carbon Dioxide 26.5 Anion Gap 11 BUN 27 H Creatinine 1.37 H Estimated GFR 49 L POC Glucose 180 H 262 H Random Glucose 181 H Calcium 8.4 L 06/02/18 06/02/18 17:46 12:36 Sodium Potassium Chloride Carbon Dioxide Anion Gap BUN Creatinine Estimated GFR POC Glucose 140 H 175 H Random Glucose Calcium Preliminary micro results at discharge 06/01/18 14:20 Aerobic Blood Culture - Preliminary Blood - Peripheral No growth in 1 day Anaerobic Blood Culture - Preliminary No growth in 1 day 06/01/18 14:30 Aerobic Blood Culture - Preliminary Blood - Peripheral No growth in 1 day Anaerobic Blood Culture - Preliminary No growth in 1 day - Impressions ITS Impressions Chest X-Ray 06/01/18 14:26 CONCLUSION: No acute cardiopulmonary disease. Abdomen/Pelvis CT 06/01/18 15:33 CONCLUSION: 1. Nonspecific bowel gas pattern which could represent a mild ileus and/or gastroenteritis. There is a small amount of ascitic fluid. Mild to moderate diverticulosis is noted greatest in the sigmoid colon. There is no gross evidence of acute diverticulitis however mild diverticulitis could easily be obscured due to lack of intravenous and oral contrast which limits the sensitivity of the exam. There is also streak artifact in the pelvis. 2. Anasarca. There is a small amount pericardial fluid and small amount of pleural fluid. 3. Apparent gastric diverticulum. Discharge Plan - Physicians Team Primary Care Provider: [facility] [place] Attending Provider: Melania Mcfadden Other Providers: Oliva Baptiste
--- NOTE | 2018-06-03 15:05 | P.PN ---
Subjective Interval history: Follow-up visit for urinary retention. Patient seen and examined in bed in no acute distress. He denies any fevers, chills, nausea, vomiting, diarrhea, cough , shortness of breath or chest pain. Lei catheter was discontinued early this morning, no urgency to void yet. Patient denies any abdominal pain or suprapubic tenderness with palpation. Physical Exam Vital signs: Vital Signs 06/02/18 16:00 06/02/18 20:00 06/03/18 00:00 Temperature 97.9 F 98.0 F 98.4 F Pulse Rate 81 81 68 Respiratory Rate 18 16 16 Blood Pressure 136/69 142/67 H 122/59 L Pulse Oximetry 98 98 96 06/03/18 08:00 06/03/18 12:00 Temperature 97.4 F L 97.3 F L Pulse Rate 68 63 Respiratory Rate 17 17 Blood Pressure 147/71 H 164/75 H Pulse Oximetry 97 98 Intake & Output 06/02/18 06/03/18 06/03/18 18:59 06:59 18:59 Intake Total 1979 / 1979 3000 / 3000 Output Total 1350 / 1350 1600 / 1600 1350 / 1350 Balance 630 / 630 1400 / 1400 -1350 / -1350 Weight 72.3 kg Intake: IV 1000 / 1000 1000 / 1000 NS Inj 1,000 ML @ 70 mls/hr IV. 1000 / 1000 1000 / 1000 CONT .[id number] [facility] Rx#:[id number] Oral 980 / 980 2000 / 1999 Output: Urine 1350 / 1350 1600 / 1600 500 / 500 Urine Amount (Catheter) 850 / 850 Indwelling Urethral Catheter 850 / 850 Other: Date of Last Bowel Movement 06/02/18 06/02/18 06/02/18 # Bowel Movements 3 Narrative: GENERAL: Well-nourished, well-developed elderly male in no acute distress. SKIN: Warm and dry. HEAD: Atraumatic. Normocephalic. EYES: Pupils equal and round. No scleral icterus. No injection or drainage. ENT: No nasal bleeding or discharge. Mucous membranes pink and moist. NECK: Trachea midline. CARDIOVASCULAR: Regular rate and rhythm. RESPIRATORY: No accessory muscle use. Clear to auscultation. Breath sounds equal bilaterally. GASTROINTESTINAL: Abdomen soft, non-tender, nondistended. Positive bowel sounds. GENITOURINARY: Lei catheter draining clear yellow urine. MUSCULOSKELETAL: Extremities without clubbing, cyanosis, or edema. No obvious deformities. NEUROLOGICAL: Awake and alert. No obvious cranial nerve deficits. Motor grossly within normal limits. Normal speech. PSYCHIATRIC: Appropriate mood and affect; insight and judgment normal. - Urinary Catheter Management Indwelling Urethral Catheter Cath placed during this visit: yes, but has since been removed by the nurse Reason for continuing: Decision to DC catheter Insertion date: 06/01/18 Insertion time: 14:00 Removal date: 06/03/18 Removal time: 13:30 Results - Labs CBC & Chem 7: 06/01/18 14:30 06/03/18 07:56 Laboratory Results - last 24 hr 06/02/18 06/02/18 06/02/18 12:36 17:46 21:45 Sodium Potassium Chloride Carbon Dioxide Anion Gap BUN Creatinine Estimated GFR POC Glucose 175 H 140 H 262 H Random Glucose Calcium 06/03/18 06/03/18 06/03/18 07:55 07:56 11:49 Sodium 143 Potassium 4.0 Chloride 106 Carbon Dioxide 26.5 Anion Gap 11 BUN 27 H Creatinine 1.37 H Estimated GFR 49 L POC Glucose 180 H 245 H Random Glucose 181 H Calcium 8.4 L Microbiology 06/01/18 14:20 Blood - Peripheral Aerobic Blood Culture - Preliminary No growth in 2 days 06/01/18 14:20 Blood - Peripheral Anaerobic Blood Culture - Preliminary No growth in 2 days 06/01/18 14:30 Blood - Peripheral Aerobic Blood Culture - Preliminary No growth in 2 days 06/01/18 14:30 Blood - Peripheral Anaerobic Blood Culture - Preliminary No growth in 2 days Assessment and Plan - Plan 88-year-old male with past medical history significant for diabetes mellitus enlarged prostate, and hard of hearing who presented to the emergency department via [facility] due to lower abdominal pain and back pain. Patient is being admitted for urinary retention as well as acute kidney injury. Urinary retention Enlarged prostate -Afebrile on admission, no leukocytosis, UA not indicated for culture, lactic acid normal -Lei catheter inserted and draining clear yellow urine -CT of abdomen pelvis nonspecific bowel gas pattern, small amount of ascites fluid mild to moderate diverticulosis, anasarca and small amount of pericardial fluid and small amount of pleural fluid and gastric diverticulum. No noted hydronephrosis on CT scan. -Continue Flomax, DC Lei today with bladder training. 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
[2018-06-03] MEDS: Sod Chloride 0.9% Inj 1,000 ML IV.CONT SCH ×2 (21:46→21:47)
[2018-06-04] MEDS: Sod Chloride 0.9% Inj 1,000 ML IV.CONT SCH (01:38)
[2018-06-04] MEDS: Insulin NovoLOG Aspart Correctional Sugar Inj SQ SCH ×4 (08:21→20:24)
[2018-06-04] MEDS: Insulin Detemir Inj 1,000 UNIT/10 ML Vial SQ SCH (08:22)
--- NOTE | 2018-06-04 12:03 | P.PN ---
Subjective Interval history: Follow-up visit for urinary retention. Spoke with nurse reports patient continues to require intermittent straight catheterization as he is unable to void. Patient does become symptomatic with urinary retention complaining of suprapubic and back pain. Patient is seen and examined sitting up in recliner in no acute distress. He denies any fevers, chills, nausea, vomiting or diarrhea. Reports that his back pain has greatly improved with catheter. Physical Exam Vital signs: Vital Signs 06/03/18 16:00 06/03/18 20:00 06/04/18 00:00 Temperature 97.9 F 98.4 F 98.5 F Pulse Rate 74 69 92 H Respiratory Rate 17 17 18 Blood Pressure 151/79 H 139/63 116/57 L Pulse Oximetry 99 96 94 L 06/04/18 08:00 Temperature 98.2 F Pulse Rate 69 Respiratory Rate 18 Blood Pressure 175/81 H Pulse Oximetry 97 Intake & Output 06/03/18 06/04/18 06/04/18 18:59 06:59 18:59 Intake Total 3400 / 3400 600 / 600 Output Total 2170 / 2170 3000 / 3000 Balance 1230 / 1230 -2400 / -2400 Weight 74.5 kg Intake: IV 400 / 400 600 / 600 NS Inj 1,000 ML @ 70 mls/hr IV. 400 / 400 600 / 600 CONT .[id number] [facility] Rx#:[id number] Oral 3000 / 3000 Output: Urine 520 / 520 0 / 0 Urine Amount (Catheter) 1650 / 1650 3000 / 3000 Indwelling Urethral Catheter 850 / 850 Straight 800 / 800 3000 / 3000 Other: Date of Last Bowel Movement 06/02/18 06/02/18 # Bowel Movements 0 Narrative: GENERAL: Well-nourished, well-developed elderly male in no acute distress. SKIN: Warm and dry. HEAD: Atraumatic. Normocephalic. EYES: Pupils equal and round. No scleral icterus. No injection or drainage. ENT: No nasal bleeding or discharge. Mucous membranes pink and moist. NECK: Trachea midline. CARDIOVASCULAR: Regular rate and rhythm. RESPIRATORY: No accessory muscle use. Clear to auscultation. Breath sounds equal bilaterally. GASTROINTESTINAL: Abdomen soft, non-tender, nondistended. Positive bowel sounds. GENITOURINARY: Lei catheter draining clear yellow urine. MUSCULOSKELETAL: Extremities without clubbing, cyanosis, or edema. No obvious deformities. NEUROLOGICAL: Awake and alert. No obvious cranial nerve deficits. Motor grossly within normal limits. Normal speech. PSYCHIATRIC: Appropriate mood and affect; insight and judgment normal. - Urinary Catheter Management Indwelling Urethral Catheter Cath placed during this visit: yes, but has since been removed by the nurse Reason for continuing: Chronic Urinary Retention Insertion date: 06/04/18 Insertion time: 08:00 Removal date: 06/03/18 Removal time: 17:15 Straight Cath placed during this visit: no Reason for continuing: Not indwelling catheter Results - Labs CBC & Chem 7: 06/01/18 14:30 06/03/18 07:56 Laboratory Results - last 24 hr 06/03/18 06/03/18 06/04/18 17:58 19:58 07:54 POC Glucose 223 H 261 H 249 H 06/04/18 11:40 POC Glucose 295 H Microbiology 06/01/18 14:20 Blood - Peripheral Aerobic Blood Culture - Preliminary No growth in 3 days 06/01/18 14:20 Blood - Peripheral Anaerobic Blood Culture - Preliminary No growth in 3 days 06/01/18 14:30 Blood - Peripheral Aerobic Blood Culture - Preliminary No growth in 3 days 06/01/18 14:30 Blood - Peripheral Anaerobic Blood Culture - Preliminary No growth in 3 days Assessment and Plan - Plan 88-year-old male with past medical history significant for diabetes mellitus enlarged prostate, and hard of hearing who presented to the emergency department via [facility] due to lower abdominal pain and back pain. Patient is being admitted for urinary retention as well as acute kidney injury. Urinary retention Enlarged prostate -Afebrile on admission, no leukocytosis, UA not indicated for culture, lactic acid normal -Lei catheter inserted and draining clear yellow urine -CT of abdomen pelvis nonspecific bowel gas pattern, small amount of ascites fluid mild to moderate diverticulosis, anasarca and small amount of pericardial fluid and small amount of pleural fluid and gastric diverticulum. No noted hydronephrosis on CT scan. -Continue Flomax, and bethanechol, reinsert Lei catheter. Patient will need to follow-up with primary/neurologist at the [facility]. -Home health care to be set up by case management tomorrow for discharge. -PT evaluation, out of bed Acute kidney injury -Likely secondary to dehydration and urinary retention -Creatinine improving 2.88-->1.84-->1.37, BUN 46--> 33-->27 -Improved, patient eating and drinking adequately, discontinue fluids. -Check BMP in 2-3 days after discharge and follow-up with primary. Diabetes mellitus -Diabetic diet, hold glimepiride and metformin due to FARZANEH. -Blood sugars in the mid 200s, increase a.m. -Accu-Cheks with insulin sliding scale -DVT prophylaxis-subcu heparin Discussed Condition With: Discussed with patient and RN. Discharge Planning: Failed voiding trials, patient to be discharged with Lei catheter. Discharge tomorrow once home health has been set up for patient.
[2018-06-04] MEDS ORDERED: Insulin Detemir Inj 1,000 UNIT/10 ML Vial SQ SCH (15:03)
[2018-06-05 08:04] VITALS: BP 131/82; PULSE 75; RESP 16; TEMP 98.2; O2SAT 97
[2018-06-05] MEDS: Insulin NovoLOG Aspart Correctional Sugar Inj SQ SCH (08:50)
--- NOTE | 2018-06-05 09:10 | P.DS ---
<Nikia Humphrey - Last Filed: 06/05/18 12:56> Date of admission: 06/01/18 17:45 Primary care physician: [facility] Attending physician on discharge: Moreno Lemus Anticipated date of discharge: 06/05/18 Brief History from admission: patient is a 88 y/o male with history of diabetes who presented to ER with abdominal pain. he says that he's had pain to the left flank for a few weeks. he also reports some pain to the lower abdomen.he denies any dysuria and gross hematuria. he denies any fever or chills. upon his arrival to ER, crawford cath was inserted and 1400 ml of urine was obtained after which the patient had instant relief. DS: Medications - Discharge Medications Prescriptions: bethanechol chloride [Urecholine] 10 mg PO TID #90 tab docusate sodium [Colace] 100 mg PO DAILY #30 cap tamsulosin 0.4 mg PO DAILY #30 cap DS: Summary Hospital Course: 88-year-old male with past medical history significant for diabetes mellitus, enlarged prostate, and hard of hearing who presented to the emergency department on 06/01 via [facility] with complaints of lower abdominal pain and back pain. Crawford catheter was inserted in the emergency department and 1.4 L of urine removed with immediate relief of pain. CT of abdomen pelvis nonspecific bowel gas pattern, small amount of ascites fluid mild to moderate diverticulosis , anasarca and small amount of pericardial fluid and small amount of pleural fluid and gastric diverticulum. No noted hydronephrosis on CT scan. Patient was also treated for acute kidney injury likely secondary to dehydration with IV fluids and renal function improved. He was continued on Flomax and bethanechol was also added to medication regimen. His Crawford catheter was discontinued over the weekend however patient failed to void on his own requiring intermittent catheterizations. Patient also complained of pain along with urinary retention. Crawford catheter was reinserted and patient will be discharged today with catheter in place. [facility] primary care physician as well as urologist. This morning he is seen and examined resting in bed comfortably in no acute distress. Denies any fevers, chills, nausea, vomiting, diarrhea, cough, shortness of breath or chest pain. Discussed discharge plan, patient is agreeable his only request is transportation to his car. Case management has been following and will assist with set up. Patient understands that he will need to continue his current medications which have been prescribed and [facility]. Home health has also been set up for patient to follow-up at home due to Crawford catheter. - Time Spent with Patient Total time spent providing and/or coordinating discharge services: Less than 30 minutes - Quality: VTE Deep Vein Thrombosis/Pulmonary Embolism Present on Admission: No Exam Vital signs: Vital Signs 06/04/18 12:00 06/04/18 16:00 06/04/18 20:00 Temperature 98.3 F 97.2 F L 98.3 F Pulse Rate 77 77 70 Respiratory Rate 16 16 18 Blood Pressure 127/58 L 129/65 115/56 L Pulse Oximetry 96 98 96 06/05/18 00:00 06/05/18 08:00 Temperature 98.2 F Pulse Rate 75 Respiratory Rate 16 Blood Pressure 131/82 Pulse Oximetry 96 97 Intake & Output 06/04/18 06/05/18 06/05/18 18:59 06:59 18:59 Intake Total 1400 / 1400 Output Total 4500 / 4500 2500 / 2500 Balance -3100 / -3100 -2500 / -2500 Weight 74 kg Intake: Oral 1400 / 1400 Output: Urine 2600 / 2600 1500 / 1500 Urine Amount (Catheter) 1900 / 1900 1000 / 1000 Indwelling Urethral Catheter 1900 / 1900 1000 / 1000 Other: Date of Last Bowel Movement 06/02/18 # Bowel Movements 0 Narrative: GENERAL: Well-nourished, well-developed elderly male in no acute distress. SKIN: Warm and dry. HEAD: Atraumatic. Normocephalic. EYES: Pupils equal and round. No scleral icterus. No injection or drainage. ENT: No nasal bleeding or discharge. Mucous membranes pink and moist. NECK: Trachea midline. CARDIOVASCULAR: Regular rate and rhythm. RESPIRATORY: No accessory muscle use. Clear to auscultation. Breath sounds equal bilaterally. GASTROINTESTINAL: Abdomen soft, non-tender, nondistended. Positive bowel sounds. GENITOURINARY: Crawford catheter draining clear yellow urine. MUSCULOSKELETAL: Extremities without clubbing, cyanosis, or edema. No obvious deformities. NEUROLOGICAL: Awake and alert. No obvious cranial nerve deficits. Motor grossly within normal limits. Normal speech. PSYCHIATRIC: Appropriate mood and affect; insight and judgment normal. Results Labs on day of discharge: Labs from last 24 hours 06/05/18 06/04/18 06/04/18 07:28 19:16 16:32 POC Glucose 250 H 207 H 311 H 06/04/18 11:40 POC Glucose 295 H Preliminary micro results at discharge 06/01/18 14:20 Aerobic Blood Culture - Preliminary Blood - Peripheral No growth in 3 days Anaerobic Blood Culture - Preliminary No growth in 3 days 06/01/18 14:30 Aerobic Blood Culture - Preliminary Blood - Peripheral No growth in 3 days Anaerobic Blood Culture - Preliminary No growth in 3 days - Impressions ITS Impressions Chest X-Ray 06/01/18 14:26 CONCLUSION: No acute cardiopulmonary disease. Abdomen/Pelvis CT 06/01/18 15:33 CONCLUSION: 1. Nonspecific bowel gas pattern which could represent a mild ileus and/or gastroenteritis. There is a small amount of ascitic fluid. Mild to moderate diverticulosis is noted greatest in the sigmoid colon. There is no gross evidence of acute diverticulitis however mild diverticulitis could easily be obscured due to lack of intravenous and oral contrast which limits the sensitivity of the exam. There is also streak artifact in the pelvis. 2. Anasarca. There is a small amount pericardial fluid and small amount of pleural fluid. 3. Apparent gastric diverticulum. <Moreno Lemus - Last Filed: 06/05/18 17:50> Date of admission: 06/01/18 17:45 Primary care physician: [facility] DS: Summary - Time Spent with Patient Total time spent providing and/or coordinating discharge services: Exam Vital signs: Vital Signs 06/04/18 20:00 06/05/18 00:00 06/05/18 08:00 Temperature 98.3 F 98.2 F Pulse Rate 70 75 Respiratory Rate 18 16 Blood Pressure 115/56 L 131/82 Pulse Oximetry 96 96 97 Intake & Output 06/04/18 06/05/18 06/05/18 18:59 06:59 18:59 Intake Total 1400 / 1400 Output Total 4500 / 4500 2500 / 2500 Balance -3100 / -3100 -2500 / -2500 Weight 74 kg Intake: Oral 1400 / 1400 Output: Urine 2600 / 2600 1500 / 1500 Urine Amount (Catheter) 1900 / 1900 1000 / 1000 Indwelling Urethral Catheter 1900 / 1900 1000 / 1000 Other: Date of Last Bowel Movement 06/02/18 # Bowel Movements 0 Results Procedures completed during hospitalization: None Labs on day of discharge: Labs from last 24 hours 06/05/18 06/04/18 07:28 19:16 POC Glucose 250 H 207 H Preliminary micro results at discharge 06/01/18 14:20 Aerobic Blood Culture - Preliminary Blood - Peripheral No growth in 4 days Anaerobic Blood Culture - Preliminary No growth in 4 days 06/01/18 14:30 Aerobic Blood Culture - Preliminary Blood - Peripheral No growth in 4 days Anaerobic Blood Culture - Preliminary No growth in 4 days - Impressions ITS Impressions Chest X-Ray 06/01/18 14:26 CONCLUSION: No acute cardiopulmonary disease. Abdomen/Pelvis CT 06/01/18 15:33 CONCLUSION: 1. Nonspecific bowel gas pattern which could represent a mild ileus and/or gastroenteritis. There is a small amount of ascitic fluid. Mild to moderate diverticulosis is noted greatest in the sigmoid colon. There is no gross evidence of acute diverticulitis however mild diverticulitis could easily be obscured due to lack of intravenous and oral contrast which limits the sensitivity of the exam. There is also streak artifact in the pelvis. 2. Anasarca. There is a small amount pericardial fluid and small amount of pleural fluid. 3. Apparent gastric diverticulum. Discharge Plan - Discharge Order Discharge Orders: Discharge Order (Routine); Ordered 06/05/18 Ordered By: Nikia Humphrey - Physicians Team Primary Care Provider: [facility] Attending Provider: Moreno Lemus Other Providers: Oliva Baptiste
== END 2018-06-05 11:45 | disposition home health service (06) ==
LOC: NEDA 14:04 → NEPE 14:04 → N07 18:37
PROVIDERS: ADMIT Internal Medicine; ATTEND Internal Medicine